=== PATIENT | male | born 1935 | race Caucasian/White ===

== ENCOUNTER → 2019-10-31 10:07 | Outpatient (BNVA) | payer MEDICARE, SELFPAY | PROVIDERS: Family Provider Nurse Practitioner Family; PCP Nurse Practitioner Family; Visit Provider Urology | DX: N41.1 Chronic prostatitis (principal) | CPT/HCPCS: 81001 ==

== ENCOUNTER 2019-11-14 20:07 | Inpatient (IN) | payer MEDICARE, SELFPAY ==
[2019-11-14 20:11] VITALS: BP 167/87; PULSE 87; RESP 16; TEMP 37.6; O2SAT 95; BMI 25.7
--- NOTE | 2019-11-14 20:14 | XRR_ITS ---
PROCEDURE INFORMATION: Exam: XR Chest, 1 View Exam date and time: 11/14/2019 9:05 PM Age: 84 years old Clinical indication: Shortness of breath; Patient HX: Positive covid test 11/12/19. C/O fever, vomiting, generalized weakness. TECHNIQUE: Imaging protocol: XR of the chest Views: 1 view. COMPARISON: No relevant prior studies available. FINDINGS: Lungs: Subtle airspace disease predominantly of an interstitial nature within the right lung slightly greater than left some of which may be related to overlying soft tissues. Possible fibrosis. Consider CT. Pleural space: Unremarkable. No pleural effusion. No pneumothorax. Heart/Mediastinum: Unremarkable. No cardiomegaly. Bones/joints: Unremarkable. XR/XR chest 1V portable [id number] IMPRESSION: Subtle airspace disease predominantly of an interstitial nature within the right lung slightly greater than left some of which may be related to overlying soft tissues. Possible fibrosis. Consider CT. No focal infiltrate.
--- NOTE | 2019-11-14 20:21 | W.ED.FEVER ---
HPI - Fever General: Chief Complaint: Weakness Stated Complaint: COVID Time Seen by Provider: 11/14/19 20:11 Source: patient and EMS Mode of arrival: EMS Limitations: no limitations History of Present Illness: HPI Narrative: 84-year-old male who states he has not been feeling well since Tuesday. He had a COVID test on Tuesday that has came back positive. He states that he has had fevers along with vomiting and generalized weakness. He states he has had difficulty walking due to his weakness. Denies any cough or shortness of breath. He denies any worsening or improving factors. Associated symptoms: Reports nausea and vomiting; Deny chest pain or dysuria Review of Systems Const: Reports: fever(s) Eyes: Denies: blurry vision or eye discomfort ENMT: Denies: throat pain or dental pain Card: Denies: chest pain Resp: Denies: dyspnea GI: Reports: nausea and vomiting : Denies: dysuria Musc: Denies: neck pain or back pain Skin/Breast: Denies: rash Neuro: Reports: weakness in extremities Psych: Denies: depression Loe/Lymph: Denies: easy bruising All/Imm: Denies: urticaria PFSH ED PFSH: Medical History Chronic prostatitis Diabetes mellitus Family history of prostate cancer Surgical History H/O arthroscopy of right knee History of back surgery Family History Mother , at age 81 Cancer lung Father , at age 82 Cancer prostate Social History Smoking and tobacco status: never smoked Alcohol intake: never Marital status: Current occupational status: retired History of recent travel: No Physical Exam Const: COMMON NORMALS: no acute distress, patient oriented x3 and healthy appearing HENMT: COMMON NORMALS: normocephalic and atraumatic HEAD & SCALP: normocephalic and atraumatic Eye: COMMON NORMALS: Equal, round and reactive pupils present and EOMs intact bilaterally PUPIL: Yes Equal, round and reactive pupils present Neck/C-Spine: COMMON NORMALS: full ROM and supple Chest: COMMONS NORMALS: normal inspection of the chest and normal palpation of entire chest wall Resp: COMMON NORMALS: normal respiratory effort, No retractions, No use of accessory muscles and clear to auscultation bilaterally AUSCULTATION: clear to auscultation bilaterally Cardio: COMMON NORMALS: regular rate, regular rhythm and No murmurs present (Cardio) RATE: regular rate RHYTHM: regular rhythm GI: COMMON NORMALS: Normal to inspection, nondistended, normoactive bowel sounds present, Soft to palpation, non-tender and no masses PALPATION: Yes Soft to palpation Extremity: COMMON NORMALS: normal to inspection and full ROM Neuro: COMMON NORMALS: patient oriented x3, moves all extremities and no focal motor deficits Psych: COMMON NORMALS: mental status grossly normal, Normal thought process present and cooperative THOUGHT PROCESS: Normal thought process present Skin: COMMON NORMALS: no rashes or lesions noted and no wounds GENERAL SKIN EXAM: no rashes or lesions noted Course Vital Signs: Vital signs: Vital Signs Temperature 99.6 F 11/14/19 20:11 Pulse Rate 87 11/14/19 20:11 Respiratory Rate 16 11/14/19 20:11 Blood Pressure 167/87 11/14/19 20:11 Pulse Oximetry 95 11/14/19 20:11 MDM - Fever MDM Narrative: Medical decision making narrative: Chalo presents here with generalized weakness along with vomiting likely causing his hyponatremia. So had a fever and did test positive for COVID-19 2 days ago. I spoke to [facility] in [place] and they will not accept him at this time as he is not requiring oxygen and they do not like he needs the viral ICU. I spoke to Dr. Brown and will admit here for his hyponatremia at this time. Lab Data: Labs: Lab Results 11/14/19 11/14/19 11/14/19 Range/Units 20:40 20:40 20:40 WBC 7.6 (4.0-10.0) 10^3/ uL RBC 3.92 L (4.1-5.3) 10^6/u L Hgb 11.8 (11.7-16.6) g/dL Hct 35.0 L (42.0-52.0) % MCV 89.3 (80-94) fL MCH 30.1 (28.0-34.0) pg MCHC 33.7 (30.0-36.0) g/dL RDW 14.5 (12.1-15.1) % Plt Count 159 (130-400) 10^3/c mm MPV 9.5 (7.4-10.4) fL Neut % (Auto) 89.2 % Lymph % (Auto) 4.2 % [place] % (Auto) 5.9 % Eos % (Auto) 0.1 % Baso % (Auto) 0.1 % Neut # (Auto) 6.81 (1.8-7.7) 10^3/u L Lymph # (Auto) 0.3 L (0.8-4.8) 10^3/u L [place] # (Auto) 0.5 (0.2-0.9) 10^3/u L Eos # (Auto) 0.0 (0.0-0.8) 10^3/u L Baso # (Auto) 0.0 (0.0-0.1) 10^3/u L Nucleated RBC % (a uto) 0 % Nucleated RBCs # 0.0 /100WBC PT 14.60 H (10.5-13.3) SECO NDS INR 1.11 (0.8-1.2) Fibrinogen 551 H (184-529) mg/dL D-Dimer 1.76 H (0-0.59) ug/mIFE U Sodium 121 L (136-145) mmol/L Potassium 4.5 (3.5-5.1) mmol/L Chloride 88 L (98-107) mmol/L Carbon Dioxide 20 L (22-29) mmol/L Anion Gap 17.5 (5-19) BUN 13 (8-23) mg/dL Creatinine 0.9 (0.7-1.2) mg/dL Glucose 167 H (65-115) mg/dL Calculated Osmolal ity 252 L (285-295) mOsm/k g Calcium 8.7 (8.5-10.5) mg/dL Total Bilirubin 1.6 H (0.15-1.2) mg/dL AST 36 (0-40) U/L ALT 14 (0-41) U/L Alkaline Phosphata se 73 (40-130) IU/L Total Protein 7.0 (6.6-8.7) g/dL Albumin 4.1 (3.5-5.2) g/dL Globulin 2.9 (1.3-4.6) g/dL Imaging Data^: CXR: Attestation: I personally reviewed and interpreted this imaging study as follows: My impression: no acute abnormality Discharge Plan Discharge Patient Disposition: Admitted As Inpatient Clinical Impression: COVID-19, Weakness, Acute hyponatremia Vomiting Qualifiers: Vomiting type: unspecified Condition: Stable Coding Level of Care Code ED 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
[2019-11-14] MEDS: sodium chloride 0.9% 1,000 ML 999 ML IV (21:24)
[2019-11-14 21:33] LABS: Alanine Aminotransferase 14 U/L (0-41); Albumin Level 4.1 g/dL (3.5-5.2); Alkaline Phosphatase 73 IU/L (40-130); Anion Gap 17.5 (5-19); Aspartate Amino Transferase 36 U/L (0-40); Basophils % 0.1 %; Blood Urea Nitrogen 13 mg/dL (8-23); Calcium 8.7 mg/dL (8.5-10.5); Carbon Dioxide 20 mmol/L (22-29); Chloride 88 mmol/L (98-107); Eosinophils % 0.1 %; Globulin 2.9 g/dL (1.3-4.6); Glucose 167 mg/dL (65-115); Hemoglobin 11.8 g/dL (11.7-16.6); Lymphocytes # 0.3 10^3/uL (0.8-4.8); Lymphocytes % 4.2 %; Mean Corpuscular HGB Conc 33.7 g/dL (30.0-36.0); Mean Corpuscular Hemoglobin 30.1 pg (28.0-34.0); Mean Corpuscular Volume 89.3 fL (80-94); Mean Platelet Volume 9.5 fL (7.4-10.4); Monocytes # 0.5 10^3/uL (0.2-0.9); Monocytes % 5.9 %; Neutrophils # 6.81 10^3/uL (1.8-7.7); Neutrophils % 89.2 %; Nucleated Red Blood Cells % 0 %; Osmolality Calculated 252 mOsm/kg (285-295); Platelet Count 159 10^3/cmm (130-400); Potassium 4.5 mmol/L (3.5-5.1); Red Blood Count 3.92 10^6/uL (4.1-5.3); Red Cell Distribution Width 14.5 % (12.1-15.1); Sodium 121 mmol/L (136-145); Total Bilirubin 1.6 mg/dL (0.15-1.2); White Blood Count 7.6 10^3/uL (4.0-10.0)
[2019-11-14 22:00] LABS: INR 1.11 (0.8-1.2)
[2019-11-14 22:05] LABS: D Dimer 1.76 ug/mIFEU (0-0.59)
[2019-11-14 22:06] LABS: Fibrinogen 551 mg/dL (184-529)
[2019-11-14 22:22] VITALS: BP 129/72; PULSE 72; RESP 22; O2SAT 93
[2019-11-15] VITALS (55 sets, daily range): BP systolic 106–186; BP diastolic 61–111; PULSE 66–103; RESP 15–31; TEMP 36.7–37.4; O2SAT 77–99
--- NOTE | 2019-11-15 00:48 | P.HP_ITS ---
Providers/Chief Complaint Admitting Physician: Renée Carter Primary Care Provider: Pamela Aguila ([facility] [address], [address] [place] [address], phone [phone], fax [phone]) Chief Complaint: COVID History of Present Illness Chalo Hartman is a 84 year old male who presented to the emergency room with nausea and vomiting and general malaise. On Tuesday last week he underwent COVID testing. Results came back positive on Tuesday. He started having vomiting on Tuesday. He was feeling a bit nauseated prior to that. He has had several episodes of vomiting today and has not been able to keep much of any liquid down. He is felt weak and tired and had difficulty getting around the house and taking care of his activities of daily living. He has had fever off and on since last week. He denies actual shortness of breath, cough, sore throat or chest pain. His mouth is dry. [place] go to the bathroom. It sounds like some other people may have been in the bathroom at the time and he thinks that is probably where he got COVID exposure. No other known exposures. His is also positive. In the emergency room, i n addition to continued nausea and vomiting, he was noted to have lymphopenia, elevated d-dimer and fibrinogen along with hyponatremia, elevated bilirubin and some other abnormalities. Clinically he looked quite dry. He is being admitted for further care. His is also being admitted with symptoms and laboratory abnormalities. Review of Systems Const: Reports: chills and change in appetite; Denies: fever(s) Eyes: Denies: change in vision ENMT: Reports: dry mouth; Denies: throat pain, hoarseness, nasal congestion or post nasal drip Card: Reports: lightheadedness and acrocyanosis; Denies: chest pain, palpitations, edema or dyspnea on exertion Resp: Denies: dyspnea, productive cough, non-productive cough, wheezing, pain on inspiration or chest congestion GI: Reports: nausea and vomiting; Denies: abdominal pain, hematemesis, diarrhea, constipation, bloating, GI cramping, hematochezia or melena : Reports: urinary hesitancy and oliguria; Denies: difficulty urinating (nothing new) or dysuria Musc: Reports: muscle weakness; Denies: extremity pain or extremity swelling Skin/Breast: Denies: rash, pruritus or sores Neuro: Reports: numbness in extremities and other (general weakness); Denies: headache(s) or weakness in extremities Psych: Denies: anxiety or depression Leo/Lymph: Denies: easy bruising or easy bleeding Medications/Allergies Home Medications Medication Instructions Recorded Confirmed Last Taken Type atenolol 50 mg tablet 50 mg PO DAILY 10/31/19 11/15/19 11/13/19 History cetirizine 10 mg capsule 10 mg PO DAILY 10/31/19 11/15/19 Unknown History cholecalciferol (vitamin D3) 1,250 PO 10/31/19 10/31/19 Unknown History mcg (50,000 unit) capsule meloxicam 15 mg tablet 15 mg PO DAILY 10/31/19 11/15/19 11/13/19 History tramadol 50 mg tablet 50 mg PO BID PRN 10/31/19 11/15/19 Unknown History gabapentin [Neurontin] 300 mg PO BID 11/15/19 11/15/19 11/13/19 History lisinopril 20 mg PO DAILY 11/15/19 11/15/19 11/13/19 History sertraline 25 mg PO DAILY@18 11/15/19 11/15/19 Unknown History Allergies Allergy/AdvReac Type Severity Reaction Status Date / Time ergocalciferol (vitamin D2) Allergy Unknown Verified 10/30/19 08:48 [From Vitamin D2] PFSH Acute PFSH: Medical History Chronic prostatitis Diabetes mellitus patient does not endorse this diagnosis today but has high blood sugar Family history of prostate cancer Hypertension Osteoarthritis Surgical History H/O arthroscopy of right knee History of back surgery Family History Mother , at age 81 Cancer lung Father , at age 82 Cancer prostate Social History Smoking and tobacco status: never smoked Alcohol intake: never Marital status: Current occupational status: retired History of recent travel: No Vitals/I&O/Wt Last Vital Signs Temp 99.6 F 11/14/19 20:11 Pulse 72 11/14/19 22:22 Resp 22 H 11/14/19 22:22 BP 129/72 11/14/19 22:22 Pulse Ox 93 11/14/19 22:22 Weight last 48 hrs Weight 83.915 kg Physical Exam Const: OTHER: Alert, oriented, mildly ill-appearing, cooperative HENMT: OTHER: Normocephalic atraumatic, membranes dry mucous membranes, no rhinorrhea, no posterior or erythema. Eye: OTHER: Pupils equally round and reactive to light, mild conjunctival injection Neck/C-Spine: OTHER: Supple Resp: OTHER: Clear to auscultation bilaterally no rales rhonchi or wheezes noted, no accessory muscle use noted, no coughing. Cardio: OTHER: Regular rate and rhythm, no murmurs. Decreased peripheral pulses with bluish discoloration to toes of both feet. GI: OTHER: Abdomen soft, nontender, nondistended, positive bowel sounds : OTHER: Normal external genitalia Extremity: NARRATIVE EXTREMITY EXAM: No pitting edema or acute synovitis Neuro: OTHER: Face symmetric, speech clear, handgrip equal, strength equal both feet although he is generally weak to the point that he has a hard time moving himself back in the bed Skin: NARRATIVE SKIN EXAM: Patient with acrocyanosis involving the feet and distal legs. None noted at the fingertips. Skin is dry with decreased turgor. There is mild erythema to both cheeks and his nos.e Data : 11/14/19 20:40 11/15/19 05:20 Other Labs: Laboratory Tests 11/14/19 11/14/19 20:40 20:40 Lymph # (Auto) 0.3 L PT 14.60 H INR 1.11 Fibrinogen 551 H D-Dimer 1.76 H Liver Function 11/14/19 Range/Units 20:40 Total Bilirubin 1.6 H (0.15-1.2) mg/dL AST 36 (0-40) U/L ALT 14 (0-41) U/L Alkaline Phosphatase 73 (40-130) IU/L Albumin 4.1 (3.5-5.2) g/dL CXR: I personally reviewed and interpreted this imaging study as follows: My impression: And with right upper lobe infiltrate and right-sided pulmonary congestion, peribronchial thickening. Film is rotated. No pleural effusions. A&P Assessment and plan (1) COVID-19: Patient symptomatic with generalized weakness, malaise, nausea and vomiting and multiple laboratory abnormalities. Currently with elevated fibrinogen and d-dimer, total bilirubin and lymphopenia. Is not complaining of being short of breath, cough or requiring oxygen but does have abnormal ap pearing chest x-ray. Status: Acute (2) Hypertension: Status: Acute Qualifiers: Hypertension type: essential hypertension Qualified Code(s): I10 - Essential (primary) hypertension (3) Dehydration: With significant hyponatremia and hypochloremia Status: Acute (4) Hyperglycemia: With unclear history of diabetes. Not currently on any treatment for this Status: Acute (5) Chronic prostatitis: Followed at Dr. Vargas's office, currently without change in symptoms Status: Acute Additional A&P Information Inpatient admission IV fluids Additional laboratory studies for monitoring clinical course and prognostic factors have been ordered Continue home atenolol, gabapentin and half lisinopril dose, sertraline and tramadol Lovenox for DVT prophylaxis Serial neuro exams Monitor oxygen saturations closely Sliding scale insulin, check A1c Follow-up official chest x-ray interpretation Supportive care otherwise Plans were discussed with patient and he was given an opportunity to ask questions After discussion of wishes regarding CODE STATUS, patient expressed desire not to be resuscitated and to be allowed natural . He is okay with ICU admission and critical care management otherwise but does not want intubation or CPR. Attestations Medical Necessity Statement*: Anticipated stay greater than 2 midnights in 84-year-old who is COVID positive with symptoms and abnormal laboratory studies and other findings as indicated. Requires close monitoring and supportive care. High risk of rapid clinical decline. 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
[2019-11-15 01:31] LABS: Add On to Lab Order(s) Added
[2019-11-15 01:43] LABS: C Reactive Protein 84.5 mg/L (0.0-4.9); Ferritin 839 ng/mL (30-400); Lactate Dehydrogenase 272 U/L (135-225); Magnesium 1.8 mg/dL (1.7-2.3)
[2019-11-15 02:03] LABS: NT Pro B Type Natriuretic Pept 3199 pg/mL (0-450)
[2019-11-15 02:10] LABS: Creatine Phosphokinase 533 U/L (39-308)
[2019-11-15] MEDS: sodium chloride 0.9% 1,000 ML 75 ML IV ×2 (03:12→16:39)
[2019-11-15] MEDS: enoxaparin 40 mg/0.4 mL Syringe SUBCUT (03:12)
[2019-11-15 06:03] LABS: Fibrinogen 583 mg/dL (184-529)
[2019-11-15 06:05] LABS: Alanine Aminotransferase 17 U/L (0-41); Albumin Level 4.2 g/dL (3.5-5.2); Alkaline Phosphatase 73 IU/L (40-130); Anion Gap 17.9 (5-19); Aspartate Amino Transferase 42 U/L (0-40); Blood Urea Nitrogen 13 mg/dL (8-23); Calcium 8.9 mg/dL (8.5-10.5); Carbon Dioxide 20 mmol/L (22-29); Chloride 91 mmol/L (98-107); Globulin 3.2 g/dL (1.3-4.6); Glucose 115 mg/dL (65-115); Osmolality Calculated 257 mOsm/kg (285-295); Phosphorus 2.7 mg/dL (2.5-4.5); Potassium 3.9 mmol/L (3.5-5.1); Sodium 125 mmol/L (136-145); Total Bilirubin 1.3 mg/dL (0.15-1.2); Total Protein 7.4 g/dL (6.6-8.7)
[2019-11-15 06:06] LABS: D Dimer 2.23 ug/mIFEU (0-0.59)
[2019-11-15 06:10] LABS: Lactate Dehydrogenase 298 U/L (135-225); Magnesium 1.9 mg/dL (1.7-2.3)
[2019-11-15 06:16] LABS: Estmated Average Glucose 126
[2019-11-15 07:46] LABS: Glucose Point of Care 110 mg/dL (70-110)
[2019-11-15] MEDS: atenolol 50 mg Tablet PO (08:27)
[2019-11-15] MEDS: lisinopril 20 mg Tablet 10 MG PO (08:27)
[2019-11-15] MEDS: sertraline 50 mg Tablet 25 MG PO (08:27)
[2019-11-15] MEDS: gabapentin 300 mg Capsule PO ×2 (08:27→16:53)
[2019-11-15] MEDS: cetirizine 10 mg Tablet PO (08:27)
[2019-11-15] MEDS: TRAMadol 50 mg Tablet PO ×2 (09:01→17:27)
[2019-11-15 11:08] LABS: Glucose Point of Care 135 mg/dL (70-110)
--- NOTE | 2019-11-15 11:24 | P.PN_ITS ---
Subjective Subjective: Interval history: patient states he has episodes of shortness of breath, has weakness but improved, still has a poor appetite but states that it is the hospital food, no fever, has a persistent productive cough, no chest pain, was able to ambulate with assistance Vitals/I&O/Wt Last Vital Signs Temp 99.4 F 11/15/19 08:00 Pulse 92 11/15/19 08:00 Resp 22 H 11/15/19 08:00 BP 186/105 11/15/19 08:00 Pulse Ox 99 11/15/19 08:00 11/14/19 11/15/19 11/15/19 22:59 06:59 14:59 Intake Total 1000 / 1000 222 / 1222 300 / 300 Output Total 600 / 600 200 / 200 Balance 1000 / 1000 -378 / 622 100 / 100 Weight last 48 hrs Weight 83.915 kg Physical Exam Const: COMMON NORMALS: no acute distress and patient oriented x3 HENMT: COMMON NORMALS: normocephalic HEAD & SCALP: normocephalic Neck/C-Spine: COMMON NORMALS: no JVD Resp: COMMON NORMALS: normal respiratory effort, No retractions and No use of accessory muscles AUSCULTATION: crackles and wheezes Cardio: COMMON NORMALS: no JVD, regular rate, regular rhythm, S1 normal heart sound present and S2 normal heart sound present RATE: regular rate RHYTHM: regular rhythm HEART SOUNDS: S1 normal heart sound present and S2 normal heart sound present GI: COMMON NORMALS: Normal to inspection, nondistended, normoactive bowel sounds present, Soft to palpation, non-tender, No hepatosplenomegaly present, no masses and no bruits PALPATION: Yes Soft to palpation and Yes No hepatosplenomegaly present Extremity: COMMON NORMALS: capillary refill normal, no clubbing, cyanosis or edema, no calf tenderness and no pedal edema Neuro: COMMON NORMALS: patient oriented x3 Psych: COMMON NORMALS: mental status grossly normal Data : 11/14/19 20:40 11/15/19 05:20 A&P Assessment and plan (1) COVID-19: Patient symptomatic with generalized weakness, malaise, nausea and vomiting and multiple laboratory abnormalities. Currently with elevated fibrinogen and d-dimer, total bilirubin and lymphopenia. Is not complaining of being short of breath, cough or requiring oxygen but does have abnormal appearing chest x-ray. -has intermittent episodes of shortness of breath,and desats to the low 60's (nurses tell me it is the probe that is misreading), is not requiring o2 at this time, still weak, has poor appeptie -changed code status to FULL CODE Status: Acute (2) Pulmonary fibrosis: -Seen on chest x-ray, no smoking history, no new exposures, possible Covid 19 associated -Has a cough, no shortness of breath, no oxygen requirement -Monitor respiratory status Status: Acute (3) Hypertension: -Continue lisinopril 10 mg daily -Add Norvasc 10 mg daily Status: Acute Qualifiers: Hypertension type: essential hypertension Qualified Code(s): I10 - Essential (primary) hypertension (4) Dehydration: With significant hyponatremia and hypochloremia Status: Acute (5) Hyperglycemia: With unclear history of diabetes. Not currently on any treatment for this Globin A1c 6 Status: Acute (6) Chronic prostatitis: Followed at Dr. Vargas's office, currently without change in symptoms Status: Acute (7) Hyponatremia: Status: Acute (8) Elevated d-dimer: Status: Acute (9) Elevated CK: Status: Acute (10) Elevated brain natriuretic peptide (BNP) level: Status: Acute Additional A&P Information Inpatient admission IV fluids Additional laboratory studies for monitoring clinical course and prognostic factors have been ordered Continue home atenolol, gabapentin and half lisinopril dose, sertraline and tramadol Lovenox for DVT prophylaxis Serial neuro exams Monitor oxygen saturations closely Sliding scale insulin Supportive care otherwise Plans were discussed with patient and he was given an opportunity to ask questions Attestations Medical Necessity Statement*: requires countinued hospitalization for covid19, shortness of breath Coding Level of Care Code 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
[2019-11-15] MEDS: amlodipine 10 mg Tablet PO (12:21)
[2019-11-15 16:38] LABS: Glucose Point of Care 187 mg/dL (70-110)
[2019-11-15 20:37] LABS: Glucose Point of Care 195 mg/dL (70-110)
[2019-11-16] VITALS (16 sets, daily range): BP systolic 124–168; BP diastolic 71–82; PULSE 67–110; RESP 15–28; TEMP 36–38.6; O2SAT 84–99
[2019-11-16] MEDS: enoxaparin 40 mg/0.4 mL Syringe SUBCUT (02:36)
[2019-11-16] MEDS: acetaminophen 325 mg Tablet 650 MG PO ×2 (03:03→17:22)
[2019-11-16 05:50] LABS: Troponin T (5th) Once 64 ng/L (0-15)
[2019-11-16] MEDS: sodium chloride 0.9% 1,000 ML 75 ML IV ×2 (05:56→18:02)
[2019-11-16 06:10] LABS: Basophils % 0.2 %; Eosinophils % 0.2 %; Hematocrit 28.6 % (42.0-52.0); Hemoglobin 9.7 g/dL (11.7-16.6); Lymphocytes # 0.5 10^3/uL (0.8-4.8); Lymphocytes % 8.2 %; Mean Corpuscular HGB Conc 33.9 g/dL (30.0-36.0); Mean Corpuscular Hemoglobin 29.8 pg (28.0-34.0); Mean Corpuscular Volume 87.7 fL (80-94); Mean Platelet Volume 9.6 fL (7.4-10.4); Monocytes # 0.4 10^3/uL (0.2-0.9); Monocytes % 6.9 %; Neutrophils # 4.61 10^3/uL (1.8-7.7); Nucleated Red Blood Cells % 0 %; Platelet Count 148 10^3/cmm (130-400); Red Blood Count 3.26 10^6/uL (4.1-5.3); Red Cell Distribution Width 14.3 % (12.1-15.1); White Blood Count 5.5 10^3/uL (4.0-10.0)
[2019-11-16 06:33] LABS: Alanine Aminotransferase 23 U/L (0-41); Albumin Level 3.3 g/dL (3.5-5.2); Alkaline Phosphatase 57 IU/L (40-130); Anion Gap 15.7 (5-19); Aspartate Amino Transferase 65 U/L (0-40); Blood Urea Nitrogen 13 mg/dL (8-23); Carbon Dioxide 20 mmol/L (22-29); Chloride 93 mmol/L (98-107); Globulin 2.6 g/dL (1.3-4.6); Glucose 99 mg/dL (65-115); Osmolality Calculated 256 mOsm/kg (285-295); Potassium 3.7 mmol/L (3.5-5.1); Sodium 125 mmol/L (136-145); Total Bilirubin 1.2 mg/dL (0.15-1.2); Total Protein 5.9 g/dL (6.6-8.7)
[2019-11-16 06:34] LABS: Magnesium 1.8 mg/dL (1.7-2.3)
[2019-11-16 06:35] LABS: Troponin T (5th) Once 88 ng/L (0-15)
[2019-11-16 06:45] LABS: CKMB 8.6 ng/mL (0-10.4); Lactate Dehydrogenase 240 U/L (135-225); NT Pro B Type Natriuretic Pept 4219 pg/mL (0-450)
[2019-11-16 07:04] LABS: CKMB Relative Index 0.8 % (0.0-5.3); Ferritin 1147 ng/mL (30-400)
[2019-11-16 07:05] LABS: Creatine Phosphokinase 1025 U/L (39-308)
[2019-11-16 07:38] LABS: Glucose Point of Care 107 mg/dL (70-110)
[2019-11-16 08:05] LABS: INR 1.17 (0.8-1.2)
[2019-11-16 08:08] LABS: D Dimer 1.99 ug/mIFEU (0-0.59)
[2019-11-16] MEDS: lisinopril 20 mg Tablet 10 MG PO (08:09)
[2019-11-16] MEDS: cetirizine 10 mg Tablet PO (08:09)
[2019-11-16] MEDS: atenolol 50 mg Tablet PO (08:09)
[2019-11-16] MEDS: gabapentin 300 mg Capsule PO ×2 (08:09→17:04)
[2019-11-16] MEDS: amlodipine 10 mg Tablet PO (08:09)
[2019-11-16] MEDS: sertraline 50 mg Tablet 25 MG PO (08:10)
[2019-11-16 08:35] LABS: Fibrinogen 538 mg/dL (184-529)
--- NOTE | 2019-11-16 11:49 | XRR_ITS ---
PROCEDURE INFORMATION: Exam: XR Chest, 1 View Exam date and time: 11/16/2019 12:39 PM Age: 84 years old Clinical indication: Shortness of breath; Additional info: Status of covid lung condition/sob TECHNIQUE: Imaging protocol: XR of the chest Views: 1 view. COMPARISON: CR XR chest 1V portable [id number] 11/14/2019 8:54 PM FINDINGS: Lungs: Unremarkable. No consolidation. Pleural space: Unremarkable. No pleural effusion. No pneumothorax. Heart/Mediastinum: Unremarkable. No cardiomegaly. Bones/joints: Unremarkable. XR/XR chest 1V portable [id number] IMPRESSION: No acute findings.
--- NOTE | 2019-11-16 12:05 | PC.RESP ---
Pulmonary Rehab information sent to patient.
--- NOTE | 2019-11-16 13:10 | PC.RESP ---
Pulmonary Rehab information sent to patient.
[2019-11-16] MEDS: benzonatate 100 mg Capsule PO (15:52)
--- NOTE | 2019-11-16 16:12 | PM.PN ---
Subjective Subjective: Interval history: Overnight patient had one febrile episode, continue to have poor appetite, respiratory status remained stable, however this afternoon patient had an episode of respiratory distress, coughing spell, produced brown-red sputum, required 10 L oxygen mask, saturating in the high 90s, also tachycardia heart rates normal sinus rhythm in the high 120s, During my examination, patient remains on 10 L, oxygen mask, saturating high 90s, heart rates in the 100s, sinus rhythm, he is complaining of shortness of breath, difficulty getting a breath in, has productive sputum, clinically mild retractions, mild nasal flaring, he is belly breathing, but able to speak full sentences, looks a bit dehydrated, looks a bit more ill this afternoon, states that he continues to have a poor appetite, nurses tell me he wet the bed a couple of times, he feels too weak to get up out of bed I provided a couple options to patient, first we will get a repeat arterial blood gas can, to see how he is doing We can get remdesivir, but it will be here by tomorrow afternoon at least, he could wait until then, but his respiratory status might worsen Other options I offered him was transferred up to [facility] or [facility] He still wants to be a full code, is okay with intubation if his respiratory status starts to decline He states that he wants to stay here, see how he does, and if he worsens he is okay to go to a tertiary level car Vitals/I&O/Wt Last Vital Signs Temp 97.4 F L 11/16/19 14:46 Pulse 81 11/16/19 14:46 Resp 21 H 11/16/19 14:46 BP 137/72 11/16/19 14:46 Pulse Ox 97 11/16/19 14:36 11/16/19 11/16/19 11/16/19 06:59 14:59 22:59 Intake Total 1716.25 / 3216.25 1150 / 1150 Output Total 175 / 1175 650 / 650 Balance 1541.25 / 2041.25 500 / 500 Weight last 48 hrs Weight 83.915 kg Physical Exam Const: COMMON NORMALS: patient oriented x3 and alert GENERAL APPEARANCE: ill appearing HENMT: COMMON NORMALS: normocephalic HEAD & SCALP: normocephalic Neck/C-Spine: COMMON NORMALS: no lymphadenopathy Resp: COMMON NORMALS: normal respiratory effort EFFORT & INSPECTION: Yes able to speak in complete sentences, Yes tachypneic, Yes Actively coughing and Yes uses accessory muscles AUSCULTATION: rhonchi and wheezes Cardio: COMMON NORMALS: regular rhythm, S1 normal heart sound present and S2 normal heart sound present RATE: tachycardic RHYTHM: regular rhythm HEART SOUNDS: S1 normal heart sound present and S2 normal heart sound present GI: COMMON NORMALS: Normal to inspection, nondistended, normoactive bowel sounds present, Soft to palpation and non-tender PALPATION: Yes Soft to palpation Extremity: COMMON NORMALS: normal to inspection and capillary refill normal Neuro: COMMON NORMALS: patient oriented x3 SENSORIUM/ORIENTATION: Yes alert Data : 11/16/19 05:30 11/16/19 05:30 A&P Assessment and plan (1) COVID-19: Patient symptomatic with generalized weakness, malaise, nausea and vomiting and multiple laboratory abnormalities. Currently with elevated fibrinogen and d-dimer, total bilirubin and lymphopenia at 0.5.Hemoglobin 9.7, serum sodium, 125, bicarb 20, AST 65, creatinine kinase 1025, CRP 14.3, BNP 4219 -Chest x-ray this morning in my opinion shows right right lung infiltrates which seem new -Overnight has tachypnea episodes, T-max 101.4 -This afternoon had episodes of respiratory distress, on 10 L oxygen mask, tachycardia, currently mild retractions, nasal flaring, mild belly breathing, complaining of shortness of breath -We will repeat arterial blood gas -If patient continues to worsen, will transfer up to [facility] -If patient improves or stays stable, will consider keeping him here, and he can get remdesvir tomorrow -Still wants to remain a full code, if his respiratory status worsens, is okay with intubation -We will get sputum cultures -changed code status to FULL CODE Status: Acute (2) Pulmonary fibrosis: -Seen on chest x-ray, no smoking history, no new exposures, possible Covid 19 associated -Has a cough, no shortness of breath, no oxygen requirement -Monitor respiratory status Status: Acute (3) Hypertension: -Continue lisinopril 10 mg daily -Add Norvasc 10 mg daily Status: Acute Qualifiers: Hypertension type: essential hypertension Qualified Code(s): I10 - Essential (primary) hypertension (4) Dehydration: With significant hyponatremia and hypochloremia Status: Acute (5) Hyperglycemia: With unclear history of diabetes. Not currently on any treatment for this Globin A1c 6 Status: Acute (6) Chronic prostatitis: Followed at Dr. Vargas's office, currently without change in symptoms Status: Acute (7) Hyponatremia: Status: Acute (8) Elevated d-dimer: Status: Acute (9) Elevated CK: Status: Acute (10) Elevated brain natriuretic peptide (BNP) level: Status: Acute Additional A&P Information Inpatient admission IV fluids Additional laboratory studies for monitoring clinical course and prognostic factors have been ordered Continue home atenolol, gabapentin and half lisinopril dose, sertraline and tramadol Lovenox for DVT prophylaxis Serial neuro exams Monitor oxygen saturations closely Sliding scale insulin Supportive care otherwise Plans were discussed with patient and he was given an opportunity to ask questions Attestations Medical Necessity Statement*: Patient requires continued hospitalization due to acute respiratory failure secondary to COVID-19 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
[2019-11-16 16:20] LABS: Glucose Point of Care 148 mg/dL (70-110)
[2019-11-16 16:20] LABS: Glucose Point of Care 174 mg/dL (70-110)
--- NOTE | 2019-11-16 16:51 | PC.NURSE ---
Patient had an extensive coughing fit. Patient is having a hard time clearing his secretions at this time. Patient has been placed on a NC at 4LPM and has since been increased to 10LPM via an Oxymask. Patient seems to be working a little bit harder to breath at this time. Attempt was made to contact the physician but I received the Voice mail. Will attempt to contact again. Patient incontinent of urine more frequently today. Might consider placing a carter for skin protection and less exertion on the patient when attempting to urinate in urinal.
[2019-11-16] MEDS: guaiFENesin 600 mg Tablet PO (17:04)
[2019-11-16] MEDS: TRAMadol 50 mg Tablet PO (17:23)
[2019-11-16 17:58] LABS: ABG PCO2 25.1 mmHg (35-45); ABG PH Result 7.48 (7.35-7.45); Alveolar-Arterial Oxygen Gradi 51.1 mmHg (5-10); Arterial Blood Gas Hematocrit 33.9 % (42-52); Base Excess ABG -3.7 mmol/L (-2.0-2.0); Blood Gas Allen Test Pos; Blood Gas Sample Site Radial, left; Blood Gas Sample Type Arterial; Carboxyhemoglobin 1.3 %THgb (0.4-20.1); HCO3 ABG 18.6 mmol/L (22-26); HGB O2 Sat 93.3 % (95-100); Ionized Calcium Level - ABG 1.1 mmol/L (1.1-1.4); Methemoglobin 0.7 % (0.4-1.5); Oxygen Device OXY MASK; Oxygen Saturation ABG 95.2; Potassium Level - ABG 3.8 mmol/L (3.5-5.0); Total Hemoglobin 11.1 g/dL (14-18)
[2019-11-16] MEDS: dexamethasone 10 mg/mL INJ 6 MG IV (18:39)
[2019-11-16] MEDS: pantoprazole 40 mg SDV IVP (18:40)
--- NOTE | 2019-11-16 19:50 | ECG_ITS ---
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 Measurements Intervals Thurman Rate: 71 P: 77 MS: 146 QRS: -14 QRSD: 112 T: 9 QT: 442 QTc: 483 Interpretive Statements SINUS RHYTHM MODERATE INTRAVENTRICULAR CONDUCTION DELAY [105+ ms QRS DURATION, 80+ ms Q/S IN V1/V2, NO Q AND 60+ ms R IN I/aVL/V5/V6] PROLONGED QT INTERVAL No previous ECG available for comparison Electronically Signed On 11-17-2019 10:28:22 CDT by Tye Lugo M.D. [id number]
--- NOTE | 2019-11-16 19:50 | XRR_ITS ---
PROCEDURE INFORMATION: Exam: XR Chest, 1 View Exam date and time: 11/16/2019 8:19 PM Age: 84 years old Clinical indication: Dyspnea; Additional info: Hypoxemia/// covid TECHNIQUE: Imaging protocol: XR of the chest Views: 1 view. COMPARISON: CR XR chest 1V portable [id number] 11/16/2019 12:39 PM FINDINGS: Limitations: The study is made with less than full inspiration. Lungs: There is increasing airspace opacity in both lungs more on the right than on the left compared with the examination done earlier today. Part of the apparent change may be due to decrease in lung volumes. Pleural space: Unremarkable. No pleural effusion. No pneumothorax. Heart/Mediastinum: Heart is within normal limits of size. Bones/joints: Unremarkable. XR/XR chest 1V portable [id number] IMPRESSION: Increasing pulmonary infiltrates.
[2019-11-16] MEDS: FUROsemide 10 mg/mL SDV 2mL 20 MG IVP (20:15)
--- NOTE | 2019-11-16 20:17 | PM.EVENT ---
Event Note Event Note: Notified by Dr Duffy that patient developed hypoxemia recently and required up to 10L via oxymask. Sats as low as 80%. Febrile at time. Given tylenol and currently afebrile again per nurse. He was given dexamethasone and has been coughing up phlegm. Currently heart rate and oxygen levels, are improved as is respiratory rate. On 7L presently. Blood pressures are actually a touch high. Recent ABG, am CXR and labs reviewed. Medication list reviewed as were notes. I have gone on and stopped his IV fluids and will give him a 20 mg dose of IV Lasix. Held amlodipine for time being due to planned diuresis. I have ordered a repeat chest x-ray given the clinical change. This morning chest x-ray was read by radiology as clear. I changed dexamethasone to every 6 hours dosing, 6 mg, which is what is currently being recommended in the literature. He has sliding scale insulin ordered if needed, A1c was 6. also changed Lovenox from prophylactic to treatment dose. He is anemic but I am wondering if it is a touch dilutional. Platelets are okay, PT and PTT are okay. D-dimer and fibrinogen were actually a bit down this morning. No reports of any bleeding per discussion with nursing but did have some sputum described as brownish-red earlier. Will monitor. I have spoken with nursing staff about seeing if he can tolerate self prone position for period of time. EKG has also been ordered. We will monitor patient's clinical condition through the night. Should he decompensate further, will strongly recommend transfer to [facility] this evening. It was discussed earlier by Dr. Duffy but patient had declined, preferring to stay here with his . She is doing well comparatively. Remdesivir has been ordered and will, I have been told, be here in the morning. Additional care without personal physical evaluation of Mr Hartman 35 minutes
--- NOTE | 2019-11-16 21:35 | PC.NURSE ---
PATIENT STATUS Patient laid in prone position for 30 minutes. Pt is now on 4LNC, sating 98. Pt started on 6L oxy mask at around 1999 was transitioned to 6LNC. Pt is alert and orientated. Fluids were stopped per DR Carter, lasix given, EKG and Chest xray taken. Pt was diaphoretic, seemed to have had a break in fever. Recent temp is 97.9 orally. Pt has no complaints at this time. Pt does not appear to be in distress at this time. Pt was sponged off, bed changed. Lungs remain clear and diminished.
[2019-11-16] MEDS: enoxaparin 80 mg/0.8 mL Syringe SUBCUT (22:22)
[2019-11-17] VITALS (8 sets, daily range): BP systolic 100–138; BP diastolic 53–84; PULSE 57–80; RESP 14–23; TEMP 36.4–36.8; O2SAT 98–100
[2019-11-17] MEDS: dexamethasone 10 mg/mL INJ 6 MG IV ×4 (00:13→17:11)
[2019-11-17 05:30] LABS: Hematocrit 30.3 % (42.0-52.0); Hemoglobin 9.9 g/dL (11.7-16.6); Lymphocytes # 0.2 10^3/uL (0.8-4.8); Lymphocytes % 6.3 %; Mean Corpuscular HGB Conc 32.7 g/dL (30.0-36.0); Mean Corpuscular Volume 88.9 fL (80-94); Mean Platelet Volume 9.5 fL (7.4-10.4); Monocytes # 0.1 10^3/uL (0.2-0.9); Monocytes % 3.5 %; Neutrophils # 3.11 10^3/uL (1.8-7.7); Neutrophils % 89.6 %; Nucleated Red Blood Cells % 0 %; Platelet Count 161 10^3/cmm (130-400); Red Blood Count 3.41 10^6/uL (4.1-5.3); Red Cell Distribution Width 14.4 % (12.1-15.1); White Blood Count 3.5 10^3/uL (4.0-10.0)
[2019-11-17 05:43] LABS: Magnesium 2.1 mg/dL (1.7-2.3); Phosphorus 3.2 mg/dL (2.5-4.5)
[2019-11-17 05:45] LABS: Fibrinogen 591 mg/dL (184-529)
--- NOTE | 2019-11-17 06:08 | PC.NURSE ---
SHIFT SUMMARY PT HAS REMAINED ALERT AND ORIENTATED. PT IS NOW ON ROOM AIR, SATING 97-99. PT STATED HE FEELS BETTER THIS MORNING, PT SITTING UP IN BED WATCHING TV. PT LUNGS REMAIN DIMINISHED. PT HAS 2300 IN URINE OUT THUS FAR. PT HAS A COUGH. PT HAS TURNED AT HIS REQUEST. PER DR MORENO, THERE IS NO INDICATION TO LAY IN PRONE POSITION THIS MORNING SINCE PT IS ON ROOM AIR. NO SWELLING NOTED TO EXTREMITIES. PT HAS NO COMPLAINTS THIS MORNING.
--- NOTE | 2019-11-17 06:20 | PC.NURSE ---
Pt had 7-8 beat run of vtach. Pt had complaints, asymptomatic. Dr Carter notified.
[2019-11-17 06:27] LABS: Alanine Aminotransferase 35 U/L (0-41); Albumin Level 3.4 g/dL (3.5-5.2); Alkaline Phosphatase 68 IU/L (40-130); Anion Gap 17.1 (5-19); Aspartate Amino Transferase 58 U/L (0-40); Blood Urea Nitrogen 15 mg/dL (8-23); Calcium 8.3 mg/dL (8.5-10.5); Carbon Dioxide 21 mmol/L (22-29); Chloride 93 mmol/L (98-107); Globulin 2.3 g/dL (1.3-4.6); Glucose 207 mg/dL (65-115); Osmolality Calculated 266 mOsm/kg (285-295); Potassium 4.1 mmol/L (3.5-5.1); Sodium 127 mmol/L (136-145); Total Protein 5.7 g/dL (6.6-8.7)
[2019-11-17 06:28] LABS: C Reactive Protein 132.1 mg/L (0.0-4.9)
[2019-11-17 06:38] LABS: NT Pro B Type Natriuretic Pept 3832 pg/mL (0-450)
[2019-11-17 06:42] LABS: Troponin T (5th) Once 58 ng/L (0-15)
[2019-11-17 06:49] LABS: Lactate Dehydrogenase 264 U/L (135-225)
[2019-11-17 06:51] LABS: Procalcitonin 0.34 ng/mL (0-0.5)
[2019-11-17 06:55] LABS: Ferritin 1403 ng/mL (30-400)
[2019-11-17 06:56] LABS: Creatine Phosphokinase 533 U/L (39-308)
--- NOTE | 2019-11-17 07:00 | XRR_ITS ---
PROCEDURE INFORMATION: Exam: XR Chest, 1 View Exam date and time: 11/17/2019 5:03 AM Age: 84 years old Clinical indication: Shortness of breath; Patient HX: Positive covid; Additional info: SOB TECHNIQUE: Imaging protocol: XR of the chest Views: 1 view. COMPARISON: CR XR chest 1V portable [id number] 11/16/2019 8:05 PM FINDINGS: Lungs: There is improving aeration in the lungs compared with yesterday's examination. Some persistent interstitial infiltrates are seen in the right hemithorax and left lung base. Pleural space: Unremarkable. No pleural effusion. No pneumothorax. Heart/Mediastinum: Unremarkable. No cardiomegaly. Bones/joints: Unremarkable. XR/XR chest 1V portable [id number] IMPRESSION: There is improving aeration in the lungs compared with yesterday's examination although some persistent interstitial infiltrates are seen in the right hemithorax and left lung base.
[2019-11-17 07:34] LABS: Glucose Point of Care 177 mg/dL (70-110)
[2019-11-17 07:34] LABS: Glucose Point of Care 189 mg/dL (70-110)
[2019-11-17] MEDS: sertraline 50 mg Tablet 25 MG PO (08:04)
[2019-11-17] MEDS: cetirizine 10 mg Tablet PO (08:05)
[2019-11-17] MEDS: gabapentin 300 mg Capsule PO ×2 (08:05→18:10)
[2019-11-17] MEDS: lisinopril 20 mg Tablet 10 MG PO (08:05)
[2019-11-17] MEDS: guaiFENesin 600 mg Tablet PO ×2 (08:05→18:10)
[2019-11-17] MEDS: enoxaparin 80 mg/0.8 mL Syringe SUBCUT ×2 (08:06→20:33)
[2019-11-17] MEDS: atenolol 50 mg Tablet PO (08:06)
[2019-11-17 16:46] LABS: Glucose Point of Care 368 mg/dL (70-110)
[2019-11-17 16:46] LABS: Glucose Point of Care 236 mg/dL (70-110)
--- NOTE | 2019-11-17 17:55 | PM.PN ---
Subjective Subjective: Interval history: Yesterday evening, patient had episodes of shortness of breath, requiring up to 8 L of oxygen, was started on Decadron, Acosta catheter was placed, received 20 mg IV Lasix, he started to improve, he diuresed roughly 2 L, did receive prone positioning for a little bit, his fluids were stopped, so far he is dropped roughly diurese today to liter, he is received rib does have air this morning Patient seen this afternoon, sitting up into a chair, enjoying his dinner, he has only touched 50% of it, enjoying the fresh from his family brought, smiling, saying that he is doing much better, still having some heaviness with his breathing, still having a nonproductive cough, some intermittent shortness of breath, no fevers, no chills, still has generalized weakness, poor appetite, stated that when he got up to the chair he did feel short of breath a bit lightheaded. Overall he is doing much better, Vitals/I&O/Wt Last Vital Signs Temp 98.1 F 11/17/19 16:00 Pulse 65 11/17/19 16:00 Resp 14 11/17/19 16:00 BP 129/68 11/17/19 16:00 Pulse Ox 99 11/17/19 16:00 11/17/19 11/17/19 11/17/19 06:59 14:59 22:59 Intake Total 700 / 700 500 / 1200 Output Total 1600 / 2950 700 / 700 900 / 1600 Balance -1600 / -892.5 0 / 0 -400 / -400 Physical Exam Const: COMMON NORMALS: no acute distress and patient oriented x3 HENMT: COMMON NORMALS: normocephalic HEAD & SCALP: normocephalic Neck/C-Spine: COMMON NORMALS: no JVD Lymph: LYMPHATIC: no lymphadenopathy noted Chest: COMMONS NORMALS: normal inspection of the chest Resp: COMMON NORMALS: normal respiratory effort, No retractions and No use of accessory muscles AUSCULTATION: rhonchi and wheezes Cardio: COMMON NORMALS: no JVD, regular rate, regular rhythm, S1 normal heart sound present and S2 normal heart sound present RATE: regular rate RHYTHM: regular rhythm HEART SOUNDS: S1 normal heart sound present and S2 normal heart sound present GI: COMMON NORMALS: Normal to inspection, nondistended, normoactive bowel sounds present, Soft to palpation, non-tender, No hepatosplenomegaly present, no masses and no bruits PALPATION: Yes Soft to palpation and Yes No hepatosplenomegaly present Extremity: COMMON NORMALS: capillary refill normal, no clubbing, cyanosis or edema, no calf tenderness and no pedal edema Neuro: COMMON NORMALS: patient oriented x3 Psych: COMMON NORMALS: mental status grossly normal Urinary Catheter Management^: Acosta: Cath Placed During This Visit: yes Reason for Continuing Indwelling Catheter: Accurate Measurement of Urinary Output in Critically Ill Patients Urinary Catheter Date of Insertion: 11/16/19 Urinary Catheter Time of Insertion: 17:52 Data : 11/17/19 04:45 11/17/19 04:45 A&P Assessment and plan (1) COVID-19: Patient doing significantly better, Still has some crackles and wheezing on exam, will give another 20 mg of Lasix, creatinine 0.8, potassium 4.1 currently with elevated fibrinogen and d-dimer, total bilirubin and lymphopenia -Chest x-ray this morning in my opinion shows right right lung infiltrates -Afebrile overnight, minimal tachypneic episodes -Stop Decadron, will dose tomorrow based on his progress -Continue sliding-scale as blood sugars have been elevated due to steroids, start Levemir 8 units tonight -Continue remdesvir -We will try to improve appetite tomorrow, get up and ambulate with a walker tomorrow -Follow sputum cultures, blood cultures -Still wants to remain a full code, if his respiratory status worsens, is okay with intubation -changed code status to FULL CODE Status: Acute (2) Acute respiratory failure with hypoxia: -Secondary to COVID-19, pulmonary edema -Doing well with intermittent diuresis, fluid stopped -Doing well with right does appear -Continue remdesvir -Treatment diuresis -Continue Acosta, if his strength improves will consider stopping -Is on therapeutic Lovenox to decrease his risk of pulmonary embolism -If he starts to require increased amounts of oxygen will consider CT angiogram of the chest, although at this point fairly unlikely he has had a pulmonary embolism Status: Acute (3) Pulmonary fibrosis: -Seen on chest x-ray, no smoking history, no new exposures, possible Covid 19 associated -Has a cough, no shortness of breath, no oxygen requirement -Monitor respiratory status Status: Acute (4) Hypertension: -Continue lisinopril 10 mg daily -Add Norvasc 10 mg daily Status: Acute Qualifiers: Hypertension type: essential hypertension Qualified Code(s): I10 - Essential (primary) hypertension (5) Dehydration: With significant hyponatremia and hypochloremia Status: Acute (6) Hyperglycemia: With unclear history of diabetes. Not currently on any treatment for this Globin A1c 6 Status: Acute (7) Chronic prostatitis: Followed at Dr. Vargas's office, currently without change in symptoms Status: Acute (8) Hyponatremia: Status: Acute (9) Elevated d-dimer: Status: Acute (10) Elevated CK: Status: Acute (11) Elevated brain natriuretic peptide (BNP) level: Status: Acute Additional A&P Information Inpatient admission IV fluids Additional laboratory studies for monitoring clinical course and prognostic factors have been ordered Continue home atenolol, gabapentin and half lisinopril dose, sertraline and tramadol Lovenox for DVT prophylaxis Serial neuro exams Monitor oxygen saturations closely Sliding scale insulin Supportive care otherwise Plans were discussed with patient and he was given an opportunity to ask questions Attestations Medical Necessity Statement*: Patient requires continued hospitalization due to acute respiratory failure secondary COVID-19 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
[2019-11-17] MEDS: FUROsemide 10 mg/mL SDV 2mL 20 MG IVP (18:10)
--- NOTE | 2019-11-17 18:12 | XRR_ITS ---
PROCEDURE INFORMATION: Exam: XR Chest, 1 View Exam date and time: 11/17/2019 6:13 PM Age: 84 years old Clinical indication: Shortness of breath; Patient HX: COVID; Additional info: SOB TECHNIQUE: Imaging protocol: XR of the chest Views: Frontal portable upright view of the chest. COMPARISON: CR XR chest 1V portable [id number] 11/17/2019 4:50 AM FINDINGS: Tubes, catheters and devices: EKG leads are present overlying the chest. Lungs: The pulmonary vasculature is normal. Stable lateral mid lung zone mild focal pulmonary infiltrate. Mild left medial basilar subsegmental atelectasis, improved. Pleural space: No pleural effusion. No pneumothorax. Heart/Mediastinum: Stable mild cardiomegaly. Mediastinum: Stable. Bones/joints: Stable. Inferior right glenohumeral joint para-articular ossification, stable XR/XR chest 1V portable [id number] IMPRESSION: 1. Stable lateral mid lung zone mild focal pulmonary infiltrate. 2. Mild left medial basilar subsegmental atelectasis, improved.
[2019-11-17] MEDS: pantoprazole 40 mg SDV IVP (18:34)
[2019-11-17 20:32] LABS: Glucose Point of Care 209 mg/dL (70-110)
--- NOTE | 2019-11-17 20:43 | PC.NURSE ---
Pt visualized in chair watching television with spouse at bedside. No complaints of pain or shortness of breath. Pt requests to go back to bed. Assisted x1. Pt able to stand okay, but very unsteady when pivoting from chair to bed. Positioned in bed with pillows placed. Acosta catheter in place and positioned below bladder off floor. Bilateral lower lobes remain diminished. Pt reports no BM, but bowel sounds WNL and decreased appetite does continue per pt report. No skin issues noted or edema. Water provided. Pt denies any further requests. Room picked up, call light in reach, bed in low position.
[2019-11-18] VITALS (7 sets, daily range): BP systolic 114–153; BP diastolic 56–93; PULSE 54–78; RESP 8–20; TEMP 36.1–36.8; O2SAT 96–99
[2019-11-18 05:12] LABS: Basophils % 0.1 %; Eosinophils % 0.1 %; Hematocrit 30.3 % (42.0-52.0); Hemoglobin 10.3 g/dL (11.7-16.6); Lymphocytes # 0.5 10^3/uL (0.8-4.8); Lymphocytes % 5.1 %; Mean Corpuscular Hemoglobin 30.1 pg (28.0-34.0); Mean Corpuscular Volume 88.6 fL (80-94); Mean Platelet Volume 9.3 fL (7.4-10.4); Monocytes # 0.2 10^3/uL (0.2-0.9); Monocytes % 2.3 %; Neutrophils % 91.3 %; Nucleated Red Blood Cells % 0 %; Platelet Count 207 10^3/cmm (130-400); Red Blood Count 3.42 10^6/uL (4.1-5.3); White Blood Count 9.1 10^3/uL (4.0-10.0)
[2019-11-18 05:30] LABS: C Reactive Protein 77.4 mg/L (0.0-4.9)
[2019-11-18 05:50] LABS: Creatine Phosphokinase 191 U/L (39-308)
[2019-11-18 05:56] LABS: Magnesium 2.1 mg/dL (1.7-2.3)
[2019-11-18 06:12] LABS: Phosphorus 2.5 mg/dL (2.5-4.5)
[2019-11-18 06:26] LABS: Glucose Point of Care 192 mg/dL (70-110)
--- NOTE | 2019-11-18 06:29 | PC.NURSE ---
[place] pt speaking loudly. Entered the patient's room to find him slid down in bed and carter in hand. Instructed patient to stop pulling at catheter. Pt continued while this RN gowned to enter room. Pt's spouse at bedside encouraging to stop. Once this RN entered the room, patient stopped pulling at catheter. Pt stated that he was wet and needed to pee. Carter catheter in place and draining. Vital signs stable. Pt alert to self and spouse, but states 1922 or 5 when asked the year. Unaware that he is at the hospital. Pt also states when asked why he is at the hospital, I came for chest pain, but they kept my instead. Spouse states that he is never confused like this. Pt laughing inappropriately and saying things like knock, knock. Ever heard of that, and then proceeding to laugh, but immediately forgets what he just said when asked. No complaints of pain, but does state that he feels confused and does not know if he is okay. 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 No facial droop. Pupils equal. No further neurological symptoms. Blood sugar obtained- 192. Dr. Carter notified of the above at 0625. Stated to continue to check neurological status, and if any further changes to have oncoming shift call day time hospitalist. CMP pending from morning labs. Will continue to monitor very closely. Spouse instructed to use call button if any further changes noted. Voiced understanding.
[2019-11-18 06:49] LABS: Procalcitonin 0.39 ng/mL (0-0.5)
[2019-11-18] MEDS: lisinopril 20 mg Tablet 10 MG PO (08:47)
[2019-11-18] MEDS: enoxaparin 80 mg/0.8 mL Syringe SUBCUT (08:47)
[2019-11-18] MEDS: sertraline 50 mg Tablet 25 MG PO (08:47)
[2019-11-18] MEDS: atenolol 50 mg Tablet PO (08:47)
[2019-11-18] MEDS: gabapentin 300 mg Capsule PO ×2 (08:48→17:10)
[2019-11-18] MEDS: guaiFENesin 600 mg Tablet PO ×2 (08:48→17:10)
[2019-11-18] MEDS: cetirizine 10 mg Tablet PO (08:48)
[2019-11-18 15:09] LABS: Alanine Aminotransferase 41 U/L (0-41); Albumin Level 3.4 g/dL (3.5-5.2); Alkaline Phosphatase 61 IU/L (40-130); Aspartate Amino Transferase 51 U/L (0-40); Blood Urea Nitrogen 19 mg/dL (8-23); Calcium 8.9 mg/dL (8.5-10.5); Carbon Dioxide 20 mmol/L (22-29); Chloride 93 mmol/L (98-107); Globulin 2.7 g/dL (1.3-4.6); Glucose 171 mg/dL (65-115); Osmolality Calculated 267 mOsm/kg (285-295); Sodium 128 mmol/L (136-145); Total Bilirubin 0.8 mg/dL (0.15-1.2); Total Protein 6.1 g/dL (6.6-8.7)
--- NOTE | 2019-11-18 17:42 | PM.PN ---
Subjective Subjective: Interval history: Patient states that he is doing well this morning, no fevers, no chills, no cough, was able to ambulate to the bathroom in a walker, still weak, his malaise is improving he says, his fatigue is improving, no diarrhea, no rashes, tolerating remdesvir, no allergic reaction, Vitals/I&O/Wt Last Vital Signs Temp 98.2 F 11/18/19 16:00 Pulse 78 11/18/19 16:00 Resp 19 H 11/18/19 16:00 BP 138/85 11/18/19 16:00 Pulse Ox 99 11/18/19 16:00 11/18/19 11/18/19 11/18/19 06:59 14:59 22:59 Intake Total 480 / 1880 950 / 950 700 / 1650 Output Total 1150 / 3750 900 / 900 950 / 1850 Balance -670 / -1870 50 / 50 -250 / -200 Physical Exam Const: COMMON NORMALS: no acute distress and patient oriented x3 HENMT: COMMON NORMALS: normocephalic HEAD & SCALP: normocephalic Neck/C-Spine: COMMON NORMALS: no JVD Resp: COMMON NORMALS: normal respiratory effort, No retractions, No use of accessory muscles and clear to auscultation bilaterally AUSCULTATION: clear to auscultation bilaterally Cardio: COMMON NORMALS: no JVD, regular rate, regular rhythm, S1 normal heart sound present and S2 normal heart sound present RATE: regular rate RHYTHM: regular rhythm HEART SOUNDS: S1 normal heart sound present and S2 normal heart sound present GI: COMMON NORMALS: Normal to inspection, nondistended, normoactive bowel sounds present, Soft to palpation, non-tender, No hepatosplenomegaly present, no masses and no bruits PALPATION: Yes Soft to palpation and Yes No hepatosplenomegaly present Extremity: COMMON NORMALS: capillary refill normal, no clubbing, cyanosis or edema, no calf tenderness and no pedal edema Neuro: COMMON NORMALS: patient oriented x3 Psych: COMMON NORMALS: mental status grossly normal Urinary Catheter Management^: Acosta: Cath Placed During This Visit: yes Reason for Continuing Indwelling Catheter: Accurate Measurement of Urinary Output in Critically Ill Patients Urinary Catheter Date of Insertion: 11/16/19 Urinary Catheter Time of Insertion: 17:52 Data : 11/18/19 04:30 11/18/19 04:30 Micro: Microbiology 11/18/19 11:30 Gram Stain - Final Sputum - Expectorated Sputum A&P Assessment and plan (1) COVID-19: Patient doing significantly better -I am pleased to see his improvement, seems that from does appear has accelerated his improvement, -No crackles on examination today -currently with elevated fibrinogen and d-dimer, total bilirubin and lymphopenia -Chest x-ray shows right right lung infiltrates -Afebrile overnight, minimal tachypneic episodes -Stopped Decadron, -Continue sliding-scale as blood sugars have been elevated due to steroids, start Levemir 8 units nightly -Continue remdesvir day 06/13, spoke to Dr. Briscoe, both the studies of remdesvir were done up to the day of discharge, as he is doing well, we can likely discharge him tomorrow depending on his strength and breathing -Continue to encourage ambulation -Follow sputum cultures, blood cultures -Still wants to remain a full code, if his respiratory status worsens, is okay with intubation -changed code status to FULL CODE Status: Acute (2) Acute respiratory failure with hypoxia: -Secondary to COVID-19, pulmonary edema -Doing well with intermittent diuresis, fluid stopped -Doing well with right does appear -Continue remdesvir -Treatment diuresis -Continue Acosta, if his strength improves will consider stopping -Is on therapeutic Lovenox to decrease his risk of pulmonary embolism -If he starts to require increased amounts of oxygen will consider CT angiogram of the chest, although at this point fairly unlikely he has had a pulmonary embolism Status: Acute (3) Pulmonary fibrosis: -Seen on chest x-ray, no smoking history, no new exposures, possible Covid 19 associated -Has a cough, no shortness of breath, no oxygen requirement -Monitor respiratory status Status: Acute (4) Hypertension: -Continue lisinopril 10 mg daily -Add Norvasc 10 mg daily Status: Acute Qualifiers: Hypertension type: essential hypertension Qualified Code(s): I10 - Essential (primary) hypertension (5) Dehydration: With significant hyponatremia and hypochloremia Status: Acute (6) Hyperglycemia: With unclear history of diabetes. Not currently on any treatment for this Globin A1c 6 Status: Acute (7) Chronic prostatitis: Followed at Dr. Vargas's office, currently without change in symptoms Status: Acute (8) Hyponatremia: Status: Acute (9) Elevated d-dimer: Status: Acute (10) Elevated CK: Status: Acute (11) Elevated brain natriuretic peptide (BNP) level: Status: Acute Additional A&P Information Inpatient admission Additional laboratory studies for monitoring clinical course and prognostic factors have been ordered Continue home atenolol, gabapentin and half lisinopril dose, sertraline and tramadol Therapeutic Lovenox Serial neuro exams Monitor oxygen saturations closely Sliding scale insulin Supportive care otherwise Plans were discussed with patient and he was given an opportunity to ask questions Plan on discharge in next 24 hours Attestations Medical Necessity Statement*: Patient requires hospitalization for acute respiratory failure second to COVID-19 Coding Level of Care Code Acute Surgical Garment Assembly Supervisor for Chg Fwd Diagnoses COVID-19 U07.1 Acute respiratory failure with hypoxia J96.01 Pulmonary fibrosis J84.10 Hypertension I10 Hypertension type: essential hypertension Dehydration E86.0 Hyperglycemia R73.9 Chronic prostatitis N41.1 Hyponatremia E87.1 Elevated d-dimer R79.89 Elevated CK R74.8 Elevated brain natriuretic peptide (BNP) level R79.89
--- NOTE | 2019-11-18 19:00 | PC.NURSE ---
Received report from AURE Malik. Patient is resting comfortably. Vital signs are stable. Currently on room air and maintaining oxygen saturation at 98%-99%. Call light in reach, bed in lowest position. Will continue to monitor.
[2019-11-18] MEDS: enoxaparin 60 mg/0.6 mL Syringe 42 MG SUBCUT (21:01)
[2019-11-18] MEDS: pantoprazole 40 mg SDV IVP (21:02)
[2019-11-19 00:34] VITALS: BP 126/71; PULSE 61; RESP 17; O2SAT 98
[2019-11-19 05:00] VITALS: BP 126/71; PULSE 58; RESP 11; TEMP 36.6; O2SAT 98
[2019-11-19 05:07] LABS: Basophils % 0.1 %; Eosinophils % 0.2 %; Lymphocytes # 1.1 10^3/uL (0.8-4.8); Lymphocytes % 8.9 %; Mean Corpuscular HGB Conc 33.1 g/dL (30.0-36.0); Mean Corpuscular Hemoglobin 29.6 pg (28.0-34.0); Mean Corpuscular Volume 89.3 fL (80-94); Mean Platelet Volume 9.4 fL (7.4-10.4); Monocytes # 0.3 10^3/uL (0.2-0.9); Monocytes % 2.7 %; Neutrophils # 10.37 10^3/uL (1.8-7.7); Neutrophils % 87.3 %; Nucleated Red Blood Cells % 0 %; Platelet Count 332 10^3/cmm (130-400); Red Blood Count 1.69 10^6/uL (4.1-5.3); Red Cell Distribution Width 14.1 % (12.1-15.1); White Blood Count 11.9 10^3/uL (4.0-10.0)
[2019-11-19 05:38] LABS: Alanine Aminotransferase 43 U/L (0-41); Albumin Level 3.2 g/dL (3.5-5.2); Alkaline Phosphatase 55 IU/L (40-130); Anion Gap 13.5 (5-19); Aspartate Amino Transferase 33 U/L (0-40); Blood Urea Nitrogen 18 mg/dL (8-23); Calcium 8.3 mg/dL (8.5-10.5); Carbon Dioxide 24 mmol/L (22-29); Chloride 92 mmol/L (98-107); Globulin 2.7 g/dL (1.3-4.6); Glucose 103 mg/dL (65-115); Osmolality Calculated 259 mOsm/kg (285-295); Potassium 3.5 mmol/L (3.5-5.1); Sodium 126 mmol/L (136-145); Total Bilirubin 0.8 mg/dL (0.15-1.2); Total Protein 5.9 g/dL (6.6-8.7)
[2019-11-19 05:39] LABS: Phosphorus 2.4 mg/dL (2.5-4.5)
[2019-11-19 05:40] LABS: C Reactive Protein 39.8 mg/L (0.0-4.9); Magnesium 2.1 mg/dL (1.7-2.3)
[2019-11-19 05:47] LABS: Procalcitonin 0.23 ng/mL (0-0.5)
[2019-11-19 05:48] LABS: Hematocrit 15.1 % (42.0-52.0)
[2019-11-19 05:58] LABS: Creatine Phosphokinase 108 U/L (39-308)
[2019-11-19] MEDS: TRAMadol 50 mg Tablet PO (06:18)
[2019-11-19 06:22] LABS: Eosinophils % 0.4 %; Hematocrit 30.2 % (42.0-52.0); Lymphocytes # 0.8 10^3/uL (0.8-4.8); Lymphocytes % 9.4 %; Mean Corpuscular HGB Conc 33.1 g/dL (30.0-36.0); Mean Corpuscular Hemoglobin 28.9 pg (28.0-34.0); Mean Corpuscular Volume 87.3 fL (80-94); Mean Platelet Volume 9.3 fL (7.4-10.4); Monocytes # 0.3 10^3/uL (0.2-0.9); Neutrophils # 7.22 10^3/uL (1.8-7.7); Neutrophils % 86.1 %; Nucleated Red Blood Cells % 0 %; Platelet Count 245 10^3/cmm (130-400); Red Blood Count 3.46 10^6/uL (4.1-5.3); White Blood Count 8.4 10^3/uL (4.0-10.0)
--- NOTE | 2019-11-19 06:40 | PC.NURSE ---
SHIFT SUMMARY No acute events over night. Vital signs stable. Patient resting comfortably.
[2019-11-19] MEDS: atenolol 50 mg Tablet PO (08:09)
[2019-11-19] MEDS: cetirizine 10 mg Tablet PO (08:10)
[2019-11-19] MEDS: enoxaparin 60 mg/0.6 mL Syringe 42 MG SUBCUT (08:10)
[2019-11-19] MEDS: gabapentin 300 mg Capsule PO (08:10)
[2019-11-19] MEDS: lisinopril 20 mg Tablet 10 MG PO (08:11)
[2019-11-19] MEDS: guaiFENesin 600 mg Tablet PO (08:11)
[2019-11-19] MEDS: sertraline 50 mg Tablet 25 MG PO (08:11)
[2019-11-19 08:30] VITALS: BP 126/71; TEMP 36.8
[2019-11-19] MEDS: sodium chloride 1 gm Tablet PO (08:54)
--- NOTE | 2019-11-19 09:06 | PC.SOCIAL ---
IMM Update Called and reviewed IMM at this time.
[2019-11-19 11:52] VITALS: RESP 20; TEMP 36.7
[2019-11-19 12:00] VITALS: RESP 20; TEMP 36.7
[2019-11-19 12:26] VITALS: BP 125/68; PULSE 62; RESP 22; TEMP 36.8; O2SAT 100
[2019-11-19 12:37] LABS: Hematocrit 28.6 % (42.0-52.0); Hemoglobin 9.4 g/dL (11.7-16.6); Mean Corpuscular HGB Conc 32.9 g/dL (30.0-36.0); Mean Corpuscular Hemoglobin 29.3 pg (28.0-34.0); Mean Corpuscular Volume 89.1 fL (80-94); Mean Platelet Volume 9.4 fL (7.4-10.4); Platelet Count 257 10^3/cmm (130-400); Red Blood Count 3.21 10^6/uL (4.1-5.3); White Blood Count 8.4 10^3/uL (4.0-10.0)
--- NOTE | 2019-11-19 12:47 | PM.DCS ---
Discharge Providers Date of Admission: 11/15/19 00:46 Date of Discharge: November 19, 2019 Attending Provider at Admission: Renée Carter MD Attending Provider at Discharge: Camden Duffy MD Diagnoses at Discharge Discharge Diagnosis (1) COVID-19: Status: Acute (2) Acute respiratory failure with hypoxia: Status: Acute (3) Pulmonary fibrosis: Status: Acute (4) Hypertension: Status: Acute Qualifiers: Hypertension type: essential hypertension Qualified Code(s): I10 - Essential (primary) hypertension (5) Dehydration: Status: Acute (6) Hyperglycemia: Status: Acute (7) Chronic prostatitis: Status: Acute (8) Hyponatremia: Status: Acute (9) Elevated d-dimer: Status: Acute (10) Elevated CK: Status: Acute (11) Elevated brain natriuretic peptide (BNP) level: Status: Acute Reason for Visit Reason for Visit: COVID Hospital Course Discharge Summary: This is a 84-year-old male with a past medical history of hypertension, diet-controlled type 2 diabetes mellitus, chronic prostatitis, COVID-19 positive who presents [facility] due to complaints of shortness of breath, generalized weakness, poor appetite Patient was admitted to the viral ICU date for acute respiratory failure with hypoxia secondary to COVID-19. Patient's inflammatory markers were increased, had lymphopenia, elevated fibrinogen, d-dimer, total bili, chest x-ray showed right lung infiltrates. On day 2 of admission, patient had significant episodes of tachypnea, fevers, shortness of breath, cough requiring up to 10 L of oxygen. He was placed on Lasix, Decadron, and received a remdesvir, placed in prone positioning. Patient clinically improved, diuresed roughly 2 L, tolerated Decadron well, tolerated remdesvir well. Was off oxygen, lungs were clear, ambulating in a walker, shortness of breath had improved, cough improved. On day of discharge, patient was doing well, ambulating with walker, no shortness of breath episodes, minimal cough, lungs sound clear. Patient received 1 day of Decadron, 2 doses of remdesvir. Decision was made to stop these medications on day of discharge, as he has significantly improved clinically. Patient was discharged home, with albuterol inhaler, close follow-up with primary care provider in 1 week Throughout his admission, patient remained hyponatremic, some degree of dehydration, some I believe related to COVID-19, on discharge, serum sodium was 126, he was clinically doing well, appetite improved, no seizure-like episodes, no headache, blurry vision. I have discharged patient on salt tablets 1 g twice daily, instructions to drink electrolyte balance fluids such as Gatorade, and to repeat blood work in 1 week. I advised patient to monitor for headache, blurry vision, seizure-like episodes and if so come back to the emergency room. Given patient's evidence of pulmonary fibrosis of the right lung on chest x-ray imaging, I would recommend repeating imaging possible CT of the chest with contrast in 1 month, and a follow-up with Dr. Briscoe. Physical Exam Const: COMMON NORMALS: no acute distress and patient oriented x3 HENMT: COMMON NORMALS: normocephalic HEAD & SCALP: normocephalic Neck/C-Spine: COMMON NORMALS: no JVD Resp: COMMON NORMALS: normal respiratory effort, No retractions, No use of accessory muscles and clear to auscultation bilaterally AUSCULTATION: clear to auscultation bilaterally Cardio: COMMON NORMALS: no JVD, regular rate, regular rhythm, S1 normal heart sound present and S2 normal heart sound present RATE: regular rate RHYTHM: regular rhythm HEART SOUNDS: S1 normal heart sound present and S2 normal heart sound present GI: COMMON NORMALS: Normal to inspection, nondistended, normoactive bowel sounds present, Soft to palpation, non-tender, No hepatosplenomegaly present, no masses and no bruits PALPATION: Yes Soft to palpation and Yes No hepatosplenomegaly present Extremity: COMMON NORMALS: capillary refill normal, no clubbing, cyanosis or edema, no calf tenderness and no pedal edema Neuro: COMMON NORMALS: patient oriented x3 Psych: COMMON NORMALS: mental status grossly normal Urinary Catheter Management^: Acosta: Cath Placed During This Visit: yes, but has since been removed by the nurse Reason for Continuing Indwelling Catheter: Decision to DC Catheter Urinary Catheter Date of Insertion: 11/16/19 Urinary Catheter Time of Insertion: 17:52 Date Urinary Catheter Removed: 11/19/19 Time Urinary Catheter Discontinued: 08:00 Discharge Data Data Completed and Pending: Completed Studies During Hospitalization Category Date Time Status XR chest 1V coleen ble [id number] Routine Exams 11/16/19 11:49 Completed XR chest 1V coleen ble [id number] Routine Exams 11/16/19 19:50 Completed XR chest 1V coleen ble [id number] Routine Exams 11/17/19 07:00 Completed XR chest 1V coleen ble [id number] Routine Exams 11/17/19 18:12 Completed XR chest 1V coleen ble [id number] Stat Exams 11/14/19 20:14 Completed Pending at discharge Category Date Time Status Complete Blood Co unt w/Auto AM LABS Lab 11/20/19 04:00 Ordered Complete Blood Co unt w/Auto AM LABS Lab 11/21/19 04:00 Ordered Complete Blood Co unt w/Man Dif Stat Lab 11/19/19 11:50 Results Comprehensive Met abolic Panel AM LA BS Lab 11/20/19 04:00 Ordered Comprehensive Met abolic Panel AM LA BS Lab 11/21/19 04:00 Ordered Comprehensive Met abolic Panel Stat Lab 11/19/19 11:50 Received Sputum Culture an d Gram Stain Routi ne Lab 11/18/19 11:30 Results Labs from last 24 hours 11/19/19 11/19/19 11/19/19 11:50 06:00 04:40 WBC 8.4 8.4 RBC 3.21 L 3.46 L Hgb 9.4 L 10.0 L D Hct 28.6 L 30.2 L D MCV 89.1 87.3 MCH 29.3 28.9 MCHC 32.9 33.1 RDW 14.0 14.0 Plt Count 257 245 MPV 9.4 9.3 Neut % (Auto) 86.1 Lymph % (Auto) 9.4 Alpine % (Auto) 3.0 Eos % (Auto) 0.4 Baso % (Auto) 0.0 Neut # (Auto) 7.22 Lymph # (Auto) 0.8 Alpine # (Auto) 0.3 Eos # (Auto) 0.0 Baso # (Auto) 0.0 Nucleated RBC % (a uto) 0 Total Counted Pending Segmented Neutroph ils Pending Lymphocytes (Manua l) Pending Nucleated RBCs # 0.0 Platelet Estimate Pending Sodium Potassium Chloride Carbon Dioxide Anion Gap BUN Creatinine Glucose Calculated Osmolal ity Calcium Phosphorus 2.4 L Magnesium Total Bilirubin AST ALT Alkaline Phosphata se Creatine Kinase C-Reactive Protein Total Protein Albumin Globulin Procalcitonin 11/19/19 11/19/19 11/19/19 04:40 04:40 04:40 WBC 11.9 H RBC 1.69 L Hgb 5.0 L* Hct 15.1 L* MCV 89.3 MCH 29.6 MCHC 33.1 RDW 14.1 Plt Count 332 MPV 9.4 Neut % (Auto) 87.3 Lymph % (Auto) 8.9 Alpine % (Auto) 2.7 Eos % (Auto) 0.2 Baso % (Auto) 0.1 Neut # (Auto) 10.37 H Lymph # (Auto) 1.1 Alpine # (Auto) 0.3 Eos # (Auto) 0.0 Baso # (Auto) 0.0 Nucleated RBC % (a uto) 0 Total Counted Segmented Neutroph ils Lymphocytes (Manua l) Nucleated RBCs # 0.0 Platelet Estimate Sodium 126 L Potassium 3.5 Chloride 92 L Carbon Dioxide 24 Anion Gap 13.5 BUN 18 Creatinine 0.6 L Glucose 103 Calculated Osmolal ity 259 L Calcium 8.3 L Phosphorus Magnesium Total Bilirubin 0.8 AST 33 ALT 43 H Alkaline Phosphata se 55 Creatine Kinase 108 C-Reactive Protein Total Protein 5.9 L Albumin 3.2 L Globulin 2.7 Procalcitonin 0.23 11/19/19 11/18/19 04:40 04:30 WBC RBC Hgb Hct MCV MCH MCHC RDW Plt Count MPV Neut % (Auto) Lymph % (Auto) Alpine % (Auto) Eos % (Auto) Baso % (Auto) Neut # (Auto) Lymph # (Auto) Alpine # (Auto) Eos # (Auto) Baso # (Auto) Nucleated RBC % (a uto) Total Counted Segmented Neutroph ils Lymphocytes (Manua l) Nucleated RBCs # Platelet Estimate Sodium 128 L Potassium 4.0 Chloride 93 L Carbon Dioxide 20 L Anion Gap 19.0 BUN 19 Creatinine 0.7 Glucose 171 H Calculated Osmolal ity 267 L Calcium 8.9 Phosphorus Magnesium 2.1 Total Bilirubin 0.8 AST 51 H ALT 41 Alkaline Phosphata se 61 Creatine Kinase C-Reactive Protein 39.8 H Total Protein 6.1 L Albumin 3.4 L Globulin 2.7 Procalcitonin Vitals: Last Vital Signs Temp 98.2 F 11/19/19 12:26 Pulse 62 11/19/19 12:26 Resp 22 H 11/19/19 12:26 BP 125/68 11/19/19 12:26 Pulse Ox 100 07/13/20 12:26 Discharge Plan Discharge Patient Disposition: Home, Self-Care Condition: Stable Prescriptions: New lisinopril 20 mg Tablet 10 mg PO DAILY 30 Days Qty: 30 RF: 0 albuterol sulfate 90 mcg/actuation Hfa Aerosol Inhaler 2 puff inhalation Q4H.RESPIRATORY PRN (Reason: Shortness Of Breath) 30 Days Qty: 18 RF: 0 benzonatate 100 mg Capsule 100 mg PO TID PRN (Reason: Cough) 15 Days Qty: 30 RF: 0 Mucinex 600 mg Tablet Extended Release 12hr 600 mg PO BID PRN (Reason: congestion) 15 Days Qty: 30 RF: 0 sodium chloride 1 gram Tablet 1 g PO BID 15 Days Qty: 30 RF: 0 Lasix 20 mg tablet 20 mg PO DAILY PRN (Reason: for shortness of breath) 15 Days Qty: 15 RF: 0 Continued Zyrtec 10 mg capsule 10 mg PO DAILY RF: 0 atenolol 50 mg tablet 50 mg PO DAILY RF: 0 tramadol 50 mg tablet 50 mg PO BID PRN (Reason: Pain) RF: 0 cholecalciferol (vitamin D3) 1,250 mcg (50,000 unit) capsule PO RF: 0 Neurontin 300 mg capsule 300 mg PO BID RF: 0 sertraline 25 mg tablet 25 mg PO DAILY@18 RF: 0 Discontinued meloxicam 15 mg tablet 15 mg PO DAILY RF: 0 lisinopril 20 mg tablet 20 mg PO DAILY RF: 0 Discharge Orders: Discharge Order (Routine); Ordered 11/19/19 Ordered By: Camden Duffy Other Ambulatory Orders: Complete Blood Count w/Auto (Routine) Timeframe: 1 Week Location: Determined by Patient Ordered By: Camden Duffy Comprehensive Metabolic Panel (Routine) Timeframe: 1 Week Facility: [facility] - Location: Lab - Main Lab Ordered By: Camden Duffy Referrals: Asuncion Briscoe MD [Physician] - 1 month (pulmonary fibrosis) Discharge Diet: Regular Discharge Activity: Resume usual activity Patient Instructions: Viral Pneumonia (DC), Hyponatremia (DC) Activity Restrictions/Additional Instructions: -Please drink Gatorade or vitamin water, or electrolyte mathis to increase sodium levels -Please take salt tablets as prescribed -If you feel lightheaded, dizzy, or have seizures please call 911 -Please use albuterol inhaler as needed Discharge Attestations Time Spent in Discharge Care*: less than 30 min Quality Metrics Clinical Quality Measures During this hospital stay, did patient experience: None Coding Level of Care Code Acute Adjunct Spanish Instructor for Chg 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 Diagnoses COVID-19 U07.1 Acute respiratory failure with hypoxia J96.01 Pulmonary fibrosis J84.10 Hypertension I10 Hypertension type: essential hypertension Dehydration E86.0 Hyperglycemia R73.9 Chronic prostatitis N41.1 Hyponatremia E87.1 Elevated d-dimer R79.89 Elevated CK R74.8 Elevated brain natriuretic peptide (BNP) level R79.89
[2019-11-19 12:50] LABS: Alanine Aminotransferase 41 U/L (0-41); Albumin Level 3.2 g/dL (3.5-5.2); Alkaline Phosphatase 55 IU/L (40-130); Anion Gap 12.4 (5-19); Aspartate Amino Transferase 34 U/L (0-40); Blood Urea Nitrogen 18 mg/dL (8-23); Calcium 8.3 mg/dL (8.5-10.5); Carbon Dioxide 25 mmol/L (22-29); Chloride 93 mmol/L (98-107); Globulin 2.3 g/dL (1.3-4.6); Glucose 140 mg/dL (65-115); Osmolality Calculated 263 mOsm/kg (285-295); Potassium 3.4 mmol/L (3.5-5.1); Sodium 127 mmol/L (136-145); Total Bilirubin 0.8 mg/dL (0.15-1.2); Total Protein 5.5 g/dL (6.6-8.7)
[2019-11-19 13:44] LABS: Absolute Neutrophil 7.6 10^3/cmm (1.4-6.5); Absolute Segmented Neutrophil 7.4 10/cmm (1.6-7.1); Band Neutrophils Absolute 0.2 10^3/cmm (0.0-1.2); Lymphocytes 9 %; Monocytes Absolute 0.1 10^3/cmm (0.1-0.6); Ovalocytes Trace; Platelet Estimate Normal (Normal); Poikilocytosis Trace; Segmented Neutrophils 88 %; Total Cells Counted 100 (0-100)
--- NOTE | 2019-11-19 16:07 | PC.NURSE ---
Pt discharged via wheelchair to family member. All belongings sent with patient and his spouse, verbalized understanding of all discharge instructions.
--- NOTE | 2019-11-21 16:40 | PM.GBL ---
Pre-Anesthetic test Height/Weight: Height 1.8 m Weight 83.915 kg Temp Pulse Resp BP Pulse Ox 98.2 F 62 22 H 125/68 100 11/19/19 12:26 11/19/19 12:26 11/19/19 12:26 11/19/19 12:26 11/19/19 12:26 Providers/Reason For Consult Attending Physician: Camden Duffy MD Home Medications/Allergies new Home Medications and Allergies Home Medications Medication Instructions Recorded Confirmed Last Taken Type atenolol 50 mg tablet 50 mg PO DAILY 10/31/19 11/15/19 11/13/19 History cetirizine 10 mg capsule 10 mg PO DAILY 10/31/19 11/15/19 Unknown History cholecalciferol (vitamin D3) 1,250 PO 10/31/19 10/31/19 Unknown History mcg (50,000 unit) capsule tramadol 50 mg tablet 50 mg PO BID PRN 10/31/19 11/15/19 Unknown History Neurontin 300 mg PO BID 11/15/19 11/15/19 11/13/19 History sertraline 25 mg PO DAILY@18 11/15/19 11/15/19 Unknown History albuterol sulfate 2 puff INHALATION Q4H.RESPIRATORY 11/19/19 Unknown Rx PRN 30 Days #18 gm benzonatate 100 mg PO TID PRN 15 Days #30 cap 11/19/19 Unknown Rx furosemide [Lasix] 20 mg PO DAILY PRN 15 Days #15 tab 11/19/19 Unknown Rx guaifenesin [Mucinex] 600 mg PO BID PRN 15 Days #30 tab 11/19/19 Unknown Rx lisinopril 10 mg PO DAILY 30 Days #30 tab 11/19/19 Unknown Rx sodium chloride 1 g PO BID 15 Days #30 tab 11/19/19 Unknown Rx Allergies Allergy/AdvReac Type Severity Reaction Status Date / Time ergocalciferol (vitamin D2) Allergy Unknown Verified 10/30/19 08:48 [From Vitamin D2] Exam revised Urinary Catheter Management^ Acosta: Cath Placed During This Visit yes, but has since been removed by the nurse Reason for Continuing Indwelling Catheter Decision to DC Catheter Urinary Catheter Date of Insertion 11/16/19 Urinary Catheter Time of Insertion 17:52 Date Urinary Catheter Removed 11/19/19 Time Urinary Catheter Discontinued 08:00 Data : 11/19/19 11:50 11/19/19 11:50 Micro: Microbiology 11/18/19 11:30 Sputum - Expectorated Sputum Gram Stain - Final 11/18/19 11:30 Sputum - Expectorated Sputum Sputum Culture - Final A&P test Assessment and plan (1) COVID-19: Patient symptomatic with generalized weakness, malaise, nausea and vomiting and multiple laboratory abnormalities. Currently with elevated fibrinogen and d-dimer, total bilirubin and lymphopenia. Is not complaining of being short of breath, cough or requiring oxygen but does have abnormal appearing chest x-ray. Status: Acute Code(s): U07.1 - Covid-19 (2) Acute respiratory failure with hypoxia: Status: Resolved Code(s): J96.01 - Acute respiratory failure with hypoxia (3) Pulmonary fibrosis: Status: Acute Code(s): J84.10 - Pulmonary fibrosis, unspecified (4) Hypertension: Status: Acute Qualifiers: Hypertension type: essential hypertension Qualified Code(s): I10 - Essential (primary) hypertension Code(s): I10 - Essential (primary) hypertension (5) Dehydration: With significant hyponatremia and hypochloremia Status: Acute Code(s): E86.0 - Dehydration (6) Hyperglycemia: With unclear history of diabetes. Not currently on any treatment for this Status: Resolved Code(s): R73.9 - Hyperglycemia, unspecified (7) Chronic prostatitis: Followed at Dr. Vargas's office, currently without change in symptoms Status: Resolved Code(s): N41.1 - Chronic prostatitis (8) Hyponatremia: Status: Acute Code(s): E87.1 - Hypo-osmolality and hyponatremia (9) Elevated d-dimer: Status: Resolved Code(s): R79.89 - Other specified abnormal findings of blood chemistry (10) Elevated CK: Status: Resolved Code(s): R74.8 - Abnormal levels of other serum enzymes (11) Elevated brain natriuretic peptide (BNP) level: Status: Resolved Code(s): R79.89 - Other specified abnormal findings of blood chemistry
--- NOTE | 2019-11-21 19:22 | PM.PN ---
Subjective Subjective: Interval history: Testing testing 1234 pt w patient went to [facility] to the mrket so I do use which also distant is a little bit of a delay over here compared to in the hospital and then if you wanted to have a stylette with that here and correct in the middle of that and then then you can correct that and redo it if you do not use the dragon the time that is well-nourished and [place] is some people aa but I am to then I do alexandre Vitals/I&O/Wt Last Vital Signs Temp 98.2 F 11/19/19 12:26 Pulse 62 11/19/19 12:26 Resp 22 H 11/19/19 12:26 BP 125/68 11/19/19 12:26 Pulse Ox 100 11/19/19 12:26 Physical Exam Urinary Catheter Management^: Acosta: Cath Placed During This Visit: yes, but has since been removed by the nurse Reason for Continuing Indwelling Catheter: Decision to DC Catheter Urinary Catheter Date of Insertion: 11/16/19 Urinary Catheter Time of Insertion: 17:52 Date Urinary Catheter Removed: 11/19/19 Time Urinary Catheter Discontinued: 08:00 Data : 11/19/19 11:50 11/19/19 11:50 Coding Level of Care Code Acute Relays Draftsperson for Maverick Butler
[2019-11-21 19:40] LABS: Glucose Point of Care 260 mg/dL (70-110)
[2019-11-21 19:40] LABS: Glucose Point of Care 92 mg/dL (70-110)
[2019-11-21 19:40] LABS: Glucose Point of Care 184 mg/dL (70-110)
[2019-11-21 19:40] LABS: Glucose Point of Care 217 mg/dL (70-110)
== END 2019-11-19 16:12 | disposition home or self-care (01) | DRG 177 ==
LOC: ER 22:01 → ICU 11-15 00:58
PROVIDERS: Emergency Medicine; Admitting Provider Hospitalist; Visit Provider Family Medicine
DX: U07.1 COVID-19 (principal); J96.01 Acute respiratory failure with hypoxia; E87.1 Hypo-osmolality and hyponatremia; J84.10 Pulmonary fibrosis, unspecified; N41.1 Chronic prostatitis; E86.0 Dehydration; E11.65 Type 2 diabetes mellitus with hyperglycemia; I10 Essential (primary) hypertension; M19.90 Unspecified osteoarthritis, unspecified site
CPT/HCPCS: 12345; 36415; 36416; 36600; 51702; 71045; 80051; 80053; 82550; 82553; 82728; 82810; 82962; 83036; 83615; 83735; 83880; 83986; 84100; 84145; 84484; 85007; 85025; 85027; 85378; 85384; 85610; 85730; 86140; 86141; 87070; 87205; 93005; 96372; 96375; 99283; C9113; J1100; J1650; J1815; J1940; J7030

== ENCOUNTER → 2019-11-27 10:30 | Outpatient (BNVA) | payer MEDICARE, SELFPAY | PROVIDERS: Visit Provider Nurse Practitioner Family | DX: E87.1 Hypo-osmolality and hyponatremia (principal); M79.89 Other specified soft tissue disorders | CPT/HCPCS: 80048 ==

== ENCOUNTER 2020-01-07 14:38 | Outpatient (CLI) | payer MEDICARE, SELFPAY ==
--- NOTE | 2020-01-07 14:46 | XRR_ITS ---
PROCEDURE INFORMATION: Exam: XR Chest, 2 Views Exam date and time: 01/07/2020 3:00 PM Age: 84 years old Clinical indication: Other: Lung infiltrate TECHNIQUE: Imaging protocol: XR of the chest Views: 2 views. COMPARISON: CR XR chest 1V portable [id number] 11/18/2019 7:49 AM FINDINGS: Lungs: Low lung volumes seen. No consolidation. Pleural space: Unremarkable. No pleural effusion. No pneumothorax. Heart/Mediastinum: Unremarkable. No cardiomegaly. Bones/joints: Dorsal spine osteopenia and osteoarthritis. XR/XR chest 2V* [id number] IMPRESSION: No acute findings. Osteopenia and osteoarthritis
--- NOTE | 2020-01-07 15:00 | USCV_ITS ---
Chalo Hartman Age: 84 Gender: M : 1935 Exam Date: 01/07/2020 15:02 Ordering Phys: Asuncion Briscoe MD Technologist: Yovany Lopez [place]am [place] [facility] [place]: SOB BP: / HR: 73 Rhythm: Sinus Technical Quality: Adequate MEASUREMENTS (Male / Female) Normal Values 2D ECHO LV Diastolic Diameter PLAX 4.2 cm 4.2 - 5.9 / 3.9 - 5.3 cm LV Systolic Diameter PLAX 3.0 cm IVS Diastolic Thickness 1.1 cm 0.6 - 1.0 / 0.6 - 0.9 cm IVS Systolic Thickness 1.4 cm LVPW Diastolic Thickness 1.3 cm 0.6 - 1.0 / 0.6 - 0.9 cm LVPW Systolic Thickness 1.4 cm LVOT Diameter 2.0 cm LV Ejection Fraction 2D Teich 55.8 % LV Ejection Fraction MOD 2C 50.8 % LV Ejection Fraction 2C AL 51.0 % LA Diameter 5.0 cm LA Width 4.3 cm LA Height 5.0 cm RA Width 3.7 cm RA Height 4.9 cm Aorta at Sinotubular Diameter 0.9 cm M-MODE LV Diastolic Diameter MM 5.5 cm 4.2 - 5.9 / 3.9 - 5.3 cm LV Systolic Diameter MM 3.7 cm LV Ejection Fraction MM Teich 59.1 % IVS Diastolic Thickness MM 1.1 cm 0.6 - 1.0 / 0.6 - 0.9 cm IVS Systolic Thickness MM 1.3 cm LVPW Diastolic Thickness MM 1.1 cm 0.6 - 1.0 / 0.6 - 0.9 cm LVPW Systolic Thickness MM 1.6 cm RV Diastolic Diameter MM 2.0 cm Aortic Annulus Diameter 3.7 cm LA Ao Ratio MM 1.3 MV E Point Septal Separation 1.9 cm DOPPLER AV Peak Velocity 109.0 cm/s LVOT Peak Velocity 67.0 cm/s AV Area Cont Eq vti 1.9 cm squared AV Area Cont Eq pk 2.0 cm squared MV Area PHT 5.0 cm squared Mitral E to A Ratio 3.6 MV E' Velocity 102.0 cm/s TR Peak Velocity 440.0 cm/s TR Peak Gradient 77.5 mmHg TV Peak E Velocity 130.0 cm/s Right Atrial Pressure 3.0 mmHg Pulmonary Artery Systolic Pressu 80.4 mmHg FINDINGS Left Ventricle Normal left ventricular cavity size. Normal left ventricular systolic function. Left ventricular ejection fraction is estimated at 55%. In the presence of atrial fibrillation diastolic function cannot be assessed accurately.no regional wall motion abnormalities. Right Ventricle The right ventricle is normal in size and function. Severe pulmonary hypertension, RVSP 80.4 mmHg. Right Atrium The right atrium is normal in size. Left Atrium Moderately increased left atrial size. Mitral Valve Moderately thickened mitral valve. Moderate mitral annular calcification. No mitral valve stenosis. Moderate mitral valve regurgitation. Aortic Valve Structurally normal aortic valve without significant sclerosis or stenosis. There is no aortic regurgitation. Tricuspid Valve Moderate tricuspid valve regurgitation. Pulmonic Valve Mild pulmonary valve regurgitation. Pericardium Normal pericardium without effusion. Aorta Normal ascending aorta dimension. CONCLUSIONS 1-Normal left ventricular cavity size. Normal left ventricular systolic function. Left ventricular ejection fraction is estimated at 55%. In the presence of atrial fibrillation diastolic function cannot be assessed accurately.no regional wall motion abnormalities. 2-Moderately increased left atrial size. 3-Moderately thickened mitral valve. Moderate mitral annular calcification. No mitral valve stenosis. Moderate mitral valve regurgitation. 4-Structurally normal aortic valve without significant sclerosis or stenosis. There is no aortic regurgitation. 5-Moderate tricuspid valve regurgitation. 6-Mild pulmonary valve regurgitation. 7-The right ventricle is normal in size and function. Severe pulmonary hypertension, RVSP 80.4 mmHg. 8-There are no prior echocardiogram studies to compare. Tiki Galarza MD (Electronically Signed) Final Date: 08 January 2020 18:22 S
== END 2020-01-07 14:39 | disposition home or self-care (01) ==
LOC: RAD 14:40
PROVIDERS: Visit Provider Internal Medicine Critical Care Medicine
DX: R06.02 Shortness of breath (principal); R91.8 Other nonspecific abnormal finding of lung field; M85.88 Other specified disorders of bone density and structure, other site; M47.9 Spondylosis, unspecified; I08.1 Rheumatic disorders of both mitral and tricuspid valves; I27.20 Pulmonary hypertension, unspecified
CPT/HCPCS: 71046; 93306

== ENCOUNTER 2020-03-19 08:05 | Outpatient (CLI) | payer MEDICARE, SELFPAY ==
[2020-03-19 08:36] VITALS: BMI 27.0
--- NOTE | 2020-03-19 08:36 | NMCV_ITS ---
NM luis perf SPECT r/s* [id number] Chalo Hartman Age: 84 Gender: M : 1935 Exam Date: 03/19/2020 08:36 Ordering Phys: Marnie Keith MD ([email or web address]) Technologist: WILFRED Falcon Exam Location: [facility] Indications: SOB STRESS TEST Please [facility] IMAGE PROTOCOL Rest/Stress 1 Lexiscan Day Radiopharmaceutical Dose (mCi) Administration Site Administered by Rest: Tc-99m 10.6 IV WILFRED Falcon Sestamibi Stress:Tc-99m 32.5 IV WILFRED Maya Sestamibi Rest: 19-Mar-2020 60 Discovery 630 Stress: 19-Mar-2020 45 Discovery 630 0.4mg Lexiscan. Images obtained in supine and prone position. SPECT RESULTS Technical Quality: Good Raw Data Analysis: Normal Image Corrections: No attenuation or motion correction applied Summed Stress Score: 9 Summed Rest Score: 10 Summed Difference Score: 2 PERFUSION FINDINGS Medium sized perfusion abnormality of moderate severity of entire inferior, mid septal, apical septal, apical lateral and apical corey on rest and supine stress images. There is improved tracer uptake on prone stress images. FUNCTIONAL RESULTS (calculated via Gated SPECT) Stress Image LV EF (%): 35 Stress EDV (mL):108 TID: 1 Stress ESV (mL):70 FUNCTIONAL FINDINGS: The left ventricle is normal in size. Transient Ischemia Dilatation of 1. There is moderately reduced left ventricular global systolic function. The left ventricular ejection fraction is reduced with a value of 35%. There is moderately decreased wall thickening. IMPRESSIONS 1. Medium sized perfusion abnormality of moderate severity of entire inferior, mid septal, apical septal, apical lateral and apical corey with somewhat improved tracer uptake on prone images. 2. This likely represents attenuation artifact. 3. The left ventricular ejection fraction is moderately reduced with a value of 35%. 4. There is moderately decreased wall thickening. 5. No coronary ischemia based on this study. Marnie Keith MD (Electronically Signed) Final Date: 23 March 2020 22:30 S
--- NOTE | 2020-03-19 08:36 | ECG_ITS ---
[facility] Test Date: 2020-03-19 Pat Name: Chalo Hartman Department: Room: Gender: Male Clinical Sociologist: Nona Tavera : 1935 Requested By: Marnie Keith Order Number: [id number] Daysi MD: Marnie Keith M.D. Interpretive Statements NAME OF STUDY: LEXISCAN SESTAMIBI STRESS TEST INDICATION: Shortness of Breath PROCEDURE: At the baseline, the blood pressure was 156/103 mmHg, oxygen saturation 92% with a heart rate of 77 bpm. The electrocardiogram showed sinus rhythm, normal axis. Poor anterior R wave progression. Intraventricular conduction delay. The Lexiscan was infused over a period of 20 seconds. A total of 0.4 milligrams of Lexiscan was infused. The stress phase was continued for a total of 5 minutes. Heart rate at the end of the stress phase was 81 bpm, oxygen saturation 92% with a blood pressure of 159/90 mmHg. The EKG at the peak infusion revealed sinus rhythm no significant ST-T wave changes. Sestamibi was injected 20 seconds after the Lexiscan infusion. Blood pressure at the end of the recovery phase was 166/93 mmHg, oxygen saturation 92% with a heart rate of 80 beats per minute. CONCLUSION: 1. No significant EKG changes with the LexiScan infusion. 2. No LexiScan induced chest pain or cardiac arrhythmia. 3. Normal blood pressure and heart rate response. 4. Sestamibi/sestamibi perfusion scan pending; see separate report. Electronically Signed On 03-21-2020 13:34:01 SORORITY SUPERVISOR by Marnie Keith M.D. [email or web address]
[2020-03-19 10:54] VITALS: BP 158/83; PULSE 80
[2020-03-19] MEDS: regadenoson 0.4 Mg/5 ml Syringe IVP (10:54)
== END 2020-03-19 08:06 | disposition home or self-care (01) ==
PROVIDERS: PCP Nurse Practitioner Family; Visit Provider Hospitalist
DX: R06.02 Shortness of breath (principal)
CPT/HCPCS: 78452; 93017; A9500; J2785

== ENCOUNTER → 2020-04-10 15:54 | Outpatient (BNVA) | payer MEDICARE, SELFPAY | PROVIDERS: PCP Nurse Practitioner Family; Visit Provider Internal Medicine Cardiovascular Disease | DX: R06.02 Shortness of breath (principal); I42.9 Cardiomyopathy, unspecified; I48.91 Unspecified atrial fibrillation; I10 Essential (primary) hypertension; I27.20 Pulmonary hypertension, unspecified; E11.9 Type 2 diabetes mellitus without complications | CPT/HCPCS: 80048; 83735; 83880 ==

== ENCOUNTER 2020-04-28 14:49 | Outpatient (CLI) | payer MEDICARE, SELFPAY ==
--- NOTE | 2020-04-28 15:00 | USCV_ITS ---
Chaol Hartman Age: 84 Gender: M : 1935 Exam Date: 04/28/2020 15:08 Ordering Phys: Marnie Keith MD ([email or web address]) Technologist: Yovany Lopez Exam Location: [facility] [place] Indication: CHEST PAIN BP: 132 / 76 HR: 70 Rhythm: Sinus Technical Quality: Good MEASUREMENTS (Male / Female) Normal Values 2D ECHO LV Diastolic Diameter PLAX 3.9 cm 4.2 - 5.9 / 3.9 - 5.3 cm LV Systolic Diameter PLAX 2.8 cm IVS Diastolic Thickness 1.2 cm 0.6 - 1.0 / 0.6 - 0.9 cm IVS Systolic Thickness 1.7 cm LVPW Diastolic Thickness 1.3 cm 0.6 - 1.0 / 0.6 - 0.9 cm LVPW Systolic Thickness 1.9 cm LVOT Diameter 2.0 cm LV Ejection Fraction 2D Teich 55.2 % LV Ejection Fraction MOD 2C 72.4 % LV Ejection Fraction 2C AL 73.7 % LA Diameter 4.7 cm LA Width 4.8 cm LA Height 6.9 cm RA Width 5.5 cm RA Height 3.3 cm Aorta at Sinotubular Diameter 3.1 cm M-MODE LV Diastolic Diameter MM 6.0 cm 4.2 - 5.9 / 3.9 - 5.3 cm LV Systolic Diameter MM 4.0 cm LV Ejection Fraction MM Teich 62.5 % IVS Diastolic Thickness MM 0.8 cm 0.6 - 1.0 / 0.6 - 0.9 cm IVS Systolic Thickness MM 1.7 cm LVPW Diastolic Thickness MM 1.1 cm 0.6 - 1.0 / 0.6 - 0.9 cm LVPW Systolic Thickness MM 1.5 cm RV Diastolic Diameter MM 1.0 cm Aortic Annulus Diameter 3.7 cm LA Ao Ratio MM 1.3 MV E Point Septal Separation 1.4 cm DOPPLER AV Peak Velocity 111.0 cm/s LVOT Peak Velocity 63.0 cm/s AV Area Cont Eq vti 1.9 cm squared AV Area Cont Eq pk 1.8 cm squared MV Area PHT 5.4 cm squared Mitral E to A Ratio 3.5 MV E' Velocity 47.5 cm/s Mitral E to MV E' Ratio 15.3 Mitral E to LV E' Lateral Ratio 11.2 Mitral E to LV E' Septal Ratio 24.9 TR Peak Velocity 187.3 cm/s TR Peak Gradient 14.0 mmHg TV Peak E Velocity 83.0 cm/s Right Atrial Pressure 3.0 mmHg Pulmonary Artery Systolic Pressu 17.0 mmHg FINDINGS Left Ventricle Normal left ventricular cavity size. Moderate concentric left ventricular hypertrophy. Normal left ventricular systolic function. Left ventricular ejection fraction is estimated at 65 %. No regional wall motion abnormalities. Abnormal diastolic dysfunction. Right Ventricle Normal right ventricular size and systolic function. Right ventricular systolic pressure 20 mmHg. Right Atrium Normal right atrial size. Right atrial pressure estimated at 3 mm Hg. Left Atrium Mildly increased left atrial size. Mitral Valve Mild mitral annular calcification. Moderately thickened mitral valve. No mitral valve stenosis. Mild mitral valve regurgitation. Aortic Valve Structurally normal trileaflet aortic valve. No aortic valve stenosis. Mild aortic valve regurgitation. Tricuspid Valve Structurally normal tricuspid valve. No tricuspid valve stenosis. Mild tricuspid valve regurgitation. Pulmonic Valve Structurally normal pulmonic valve. No pulmonary valve stenosis. Mild pulmonary valve regurgitation. Pericardium No pericardial effusion. Normal sized inferior vena cava. Aorta Normal size aortic root and proximal ascending aorta. CONCLUSIONS 1. Normal left ventricular cavity size and systolic function. Moderate concentric left ventricular hypertrophy. Left ventricular ejection fraction is estimated at 65 %. No regional wall motion abnormalities. Abnormal diastolic dysfunction. 2. Mildly increased left atrial size. 3. Mild aortic valve regurgitation. 4. Mild mitral and tricuspid valve regurgitation. 5. Pulmonary artery pressure estimated at 20 mm Hg. 6. When compared to previous echocardiogram dated 01/07/20, pulmonary artery pressure seems to have decreased. Marnie Keith MD (Electronically Signed) Final Date: 04 May 2020 15:02 S
== END 2020-04-28 14:50 | disposition home or self-care (01) ==
PROVIDERS: PCP Internal Medicine; Visit Provider Internal Medicine Cardiovascular Disease
DX: R06.02 Shortness of breath (principal); R07.9 Chest pain, unspecified; I35.1 Nonrheumatic aortic (valve) insufficiency; I34.0 Nonrheumatic mitral (valve) insufficiency; I07.1 Rheumatic tricuspid insufficiency
CPT/HCPCS: 93306

== ENCOUNTER 2020-09-14 17:46 | Emergency (ER) | payer MEDICARE, SELFPAY ==
[2020-09-14 17:52] VITALS: BP 127/75; PULSE 96; RESP 18; TEMP 36.6; O2SAT 96; BMI 26.4
--- NOTE | 2020-09-14 18:11 | XRR_ITS ---
PROCEDURE INFORMATION: Exam: XR Thoracic Spine Exam date and time: 09/14/2020 6:23 PM Age: 85 years old Clinical indication: Injury or trauma; Fall; Blunt trauma (contusions or hematomas); Prior surgery; Surgery date: 6+ months TECHNIQUE: Imaging protocol: XR of the thoracic spine. Views: 3 views. COMPARISON: No relevant prior studies available. FINDINGS: Bones/joints: The vertebral body alignment and stature is maintained. Diffuse thin fusing syndesmophytes throughout the thoracic spine, consistent with ankylosing spondylitis. Soft tissues: Unremarkable. Other findings: . XR/XR thoracic spine 3V* [id number] IMPRESSION: 1. No fracture or acute finding. 2. Findings consistent with ankylosing spondylitis. The
--- NOTE | 2020-09-14 18:11 | XRR_ITS ---
PROCEDURE INFORMATION: Exam: XR Lumbosacral Spine Exam date and time: 09/14/2020 6:23 PM Age: 85 years old Clinical indication: Injury or trauma; Fall; Blunt trauma (contusions or hematomas); Prior surgery; Surgery date: 6+ months TECHNIQUE: Imaging protocol: XR of the lumbosacral spine. Views: 2 or 3 views. COMPARISON: No relevant prior studies available. FINDINGS: Bones/joints: Slight rightward lumbar curvature. The vertebral body stature is maintained. Probable bony fusion of the L3 and L4 vertebral bodies. Severe disc space narrowing at L2-L3 and L4-L5 with degenerative endplate sclerosis and spurring. Bridging syndesmophytes at T11-12 and T12-L1. The facets are intact. Soft tissues: Unremarkable. Vasculature: Aortic and iliac artery calcifications. XR/XR lumbar spine 2-3V* [id number] IMPRESSION: 1. 1. No fracture or acute finding. 2. Multilevel degenerative changes, greatest at L2-L3 and L4-L5.
--- NOTE | 2020-09-14 18:12 | W.ED.FALL ---
HPI - Fall General: Chief Complaint: Fall Stated Complaint: FALL, BACK PAIN Time Seen by Provider: 09/14/20 18:04 History of Present Illness: HPI Narrative: Patient is complaining about lower thoracic lumbar pain from a fall that happened occurred on Tuesday. Patient has history of falls. Patient has been laying on couch mainly for the last few days due to the pain in his back. He says it hurts to roll over on the counter and better to set up. Denies any other injuries or problems presently. complaint: fall Onset (ago): day(s) Fall from: standing Fall witnessed: yes, by family Place fall occurred: home Loss of consciousness: None Prolonged down time: no Symptoms prior to fall: none Context: history of frequent falls Location of injury: back Severity: mild Quality: aching Associated symptoms-after fall: Reports no associated symptoms; Denies abdominal pain, chest pain or headache(s) Review of Systems Const: Denies: fever(s), chills or body aches Eyes: Denies: change in vision or blurry vision ENMT: Denies: throat pain or nasal congestion Card: Denies: chest pain or dyspnea on exertion Resp: Denies: dyspnea, productive cough or non-productive cough GI: Denies: abdominal pain, nausea or vomiting : Denies: difficulty urinating Musc: Reports: back pain; Denies: extremity pain Skin/Breast: Denies: rash Neuro: Denies: headache(s) Psych: Denies: anxiety or depression Leo/Lymph: Denies: easy bruising PFSH ED PFSH: Medical History Chronic prostatitis Diabetes mellitus patient does not endorse this diagnosis today but has high blood sugar Family history of prostate cancer Hypertension Osteoarthritis Surgical History H/O arthroscopy of right knee History of back surgery Family History Mother , at age 81 Cancer lung Father , at age 82 Cancer prostate Social History Smoking and tobacco status: never smoked Second hand smoke exposure: No Alcohol intake: never Lives independently: Yes Household members: spouse Marital status: Current occupational status: retired History of recent travel: No Current gender identity: Male Physical Exam Const: COMMON NORMALS: no acute distress, average body habitus and patient oriented x3 HENMT: COMMON NORMALS: normocephalic HEAD & SCALP: normal to inspection and normocephalic FACE & SINUS: normal facial exam Eye: COMMON NORMALS: conjunctivae normal GENERAL EYE: appearance normal, both eyes and all related structures CONJUNCTIVA: Yes conjunctivae normal Neck/C-Spine: COMMON NORMALS: no JVD Chest: COMMONS NORMALS: normal inspection of the chest Resp: COMMON NORMALS: normal respiratory effort Cardio: COMMON NORMALS: no JVD GI: COMMON NORMALS: Normal to inspection, nondistended, normoactive bowel sounds present Back/Pelvis: THORACIC SPINE/UPPER BACK: Yes thoracic spinal tenderness T-spine tenderness location: T12 LUMBAR SPINE/LOWER BACK: Yes lumbar spinal tenderness Lumbar spinal tenderness location: L1 and L2 (Abrasion noted in this area scar also from previous back surgery) Extremity: COMMON NORMALS: normal to inspection and full ROM Neuro: COMMON NORMALS: patient oriented x3 Course Vital Signs: Vital signs: Vital Signs Temperature 97.8 F 09/14/20 17:52 Pulse Rate 96 09/14/20 17:52 Respiratory Rate 18 09/14/20 17:52 Blood Pressure 127/75 09/14/20 17:52 Pulse Oximetry 96 09/14/20 17:52 Discharge Plan Discharge Prescriptions: No Action Zyrtec 10 mg capsule 10 mg PO DAILY RF: 0 tramadol 50 mg tablet 50 mg PO BID PRN (Reason: Pain) RF: 0 cholecalciferol (vitamin D3) 1,250 mcg (50,000 unit) capsule PO RF: 0 atenolol 50 mg tablet 50 mg PO DAILY RF: 0 lisinopril 20 mg tablet 20 mg PO BID RF: 0 furosemide 20 mg tablet 20 mg PO DAILY Qty: 30 RF: 4 Neurontin 300 mg capsule 300 mg PO BID RF: 0 sertraline 25 mg tablet 25 mg PO DAILY@18 RF: 0 Coding Level of Care Code ED Medical Customer Service Representative for Maverick Butler
[2020-09-14 19:19] VITALS: BP 135/72; PULSE 85; RESP 20; O2SAT 97
[2020-09-14] MEDS: CELEcoxib 200 mg Capsule 400 MG PO (19:42)
== END 2020-09-14 19:49 | disposition home or self-care (01) ==
PROVIDERS: Emergency Provider Nurse Practitioner Family; PCP Internal Medicine
DX: E11.9 Type 2 diabetes mellitus without complications (principal); I10 Essential (primary) hypertension
CPT/HCPCS: 72072; 72100; 99283

== ENCOUNTER 2020-09-26 12:21 | Outpatient (CLI) | payer MEDICARE, SELFPAY ==
--- NOTE | 2020-09-26 13:00 | MR_ITS ---
WS: [id number] MRI LUMBAR SPINE NONCONTRAST TECHNIQUE: Sagittal T1, T2 and STIR imaging. Axial T1 and T2 imaging. CLINICAL INFORMATION: M54.5 - Low back pain COMPARISON: None. FINDINGS: Mild lumbar curve. No acute compression. Prior postoperative changes laminectomy defects with dorsal lateral bony fusion. L1-L2: Mild disc bulging with osteophytic ridging. Narrowing of the right subarticular recess. Modera te facet arthropathy. Mild right foraminal narrowing. L2-L3: Mild disc bulging and osteophytic ridging. Postoperative changes dorsal elements. Mild central canal stenosis. Moderate to advanced facet arthropathy. Mild left greater than right foraminal narro wing. L3-L4: Disc osteophyte complex with endplate ridging. Impingement traversing right L4 nerve root. Mod erate facet arthropathy. Mild central canal stenosis. Mild bilateral foraminal narrowing. L4-L5: Mild disc bulging with osteophytic ridging. Laminectomy defects. Mild central canal stenosis. Moderate facet arthropathy. Moderate left and mild right foraminal narrowing. Impingement traversing L5 nerve roots. L5-S1: Mild disc bulging with osteophytic ridging. Tiny central disc osteophyte protrusion. Contact o f the traversing S1 nerve roots left greater than right. Moderate facet arthropathy. Mild left forami nal narrowing. Visualized pelvic bony structures: Normal. Paravertebral soft tissues: Normal. Mild central canal stenosis in the cervical spine spa attendant imaging C2-C3 C3-C4 and C4-C5. MR/MR lumbar spine wo con* [id number] IMPRESSION: 1. Mild lumbar curve. No acute compression. Laminectomy defects with dorsolate ral fusion L2-L4. 2. Mild to moderate residual central canal stenosis L2-L3 and L4-L5. Mild cent ral canal stenosis L3-4. 3. Impingement on the traversing right L4 nerve root at the L3-4 level. 4. Impingement traversing L5 nerve roots at L4-5. 5. Mild to moderate bony foraminal narrowing worse at right L1-2, left L3-4, a nd left L4-5. 6. Small central disc protrusion L5-S1 with slight impingement traversing S1 n erve roots. 7. Moderate to advanced facet arthropathy worse at L2-L4.
== END 2020-09-26 12:22 | disposition home or self-care (01) ==
PROVIDERS: PCP Nurse Practitioner Family; Visit Provider Nurse Practitioner Family
DX: M54.5 Low back pain (principal); M46.96 Unspecified inflammatory spondylopathy, lumbar region
CPT/HCPCS: 72148

== ENCOUNTER → 2020-10-30 10:04 | Outpatient (BNVA) | payer MEDICARE, SELFPAY | PROVIDERS: PCP Internal Medicine; Visit Provider Urology | DX: N41.1 Chronic prostatitis (principal); N40.1 Benign prostatic hyperplasia with lower urinary tract symptoms; Z80.42 Family history of malignant neoplasm of prostate; Z12.5 Encounter for screening for malignant neoplasm of prostate | CPT/HCPCS: 81003; G0103 ==

== ENCOUNTER → 2021-01-01 10:25 | Outpatient (BNVA) | payer MEDICARE, SELFPAY | PROVIDERS: PCP Internal Medicine; Visit Provider Urology | DX: N40.1 Benign prostatic hyperplasia with lower urinary tract symptoms (principal) | CPT/HCPCS: 81003 ==

== ENCOUNTER 2021-02-22 12:37 | Emergency (ER) | payer MEDICARE, SELFPAY ==
[2021-02-22 13:31] VITALS: BP 99/61; PULSE 114; RESP 18; TEMP 36.9; O2SAT 97; BMI 27.1
--- NOTE | 2021-02-22 14:03 | CTR_ITS ---
PROCEDURE INFORMATION: Exam: CT Head Without Contrast Exam date and time: 02/22/2021 2:03 PM Age: 85 years old Clinical indication: Injury or trauma; Blunt trauma (contusions or hematomas); Patient HX: Confusion since fall 10-15; Additional info: Head injury, fall TECHNIQUE: Imaging protocol: Computed tomography of the head without contrast. Radiation optimization: All CT scans at this facility use at least one of these dose optimization techniques: automated exposure control; mA and/or kV adjustment per patient size (includes targeted exams where dose is matched to clinical indication); or iterative reconstruction. COMPARISON: No relevant prior studies available. RADIATION DOSE METRICS: Total DLP (mGy-cm): 975.86 FINDINGS: Brain: No hemorrhage. Mild diffuse cerebral atrophy. No mass effect. Cerebral ventricles: No ventriculomegaly. Paranasal sinuses: Visualized sinuses are unremarkable. No fluid levels. Mastoid air cells: Visualized mastoid air cells are well aerated. Bones/joints: Unremarkable. No acute fracture. Soft tissues: Unremarkable. CT/CT head wo con* [id number] IMPRESSION: No acute intracranial abnormality. Radiation Dose CTDIVOL = (mGy): DLP = 975.86 (mGy-cm)
--- NOTE | 2021-02-22 14:03 | XRR_ITS ---
PROCEDURE INFORMATION: Exam: XR Right Forearm Exam date and time: 02/22/2021 2:03 PM Age: 85 years old Clinical indication: Injury or trauma; Fall; Blunt trauma (contusions or hematomas); Arm, lower; Right TECHNIQUE: Imaging protocol: XR Right forearm. Views: 2 views. COMPARISON: No relevant prior studies available. FINDINGS: Bones/joints: No evidence of fracture. Soft tissues: Normal. XR/XR forearm RT 2V [id number] IMPRESSION: No acute findings. Radiation Dose CTDIVOL = (mGy): DLP = (mGy-cm)
--- NOTE | 2021-02-22 14:41 | W.ED.EXTPRO ---
HPI - Extremity Problem General: Chief complaint: Extremity Injury, Upper Stated complaint: FALL/WOUND COMPLICATIONS Time Seen by Provider: 02/22/21 14:41 History of Present Illness: HPI Narrative: 85-year-old male patient comes in today with complaints of injury sustained from a fall on Tuesday. Patient has some skin tears to the right forearm, and abrasion to the right parietal scalp. Patient reports that he had stumbled and fell on Tuesday. Patient and spouse denied any loss of consciousness. Spouse did state they seem kind of confused after the injury but returned to normal shortly after incident. Patient does have a history of diabetes and dementia, neuropathy, hypertension, cardiomyopathy with pulmonary hypertension. Review of Systems General: Reports: 10 or more systems reviewed and unremarkable except in HPI and below Skin/Breast: Reports: other (Multiple abrasions) Neuro: Reports: other (Head injury) PFS ED PFSH: Medical History BPH loc w urin obs/LUTS Chronic prostatitis Diabetes mellitus patient does not endorse this diagnosis today but has high blood sugar Family history of prostate cancer Hypertension Osteoarthritis Surgical History H/O arthroscopy of right knee History of back surgery Family History Mother , at age 81 Cancer lung Father , at age 82 Cancer prostate Social History Second hand smoke exposure: No Alcohol intake: never Lives independently: Yes Household members: spouse Marital status: Current occupational status: retired History of recent travel: No Current gender identity: Male Physical Exam Const: COMMON NORMALS: no acute distress and patient oriented x3 GENERAL APPEARANCE: cooperative HENMT: COMMON NORMALS: normocephalic, TM's normal bilaterally and Normal external nose present HEAD & SCALP: normal to inspection and normocephalic NOSE: Normal external nose present TYMPANIC MEMBRANE: TM's normal bilaterally MOUTH: Normal oral and palatal mucosa present THROAT: posterior oropharynx normal Eye: GENERAL EYE: appearance normal, both eyes and all related structures Neck/C-Spine: COMMON NORMALS: full ROM Lymph: LYMPHATIC: no lymphadenopathy noted Chest: COMMONS NORMALS: normal inspection of the chest Resp: COMMON NORMALS: normal respiratory effort EFFORT & INSPECTION: Yes able to speak in complete sentences Cardio: COMMON NORMALS: regular rate and regular rhythm RATE: regular rate RHYTHM: regular rhythm GI: COMMON NORMALS: non-tender : COMMON NORMALS: Yes no CVA tenderness BLADDER/KIDNEY EXAM: Yes no CVA tenderness Back/Pelvis: COMMON NORMALS: no CVA tenderness and thoracic and lumbar spine normal to inspection Extremity: COMMON NORMALS: normal to inspection Neuro: COMMON NORMALS: patient oriented x3 and moves all extremities Psych: COMMON NORMALS: mental status grossly normal and cooperative Skin: COMMON NORMALS: no rashes or lesions noted GENERAL SKIN EXAM: no rashes or lesions noted Course Vital Signs: Vital signs: Vital Signs Temperature 98.5 F 02/22/21 13:31 Pulse Rate 114 H 02/22/21 13:31 Respiratory Rate 18 02/22/21 13:31 Blood Pressure 99/61 02/22/21 13:31 Pulse Oximetry 97 02/22/21 13:31 MDM - Extremity (Nontraumatic) MDM Narrative: Medical decision making narrative: Patient was brought in due to a fall from Tuesday. At that time patient did have a head injury with some confusion that resolved shortly after injury. Spouse was concerned about patient's abrasions to his forearm due to his problems with diabetes. On exam patient has some skin tears and abrasions to the right forearm and to the right parietal scalp. No focal neural deficits were noted. Pupils are equal and reactive. No obvious deformity was noted to the forearm. Differential diagnosis includes but not limited to intracranial bleeding, fracture, abrasion, need for prophylaxis antibiotic. CT of the head indicated no intracranial bleeding or fracture. X-ray of the forearm was negative for any fracture. Wounds were cleaned and appeared to be healing well. Reviewed recommendations for treatment of wound with need for follow-up. Patient and family both reported understanding. I did place the patient on some cephalexin 500 mg twice a day for 7 days due to patient's history of diabetes and risk for infection. Discharge Plan Discharge Patient Disposition: Home Clinical Impression: Fall Qualifiers: Encounter type: initial encounter Qualified Code(s): W19.XXXA - Unspecified fall, initial encounter Head injury Qualifiers: Encounter type: initial encounter Qualified Code(s): S09.90XA - Unspecified injury of head, initial encounter Abrasion forearm Qualifiers: Encounter type: initial encounter Laterality: right Qualified Code(s): S50.811A - Abrasion of right forearm, initial encounter Condition: Stable Prescriptions: New cephalexin 500 mg capsule 500 mg PO BID 7 Days Qty: 14 RF: 0 No Action Zyrtec 10 mg capsule 10 mg PO DAILY RF: 0 tramadol 50 mg tablet 50 mg PO BID PRN (Reason: Pain) RF: 0 cholecalciferol (vitamin D3) 1,250 mcg (50,000 unit) capsule PO RF: 0 memantine 5 mg tablet 5 mg PO BID RF: 0 meloxicam [Mobic] 15 mg tablet 15 mg PO DAILY RF: 0 mupirocin 2 % ointment 1 applic topical BID RF: 0 simvastatin 20 mg tablet 20 mg PO DAILY RF: 0 tamsulosin 0.4 mg capsule 0.4 mg PO DAILY Qty: 90 RF: 3 lisinopril 20 mg tablet 20 mg PO BID RF: 0 furosemide 20 mg tablet 20 mg PO DAILY Qty: 90 RF: 1 carvedilol 12.5 mg tablet 12.5 mg PO BID Qty: 180 RF: 2 ciprofloxacin HCl 500 mg tablet 500 mg PO BID Qty: 60 RF: 1 Neurontin 300 mg capsule 600 mg PO BID RF: 0 sertraline 25 mg tablet 50 mg PO DAILY@18 RF: 0 Discharge Orders: Discharge ED (Routine); Ordered 02/22/21 Ordered By: Martin Flores Referrals: Pamela Aguila MD [Primary Care Provider] - Discharge Diet: Usual diet Discharge Activity: Increase activity as tolerated Patient Instructions: Abrasion (ED), Opioid Safety Activity Restrictions/Additional Instructions: Clean wound gently with mild soap and water daily. Apply Vaseline or antibiotic ointment of choice. Use a nonstick dressing to cover the wound. Follow-up with primary care in 3 days for wound recheck. Return to the ER for new concerns. Coding Level of Care Code ED Consulting Solution Director for Maverick Butler Exam Comprehensive
== END 2021-02-22 16:20 | disposition home or self-care (01) ==
PROVIDERS: Emergency Provider Nurse Practitioner Family; PCP Internal Medicine
DX: S50.811A Abrasion of right forearm, initial encounter (principal); S09.90XA Unspecified injury of head, initial encounter; E11.9 Type 2 diabetes mellitus without complications; I10 Essential (primary) hypertension; W01.0XXA Fall on same level from slipping, tripping and stumbling without subsequent striking against object, initial encounter
CPT/HCPCS: 70450; 73090; 99282

== ENCOUNTER 2021-07-30 15:03 | Emergency (ER) | payer MEDICARE, SELFPAY ==
[2021-07-30] VITALS (8 sets, daily range): BP systolic 109–146; BP diastolic 68–98; PULSE 103–131; RESP 18; TEMP 20.2–37; O2SAT 96–100; BMI 26.6
--- NOTE | 2021-07-30 15:35 | ECG_ITS ---
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 Measurements Intervals [place] Rate: 129 P: 248 NV: 155 QRS: -31 QRSD: 129 T: 76 QT: 324 QTc: 476 Interpretive Statements ECTOPIC ATRIAL TACHYCARDIA LEFT AXIS DEVIATION [QRS AXIS < -30] MODERATE INTRAVENTRICULAR CONDUCTION DELAY [110+ ms QRS DURATION] Compared to ECG 11/16/2019 20:14:49 Left-axis deviation now present T-wave abnormality now present Sinus rhythm no longer present Prolonged QT interval no longer present Electronically Signed On 07-30-2021 17:52:55 CDT by Arun Washington M.D. [id number]
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
--- NOTE | 2021-07-30 16:08 | XRR_ITS ---
PROCEDURE INFORMATION: Exam: XR Chest Exam date and time: 07/30/2021 4:20 PM Age: 86 years old Clinical indication: Shortness of breath; Additional info: [address] TECHNIQUE: Imaging protocol: XR of the chest. Views: 1 view. COMPARISON: CR XR chest 1V portable [id number] 11/18/2019 7:49 AM FINDINGS: Lungs: Unremarkable. No consolidation. Pleural spaces: Unremarkable. No pleural effusion. No pneumothorax. Heart/Mediastinum: Unremarkable. No cardiomegaly. Bones/joints: Unremarkable. XR/XR chest 1V portable [id number] IMPRESSION: No acute findings.
[2021-07-30] MEDS: neomycin-poly-bacitracin oint 0.9 gm Pkt 1 APPLIC TOPICAL (16:19)
[2021-07-30 16:47] LABS: Basophils % 0.5 %; Eosinophils # 0.2 10^3/uL (0.0-0.8); Eosinophils % 2.6 %; Hematocrit 39.5 % (42.0-52.0); Hemoglobin 13.5 g/dL (11.7-16.6); Lymphocytes # 1.5 10^3/uL (0.8-4.8); Lymphocytes % 18.8 %; Mean Corpuscular HGB Conc 34.2 g/dL (30.0-36.0); Mean Corpuscular Hemoglobin 32.4 pg (28.0-34.0); Mean Corpuscular Volume 94.7 fl (80-94); Monocytes # 0.8 10^3/uL (0.2-0.9); Monocytes % 9.7 %; Neutrophils # 5.26 10^3/uL (1.8-7.7); Neutrophils % 68.1 %; Nucleated Red Blood Cells % 0 %; Platelet Count 191 10^3/cmm (130-400); Red Blood Count 4.17 10^6/uL (4.1-5.3); Red Cell Distribution Width 14.7 % (12.1-15.1); White Blood Count 7.7 10^3/uL (4.0-10.0)
[2021-07-30] MEDS: sodium chloride 0.9% 500 ML 999 ML IV ×2 (16:59→18:51)
[2021-07-30 17:14] LABS: Troponin(5th) Baseline 79 ng/L (0-15)
[2021-07-30 17:23] LABS: NT Pro B Type Natriuretic Pept 1750 pg/mL (0-450)
[2021-07-30 18:11] LABS: Anion Gap 22.2 (5-19); Blood Urea Nitrogen 26 mg/dL (8-23); Calcium 9.7 mg/dL (8.5-10.5); Carbon Dioxide 21 mmol/L (22-29); Chloride 94 mmol/L (98-107); Glucose 149 mg/dL (65-115); Osmolality Calculated 282 mOsm/kg (285-295); Potassium 5.2 mmol/L (3.5-5.1); Sodium 132 mmol/L (136-145)
[2021-07-30 19:02] LABS: Troponin 5 2HR 83.77 ng/L (0-15); Troponin 5 2HR Delta 4.77 ABS# (0-10)
[2021-07-30] MEDS: metoprolol tartrate 25 mg Tablet 12.5 MG PO (20:02)
[2021-07-30] MEDS: apixaban 5 mg Tablet 2.5 MG PO (20:02)
--- NOTE | 2021-07-31 10:36 | DCPLANNER ---
Addendum entered by Luz Marina Rubin 08/06/21 16:04: Patient had an appointment scheduled for 08.05.21 with HYDRAULIC PRESS IN OPERATOR, Josselyn Covarrubias - patient attended appointment. Addendum entered by Luz Marina Rubin 08/04/21 13:36: Patient has a follow up appointment scheduled for Tuesday, August 10, 2021 at 10:15 with Josselyn. manager cafe called phone number [phone], unable to speak with patient, a voicemail was left for patient to return business case analyst phone call. manager cafe also called phone number [phone], unable to speak with patient and unable to leave a voicemail for patient. Original Note: manager cafe had message to schedule a follow up appointment for patient with [facility]. manager cafe sent patients information to [facility] thru [employer] system. Patients information will be printed and reviewed. Clinic will inform caser in of the scheduled appointment. manager cafe will call patient with appointment information.
== END 2021-07-30 20:24 | disposition home or self-care (01) ==
PROVIDERS: Nurse Practitioner Family; Emergency Provider Emergency Medicine; PCP Internal Medicine
DX: T25.031A Burn of unspecified degree of right toe(s) (nail), initial encounter (principal); X03.8XXA Other exposure to controlled fire, not in building or structure, initial encounter; E86.0 Dehydration; I48.91 Unspecified atrial fibrillation; R79.89 Other specified abnormal findings of blood chemistry; E11.9 Type 2 diabetes mellitus without complications; I10 Essential (primary) hypertension
CPT/HCPCS: 71045; 80048; 83880; 84443; 84484; 85025; 93005; 99284; J7040

== ENCOUNTER → 2021-08-04 13:15 | Outpatient (BNVA) | payer MEDICARE, SELFPAY | PROVIDERS: PCP Internal Medicine; Visit Provider Emergency Medicine | DX: E11.621 Type 2 diabetes mellitus with foot ulcer (principal); I96 Gangrene, not elsewhere classified; L97.511 Non-pressure chronic ulcer of other part of right foot limited to breakdown of skin | CPT/HCPCS: 11042; 99202; 99213 ==

== ENCOUNTER → 2021-08-05 10:00 | Outpatient (BNVA) | payer MEDICARE, SELFPAY | PROVIDERS: PCP Internal Medicine; Visit Provider Nurse Practitioner Family | DX: I47.1 Supraventricular tachycardia (principal); I42.9 Cardiomyopathy, unspecified; I10 Essential (primary) hypertension | CPT/HCPCS: 99214 ==

== ENCOUNTER → 2021-08-11 14:02 | Outpatient (BNVA) | payer MEDICARE, SELFPAY | PROVIDERS: PCP Internal Medicine; Visit Provider Emergency Medicine | DX: E11.621 Type 2 diabetes mellitus with foot ulcer (principal); I96 Gangrene, not elsewhere classified; L97.511 Non-pressure chronic ulcer of other part of right foot limited to breakdown of skin | CPT/HCPCS: 11042 ==

== ENCOUNTER → 2021-08-25 13:06 | Outpatient (BNVA) | payer MEDICARE, SELFPAY | PROVIDERS: PCP Internal Medicine; Visit Provider Emergency Medicine | DX: E11.621 Type 2 diabetes mellitus with foot ulcer (principal); I96 Gangrene, not elsewhere classified; L97.511 Non-pressure chronic ulcer of other part of right foot limited to breakdown of skin | CPT/HCPCS: 11042 ==

== ENCOUNTER → 2021-08-28 10:24 | Outpatient (BNVA) | payer MEDICARE, SELFPAY | PROVIDERS: PCP Internal Medicine; Visit Provider Nurse Practitioner Family | DX: I47.1 Supraventricular tachycardia (principal); I10 Essential (primary) hypertension | CPT/HCPCS: 99213; 99214 ==

== ENCOUNTER → 2021-09-01 13:57 | Outpatient (BNVA) | payer MEDICARE, SELFPAY | PROVIDERS: PCP Internal Medicine; Visit Provider Emergency Medicine | DX: E11.621 Type 2 diabetes mellitus with foot ulcer (principal); L97.511 Non-pressure chronic ulcer of other part of right foot limited to breakdown of skin; I96 Gangrene, not elsewhere classified | CPT/HCPCS: 11043 ==

== ENCOUNTER 2021-09-02 08:47 | Outpatient (CLI) | payer MEDICARE, SELFPAY ==
--- NOTE | 2021-09-02 09:31 | USCV_ITS ---
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 Possible mild peripheral artery disease on the left side. Possible occlusion of the dorsalis pedis artery on the left side. No previous studies available for comparison. Corrected copy of the study from 09/01/2020 Dr Skinny Rose MD [facility] (Electronically Signed) Final Date: 06 Sep 2021 21:20 Amended: 15 Sep 2021 15:09 C
== END 2021-09-02 08:48 | disposition home or self-care (01) ==
LOC: RAD 08:51
PROVIDERS: PCP Internal Medicine; Visit Provider Emergency Medicine
DX: I73.9 Peripheral vascular disease, unspecified (principal)
CPT/HCPCS: 93923

== ENCOUNTER → 2021-09-10 14:08 | Outpatient (BNVA) | payer MEDICARE, SELFPAY | PROVIDERS: PCP Internal Medicine; Visit Provider Nurse Practitioner Family | DX: E11.621 Type 2 diabetes mellitus with foot ulcer (principal); L97.511 Non-pressure chronic ulcer of other part of right foot limited to breakdown of skin; I96 Gangrene, not elsewhere classified | CPT/HCPCS: 11042 ==

== ENCOUNTER → 2021-09-15 14:06 | Outpatient (BNVA) | payer MEDICARE, SELFPAY | PROVIDERS: PCP Internal Medicine; Visit Provider Emergency Medicine | DX: E11.621 Type 2 diabetes mellitus with foot ulcer (principal); L97.511 Non-pressure chronic ulcer of other part of right foot limited to breakdown of skin; I96 Gangrene, not elsewhere classified | CPT/HCPCS: 11042 ==

== ENCOUNTER 2021-09-20 20:53 | Inpatient (IN) | payer MEDICARE, SELFPAY ==
[2021-09-20] VITALS (7 sets, daily range): BP systolic 142–173; BP diastolic 90–107; PULSE 91–109; RESP 14–24; TEMP 36.4; O2SAT 93–98
--- NOTE | 2021-09-20 21:06 | ECG_ITS ---
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 Measurements Intervals [place] Rate: 105 P: CO: QRS: -45 QRSD: 127 T: 76 QT: 361 QTc: 478 Interpretive Statements ATRIAL FIBRILLATION WITH RAPID VENTRICULAR RESPONSE LEFT ANTERIOR FASCICULAR BLOCK [QRS AXIS <= -45, QR IN I, RS IN II] POSSIBLE ANTERIOR MYOCARDIAL INFARCTION , OF INDETERMINATE AGE IVCD Compared to ECG 07/30/2021 15:44:43 Left anterior fascicular block now present Myocardial infarct finding now present Left-axis deviation no longer present Intraventricular conduction delay no longer present Electronically Signed On 09-21-2021 21:00:02 CDT by Marnie Keith M.D. [id number]
--- NOTE | 2021-09-20 21:06 | XRR_ITS ---
PROCEDURE INFORMATION: Exam: XR Chest Exam date and time: 09/20/2021 9:48 PM Age: 86 years old Clinical indication: Pain; Chest pressure; Additional info: Chest pain TECHNIQUE: Imaging protocol: XR of the chest. Views: 1 view. COMPARISON: CR XR chest 1V portable [id number] 07/30/2021 4:20 PM FINDINGS: Lungs: Unremarkable. No consolidation. Pleural spaces: Unremarkable. No pleural effusion. No pneumothorax. Heart/Mediastinum: Unremarkable. No cardiomegaly. Bones/joints: Chronic degenerative change in the right shoulder. Chronic widening of the left AC joint. XR/XR chest 1V portable [id number] IMPRESSION: No change, lungs clear
[2021-09-20 21:27] LABS: Basophils % 0.2 %; Eosinophils % 0.1 %; Hematocrit 49.1 % (42.0-52.0); Hemoglobin 16.4 g/dL (11.7-16.6); Lymphocytes # 0.8 10^3/uL (0.8-4.8); Lymphocytes % 3.7 %; Mean Corpuscular HGB Conc 33.4 g/dL (30.0-36.0); Mean Corpuscular Hemoglobin 32.3 pg (28.0-34.0); Mean Corpuscular Volume 96.7 fl (80-94); Mean Platelet Volume 9.1 fL (7.4-10.4); Monocytes # 1.2 10^3/uL (0.2-0.9); Monocytes % 5.9 %; Neutrophils % 89.4 %; Nucleated Red Blood Cells % 0 %; Platelet Count 225 10^3/cmm (130-400); Red Blood Count 5.08 10^6/uL (4.1-5.3); Red Cell Distribution Width 15.1 % (12.1-15.1)
[2021-09-20 21:46] LABS: Blood Urea Nitrogen 26 mg/dL (8-23); Calcium 10.1 mg/dL (8.5-10.5); Carbon Dioxide 24 mmol/L (22-29); Chloride 94 mmol/L (98-107); Glucose 232 mg/dL (65-115); Osmolality Calculated 286 mOsm/kg (285-295); Sodium 132 mmol/L (136-145)
[2021-09-20 21:47] LABS: Troponin(5th) Baseline 76 ng/L (0-15)
--- NOTE | 2021-09-20 22:06 | CTR_ITS ---
PROCEDURE INFORMATION: Exam: CTA Chest With Contrast Exam date and time: 09/20/2021 10:32 PM Age: 86 years old Clinical indication: Sternal or substernal pain; Abdominal pain; Prior surgery; Surgery date: 6+ months; Surgery type: Back; Patient HX: C/O chest/epigastric pain x 2-3 days w n/v; Additional info: Afib, new onset of abd pain n/v leukocytosis TECHNIQUE: Imaging protocol: Computed tomographic angiography of the chest with contrast. 3D rendering (Not supervised by radiologist): MIP and/or 3D reconstructed images were created by the technologist. Radiation optimization: All CT scans at this facility use at least one of these dose optimization techniques: automated exposure control; mA and/or kV adjustment per patient size (includes targeted exams where dose is matched to clinical indication); or iterative reconstruction. Contrast material: VISI 320; Contrast volume: 95 ml; Contrast route: INTRAVENOUS (IV); COMPARISON: CR (CHEST, ) 09/20/2021 9:48 PM RADIATION DOSE METRICS: Total DLP (mGy-cm): 2122.69 FINDINGS: Pulmonary arteries: Overall exam quality is good for evaluating the pulmonary arteries. There are no intraluminal filling defects to embolism. Aorta: Unremarkable. No aortic aneurysm. No aortic dissection. Lungs: There are a few bands of linear atelectasis in the lung bases. There is also mild interstitial edema but without pleural effusion. No pneumonia or mass. Pleural spaces: See Lungs finding. Heart: There is heavy calcified plaque in the coronary arteries. The left atrium and right atrium are both mildly dilated. Lymph nodes: Unremarkable. No enlarged lymph nodes. Bones/joints: Pannus is noted around the right sternoclavicular joint. No visible fracture and the changes are most likely degenerative in origin. Soft tissues: Unremarkable. PROCEDURE INFORMATION: Exam: CTA Abdomen and Pelvis With Contrast Exam date and time: 09/20/2021 10:32 PM Age: 86 years old Clinical indication: Sternal or substernal pain; Abdominal pain; Prior surgery; Surgery date: 6+ months; Surgery type: Back; Patient HX: C/O chest/epigastric pain x 2-3 days w n/v; Additional info: Afib, new onset of abd pain n/v leukocytosis TECHNIQUE: Imaging protocol: Computed tomographic angiography of the abdomen and pelvis with contrast material. 3D rendering (Not supervised by radiologist): MIP and/or 3D reconstructed images were created by the technologist. Radiation optimization: All CT scans at this facility use at least one of these dose optimization techniques: automated exposure control; mA and/or kV adjustment per patient size (includes targeted exams where dose is matched to clinical indication); or iterative reconstruction. Contrast material: VISI 320; Contrast volume: 95 ml; Contrast route: INTRAVENOUS (IV); COMPARISON: CR (CHEST, ) 09/20/2021 9:48 PM RADIATION DOSE METRICS: Total DLP (mGy-cm): 2122.69 FINDINGS: Aorta: No aortic aneurysm. No aortic dissection. Celiac trunk and mesenteric arteries: No occlusion or significant stenosis. Renal arteries: No occlusion or significant stenosis. Right iliac arteries: No occlusion or significant stenosis. Left iliac arteries: No occlusion or significant stenosis. Veins: Incomplete opacification of the SMV. However this could be due to the arterial phase timing of the exam. Patency of the vessel is indeterminate. Liver: No mass. Gallbladder and bile ducts: Gallstones in the gallbladder are not obstructing. Pancreas: There is fatty stranding around the head and body of the pancreas indicating acute pancreatitis. However no necrosis or pseudocyst. There is inflammation in the duodenal bulb and proximal duodenum which is most likely secondary due to adjacent pancreatitis. Spleen: Unremarkable. No splenomegaly. Adrenal glands: Unremarkable. No mass. Kidneys and ureters: Unremarkable. No solid mass. No hydronephrosis. Stomach and bowel: There are a few noninflamed diverticula in the distal colon. Appendix: No evidence of appendicitis. Intraperitoneal space: There is small ascites. Lymph nodes: Unremarkable. No enlarged lymph nodes. Urinary bladder: Unremarkable. No mass. Reproductive: Unremarkable as visualized. Bones/joints: Multilevel chronic degenerative changes in the lumbar spine. Soft tissues: See Pancreas finding. CT/CT angio chest abdomen pelvis IMPRESSION: 1. No pulmonary embolism or pneumonia. 2. Mild interstitial edema. IMPRESSION: 1. Acute pancreatitis. No necrosis or pseudocyst. Small ascites. 2. Gallstones in the gallbladder. No visible obstruction. 3. Duodenal inflammation is most likely secondary.
--- NOTE | 2021-09-20 22:12 | ED_ITS ---
Documented by User: Octavio Yanes MD 09/21/21 11:03 HPI - General Adult General: Chief complaint: Chest Pain Stated complaint: N\V Chest Pain Time Seen by Provider: 09/20/21 21:06 History of Present Illness: Patient is an 86-year-old male with a history of hypertension, diabetes who presents emergency room with 3 days of bilateral lower chest upper abdominal pain and 1 day of nausea/vomiting. Per family, patient over the last 3 days has had increasing pressure in his belly. In addition, was recently earlier today, patient had significant nausea and vom iting since waking up at 430 this morning. Patient reports mild abdominal pain. Denies any prior abdominal surgeries, fever/chills, diarrhea, melena centimeters anesthesia, complaints. Onset:3 days of abdominal pain, 1 day of N/V Duration:ongoing Location:home Severity:moderate Associated symptoms: Reports chest pain (+lower chest pain), nausea and vomi ting; Deny dyspnea, rash or palpitations Review of Systems Const: Denies: fever(s) or chills Eyes: Denies: change in vision ENMT: Denies: mouth pain Card: Reports: chest pain (+lower chest pain); Denies: palpitations Resp: Denies: dyspnea or non-productive cough GI: Reports: abdominal pain, nausea and vomiting; Denies: diarrhea : Denies: dysuria Musc: Denies: extremity pain Skin/Breast: Denies: rash or new lesions Neuro: Denies: weakness in extremities Psych: Reports: other (Normal mood) Leo/Lymph: Denies: easy bruising PFSH ED PFSH: Medical History BPH loc w urin obs/LUTS Chronic prostatitis Diabetes mellitus patient does not endorse this diagnosis today but has high blood sugar Family history of prostate cancer Hypertension Osteoarthritis Surgical History H/O arthroscopy of right knee History of back surgery Family History Mother , at age 81 Cancer lung Father , at age 82 Cancer prostate Social History Second hand smoke exposure: No Alcohol intake: never Lives independently: Yes Household members: spouse Marital status: Current occupational status: retired History of recent travel: No Current gender identity: Male Physical Exam Const: COMMON NORMALS: alert HENMT: COMMON NORMALS: atraumatic HEAD & SCALP: atraumatic MOUTH: moist mucous membranes not abnormal Eye: COMMON NORMALS: EOMs intact bilaterally and conjunctivae normal CONJUNCTIVA: Yes conjunctivae normal Neck/C-Spine: COMMON NORMALS: full ROM and supple Resp: COMMON NORMALS: normal respiratory effort and clear to auscultation bilaterally AUSCULTATION: clear to auscultation bilaterally Cardio: OTHER: +irregular irregular rhythms GI: COMMON NORMALS: Soft to palpation and non-tender PALPATION: Yes Soft to palpation OTHER: No focal TTP. NO guarding rebound, guarding, rigidity. No CVA tenderness to percussion. Neg Donis/Neg McBurney's point tenderness, no suprabupic tenderness to palpation. Extremity: COMMON NORMALS: full ROM Neuro: SENSORIUM/ORIENTATION: Yes alert MOTOR EXAM: No Abnormal motor strength present and Other motor observations present (no focal motor deficits) Psych: COMMON NORMALS: speech normal SPEECH: Yes normal speech MOOD & AFFECT: Yes euthymic mood Course Vital Signs: Vital signs: Vital Signs Temperature 97.6 F 09/20/21 21:12 Pulse Rate 114 H 09/21/21 02:15 Respiratory Rate 18 09/21/21 02:15 Blood Pressure 163/99 09/21/21 02:15 Pulse Oximetry 94 09/21/21 02:15 [facility] - General Adult Medical Decision Making 86-year-old male with history of diabetes, hypertension, fibrillation not on anticoagulation presenting to the emergency room for concerns of upper abdominal/lower chest pain. On physical exam, patient is afebrile. Abdominal exam benign. Patient is noted to have white count 20.1K. CT abdomen pelvis pending at this time. S/p IVF and zofran. Troponin of 76, Cr of 1.4 similar to baseline. Case signed out to Dr. Hoff. Lab Data : 09/20/21 21:10 09/20/21 21:10 Radiology Impressions Chest X-Ray 09/20/21 21:06 IMPRESSION: No change, lungs clear Chest/Abdomen/Pelvis CTA 09/20/21 22:06 IMPRESSION: 1. No pulmonary embolism or pneumonia. 2. Mild interstitial edema. IMPRESSION: 1. Acute pancreatitis. No necrosis or pseudocyst. Small ascites. 2. Gallstones in the gallbladder. No visible obstruction. 3. Duodenal inflammation is most likely secondary. Gallbladder Ultrasound 09/21/21 00:05 IMPRESSION: 1. Mildly dilated common bile duct. Distal obstruction such as common bile duct stone not excluded. 2. Cholelithiasis. No convincing ultrasound evidence of acute cholecystitis. Cholangiopancreatography MRI 09/21/21 01:17 IMPRESSION: 1. Inflammatory changes and fluid signal intensity is seen surrounding the pancreas, adjacent to the proximal duodenum, within Gerota's fascia bilaterally and extending into the left pericolic gutter, findings compatible with acute pancreatitis. 2. Gallstones without evidence for cholecystitis. The common bile duct is normal in caliber. Laboratory Results WBC 21.0 10^3/uL (4.0-10.0) H 09/20/21 21:10 RBC 5.08 10^6/uL (4.1-5.3) 09/20/21 21:10 Hgb 16.4 g/dL (11.7-16.6) 09/20/21 21:10 Hct 49.1 % (42.0-52.0) 09/20/21 21:10 MCV 96.7 fl (80-94) H 09/20/21 21:10 MCH 32.3 pg (28.0-34.0) 09/20/21 21:10 MCHC 33.4 g/dL (30.0-36.0) 09/20/21 21:10 RDW 15.1 % (12.1-15.1) 09/20/21 21:10 Plt Count 225 10^3/cmm (130-400) 09/20/21 21:10 MPV 9.1 fL (7.4-10.4) 09/20/21 21:10 Neut % (Auto) 89.4 % 09/20/21 21:10 Lymph % (Auto) 3.7 % 09/20/21 21:10 [place] % (Auto) 5.9 % 09/20/21 21:10 Eos % (Auto) 0.1 % 09/20/21 21:10 Baso % (Auto) 0.2 % 09/20/21 21:10 Neut # (Auto) 18.80 10^3/uL (1.8-7.7) H 09/20/21 21:10 Lymph # (Auto) 0.8 10^3/uL (0.8-4.8) 09/20/21 21:10 [place] # (Auto) 1.2 10^3/uL (0.2-0.9) H 09/20/21 21:10 Eos # (Auto) 0.0 10^3/uL (0.0-0.8) 09/20/21 21:10 Baso # (Auto) 0.0 10^3/uL (0.0-0.1) 09/20/21 21:10 Nucleated RBC % (auto) 0 % 09/20/21 21:10 Nucleated RBCs # 0.0 /100WBC 09/20/21 21:10 PT 14.70 SECONDS (12.1-14.9) 09/21/21 00:10 INR 1.11 (0.8-1.2) 09/21/21 00:10 Sodium 132 mmol/L (136-145) L 09/20/21 21:10 Potassium 5.0 mmol/L (3.5-5.1) 09/20/21 21:10 Chloride 94 mmol/L (98-107) L 09/20/21 21:10 Carbon Dioxide 24 mmol/L (22-29) 09/20/21 21:10 Anion Gap 19.0 (5-19) 09/20/21 21:10 BUN 26 mg/dL (8-23) H 09/20/21 21:10 Creatinine 1.4 mg/dL (0.7-1.2) H 09/20/21 21:10 GFR Calculation Not Reportable 09/20/21 21:10 Glucose 232 mg/dL (65-115) H 09/20/21 21:10 Calculated Osmolality 286 mOsm/kg (285-295) 09/20/21 21:10 Calcium 10.1 mg/dL (8.5-10.5) 09/20/21 21:10 Total Bilirubin 3.1 mg/dL (0.15-1.2) H 09/20/21 23:06 Direct Bilirubin 2.30 mg/dL (0.00-0.30) H 09/20/21 23:06 AST 155 U/L (0-40) H 09/20/21 23:06 ALT 118 U/L (0-41) H 09/20/21 23:06 Alkaline Phosphatase 147 IU/L (40-130) H 09/20/21 23:06 Lactate Dehydrogenase 330 U/L (135-225) H 09/20/21 23:06 Troponin T Baseline 76 ng/L (0-15) H 09/20/21 21:10 Troponin T 120 Minute 63.25 ng/L (0-15) H 09/20/21 23:06 Delta Troponin T -12.75 ABS# (0-10) L 09/20/21 23:06 Troponin T Hi Sens 6Hr 58.56 ng/L (0-15) H 09/21/21 03:06 Troponin T Hi Sens 6Hr Delta -17.44 ng/L (0-12) L 09/21/21 03:06 Total Protein 6.7 g/dL (6.6-8.7) 09/20/21 23:06 Albumin 4.5 g/dL (3.5-5.2) 09/20/21 23:06 Globulin 2.2 g/dL (1.3-4.6) 09/20/21 23:06 Triglycerides 90 mg/dL (0-150) 09/20/21 23:06 Lipase > 5052 U/L (13-60) H 09/20/21 23:06 Imaging Data Other Imaging: Radiologist's impression: Launch?Image [address] [address] XRay Report Signed Patient: Chalo Hartman Unit #: [id number] : 1935 Age/Sex: 86 / M ADM Date: 09/20/21 Loc: ER Room/Bed: Attending Dr: Ordering Provider/Ordering MD: Octavio Yanes MD Date of Service: 09/20/21 Procedure(s): XR chest 1V portable [id number] Accession Number(s): [id number] Report Number: [id number] PROCEDURE INFORMATION: Exam: XR Chest Exam date and time: 09/20/2021 9:48 PM Age: 86 years old Clinical indication: Pain; Chest pressure; Additional info: Chest pain TECHNIQUE: Imaging protocol: XR of the chest. Views: 1 view. COMPARISON: CR XR chest 1V portable [id number] 07/30/2021 4:20 PM FINDINGS: Lungs: Unremarkable. No consolidation. Pleural spaces: Unremarkable. No pleural effusion. No pneumothorax. Heart/Mediastinum: Unremarkable. No cardiomegaly. Bones/joints:? Chronic degenerative change in the right shoulder.? Chronic widening of the left AC joint. XR/XR chest 1V portable [id number] IMPRESSION: No change, lungs clear ? 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 for Chg 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 Documented by User: Juan Pablo Hoff DO 09/21/21 05:29 HPI - General Adult General: Chief complaint: Chest Pain Stated complaint: N\V Chest Pain Time Seen by Provider: 09/20/21 21:06 PFS ED PFSH: Medical History BPH loc w urin obs/LUTS Chronic prostatitis Diabetes mellitus patient does not endorse this diagnosis today but has high blood sugar Family history of prostate cancer Hypertension Osteoarthritis Surgical History H/O arthroscopy of right knee History of back surgery Family History Mother , at age 81 Cancer lung Father , at age 82 Cancer prostate Social History Second hand smoke exposure: No Alcohol intake: never Lives independently: Yes Household members: spouse Marital status: Current occupational status: retired History of recent travel: No Current gender identity: Male Course Vital Signs: Vital signs: Vital Signs Temperature 97.6 F 09/20/21 21:12 Pulse Rate 114 H 09/21/21 02:15 Respiratory Rate 18 09/21/21 02:15 Blood Pressure 163/99 09/21/21 02:15 Pulse Oximetry 94 09/21/21 02:15 MDM - General Adult Medical Decision Making 86-year-old male with history of diabetes, hypertension, fibrillation not on anticoagulation presenting to the emergency room for concerns of upper abdominal/lower chest pain. On physical exam, patient is afebrile. Abdominal exam benign. Patient is noted to have white count 20.1K. CT abdomen pelvis pending at this time. S/p IVF and zofran. Troponin of 76, Cr of 1.4 similar to baseline. Case signed out to Dr. Hoff. This patient is found by CTA to have acute pancreatitis. No pseudocyst formation. Liver enzymes were not available, as were not ordered initially. They ordered on blood in lab and show mild transaminitis with a bilirubin of 3.1. Lipase also unavailable initially, is greater than 5000. No comment was made about the bile duct in the CT scan. Gallbladder ultrasound shows mild bile duct dilatation. Because of this, the patient's diagnosis, and hyperbili rubinemia, MRCP is ordered to rule out CBD obstruction. The patient does have gallstones on ultrasound. He is receiving IV fluid, antibiotics. MRCP is negative for common bile duct stone. It does show significant inflammation surrounding the pancreas. Again, the patient is getting IV fluid, antibiotics. Consulted hospitalist for admission. He will evaluate the patient in the ER. Lab Data : 09/20/21 21:10 09/20/21 21:10 Radiology Impressions Chest X-Ray 09/20/21 21:06 IMPRESSION: No change, lungs clear Chest/Abdomen/Pelvis CTA 09/20/21 22:06 IMPRESSION: 1. No pulmonary embolism or pneumonia. 2. Mild interstitial edema. IMPRESSION: 1. Acute pancreatitis. No necrosis or pseudocyst. Small ascites. 2. Gallstones in the gallbladder. No visible obstruction. 3. Duodenal inflammation is most likely secondary. Gallbladder Ultrasound 09/21/21 00:05 IMPRESSION: 1. Mildly dilated common bile duct. Distal obstruction such as common bile duct stone not excluded. 2. Cholelithiasis. No convincing ultrasound evidence of acute cholecystitis. Cholangiopancreatography MRI 09/21/21 01:17 IMPRESSION: 1. Inflammatory changes and fluid signal intensity is seen surrounding the pancreas, adjacent to the proximal duodenum, within Gerota's fascia bilaterally and extending into the left pericolic gutter, findings compatible with acute pancreatitis. 2. Gallstones without evidence for cholecystitis. The common bile duct is normal in caliber. Laboratory Results WBC 21.0 10^3/uL (4.0-10.0) H 09/20/21 21:10 RBC 5.08 10^6/uL (4.1-5.3) 09/20/21 21:10 Hgb 16.4 g/dL (11.7-16.6) 09/20/21 21:10 Hct 49.1 % (42.0-52.0) 09/20/21 21:10 MCV 96.7 fl (80-94) H 09/20/21 21:10 MCH 32.3 pg (28.0-34.0) 09/20/21 21:10 MCHC 33.4 g/dL (30.0-36.0) 09/20/21 21:10 RDW 15.1 % (12.1-15.1) 09/20/21 21:10 Plt Count 225 10^3/cmm (130-400) 09/20/21 21:10 MPV 9.1 fL (7.4-10.4) 09/20/21 21:10 Neut % (Auto) 89.4 % 09/20/21 21:10 Lymph % (Auto) 3.7 % 09/20/21 21:10 [place] % (Auto) 5.9 % 09/20/21 21:10 Eos % (Auto) 0.1 % 09/20/21 21:10 Baso % (Auto) 0.2 % 09/20/21 21:10 Neut # (Auto) 18.80 10^3/uL (1.8-7.7) H 09/20/21 21:10 Lymph # (Auto) 0.8 10^3/uL (0.8-4.8) 09/20/21 21:10 [place] # (Auto) 1.2 10^3/uL (0.2-0.9) H 09/20/21 21:10 Eos # (Auto) 0.0 10^3/uL (0.0-0.8) 09/20/21 21:10 Baso # (Auto) 0.0 10^3/uL (0.0-0.1) 09/20/21 21:10 Nucleated RBC % (auto) 0 % 09/20/21 21:10 Nucleated RBCs # 0.0 /100WBC 09/20/21 21:10 PT 14.70 SECONDS (12.1-14.9) 09/21/21 00:10 INR 1.11 (0.8-1.2) 09/21/21 00:10 Sodium 132 mmol/L (136-145) L 09/20/21 21:10 Potassium 5.0 mmol/L (3.5-5.1) 09/20/21 21:10 Chloride 94 mmol/L (98-107) L 09/20/21 21:10 Carbon Dioxide 24 mmol/L (22-29) 09/20/21 21:10 Anion Gap 19.0 (5-19) 09/20/21 21:10 BUN 26 mg/dL (8-23) H 09/20/21 21:10 Creatinine 1.4 mg/dL (0.7-1.2) H 09/20/21 21:10 GFR Calculation Not Reportable 09/20/21 21:10 Glucose 232 mg/dL (65-115) H 09/20/21 21:10 Calculated Osmolality 286 mOsm/kg (285-295) 09/20/21 21:10 Calcium 10.1 mg/dL (8.5-10.5) 09/20/21 21:10 Total Bilirubin 3.1 mg/dL (0.15-1.2) H 09/20/21 23:06 Direct Bilirubin 2.30 mg/dL (0.00-0.30) H 09/20/21 23:06 AST 155 U/L (0-40) H 09/20/21 23:06 ALT 118 U/L (0-41) H 09/20/21 23:06 Alkaline Phosphatase 147 IU/L (40-130) H 09/20/21 23:06 Lactate Dehydrogenase 330 U/L (135-225) H 09/20/21 23:06 Troponin T Baseline 76 ng/L (0-15) H 09/20/21 21:10 Troponin T 120 Minute 63.25 ng/L (0-15) H 09/20/21 23:06 Delta Troponin T -12.75 ABS# (0-10) L 09/20/21 23:06 Troponin T Hi Sens 6Hr 58.56 ng/L (0-15) H 09/21/21 03:06 Troponin T Hi Sens 6Hr Delta -17.44 ng/L (0-12) L 09/21/21 03:06 Total Protein 6.7 g/dL (6.6-8.7) 09/20/21 23:06 Albumin 4.5 g/dL (3.5-5.2) 09/20/21 23:06 Globulin 2.2 g/dL (1.3-4.6) 09/20/21 23:06 Triglycerides 90 mg/dL (0-150) 09/20/21 23:06 Lipase > 5052 U/L (13-60) H 09/20/21 23:06 Discharge Plan Discharge Patient Disposition: Admitted As Inpatient Admit Provider: Amina Rasmussen Clinical Impression: Acute pancreatitis Condition: Stable Coding Level of Care Code ED Corn Detasseler Machine Operator for Chg 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
[2021-09-20] MEDS: ondansetron 2 mg/ML SDV 2 mL 4 MG IVP (22:15)
[2021-09-20] MEDS: sodium chloride 0.9% 500 ML IV (22:16)
[2021-09-20] MEDS: iodixanol 320 mg/mL 100mL Btl IV (22:43)
--- NOTE | 2021-09-20 23:06 | ECG_ITS ---
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 Measurements Intervals [place] Rate: 81 P: MN: QRS: -50 QRSD: 136 T: 73 QT: 398 QTc: 464 Interpretive Statements ATRIAL FLUTTER LEFT AXIS DEVIATION [QRS AXIS < -30] INTRAVENTRICULAR CONDUCTION DELAY [130+ ms QRS DURATION] POSSIBLE ANTERIOR MYOCARDIAL INFARCTION , PROBABLY OLD Compared to ECG 09/20/2021 21:03:39 Left-axis deviation now present Intraventricular conduction delay now present Atrial fibrillation no longer present Left anterior fascicular block no longer present Myocardial infarct finding still present Electronically Signed On 09-21-2021 17:43:01 CDT by Marnie Keith M.D. [id number]
[2021-09-21] VITALS (22 sets, daily range): BP systolic 123–166; BP diastolic 78–112; PULSE 85–124; RESP 15–23; TEMP 36.8–37.1; O2SAT 93–97; BMI 26.7
[2021-09-21 00:01] LABS: Alanine Aminotransferase 118 U/L (0-41); Albumin Level 4.5 g/dL (3.5-5.2); Alkaline Phosphatase 147 IU/L (40-130); Globulin 2.2 g/dL (1.3-4.6); Total Bilirubin 3.1 mg/dL (0.15-1.2); Total Protein 6.7 g/dL (6.6-8.7); Triglycerides 90 mg/dL (0-150)
[2021-09-21 00:02] LABS: Aspartate Amino Transferase 155 U/L (0-40); Troponin 5 2HR 63.25 ng/L (0-15); Troponin 5 2HR Delta -12.75 ABS# (0-10)
[2021-09-21 00:03] LABS: Lactate Dehydrogenase 330 U/L (135-225)
--- NOTE | 2021-09-21 00:05 | USR_ITS ---
PROCEDURE INFORMATION: Exam: US Abdomen, Limited; Right Upper Quadrant Exam date and time: 09/21/2021 12:37 AM Age: 86 years old Clinical indication: Nausea and vomiting; Abdominal pain; Additional info: Acute pancreatitis, hyperbilirubinemia TECHNIQUE: Imaging protocol: US abdomen. Real time ultrasound with image documentation. Limited exam focused on the right upper quadrant. COMPARISON: CT angio chest abdomen pelvis 09/20/2021 10:32 PM FINDINGS: Liver: Normal. No masses. Gallbladder: Echogenic foci in gallbladder lumen suspicious for cholelithiasis. Gallbladder wall difficult to characterize as there are lobulations of wall with likely Phrygian cap. No distinct gallbladder wall thickening apparent. Biliary ducts: Common bile duct is mildly dilated, estimated 8 mm proximally. Pancreas: Pancreas poorly assessed. Windows obscured by bowel gas. US/US gall bladder [id number] IMPRESSION: 1. Mildly dilated common bile duct. Distal obstruction such as common bile duct stone not excluded. 2. Cholelithiasis. No convincing ultrasound evidence of acute cholecystitis.
[2021-09-21 00:27] LABS: INR 1.11 (0.8-1.2)
--- NOTE | 2021-09-21 01:17 | MRR_ITS ---
PROCEDURE INFORMATION: Exam: MR Abdomen Without Contrast Exam date and time: 09/21/2021 3:41 AM Age: 86 years old Clinical indication: Abdominal pain; Epigastric; Patient HX: PT is an elderly male with sever pain in the abdomen starting 2 days ago with vomiting starting at 1600 on 09/20/2021; Additional info: Acute pancreatitis, hyperbilirubinemia TECHNIQUE: Imaging protocol: MR of the abdomen without contrast. COMPARISON: CT angio chest abdomen pelvis 09/20/2021 10:32 PM FINDINGS: Liver: No mass. Gallbladder and bile ducts: There are gallstones present. The common bile duct is normal in caliber. Pancreas: See Intraperitoneal space finding. Spleen: Unremarkable. No splenomegaly. Adrenal glands: Unremarkable. No mass. Kidneys and ureters: Unremarkable. No solid mass. No hydronephrosis. Stomach and bowel: See Intraperitoneal space finding. Intraperitoneal space: There is fluid signal intensity adjacent to dura is fascia bilaterally extending into the left pericolic gutter and adjacent to the pancreatic body and tail. Fluid signal intensity is seen surrounding the proximal duodenum. These findings suggest acute pancreatitis. Arteries: No abdominal aortic aneurysm. Bones/joints: Unremarkable. Soft tissues: Unremarkable. MR/MR MRCP [id number] IMPRESSION: 1. Inflammatory changes and fluid signal intensity is seen surrounding the pancreas, adjacent to the proximal duodenum, within Gerota's fascia bilaterally and extending into the left pericolic gutter, findings compatible with acute pancreatitis. 2. Gallstones without evidence for cholecystitis. The common bile duct is normal in caliber.
[2021-09-21] MEDS: piperacillin-tazobactam 3.375 GM in sodium chloride 0.9% (plus) 50 ML IV (02:17)
[2021-09-21] MEDS: sodium chloride 0.9% 1,000 ML 150 ML IV (02:23)
[2021-09-21 03:42] LABS: Troponin 5 6HR 58.56 ng/L (0-15)
--- NOTE | 2021-09-21 05:32 | P.HP_ITS ---
Providers/Chief Complaint Primary Care Provider: Pamela Aguila MD Chief Complaint: N\V Chest Pain History of Present Illness the patient is a in 86-year-old male who presented to [place] abdominal pain which are possibly 40 hours prior to hospitalization. He states it is localized to the subxiphoid region without any radiation. He describes a sharp and's been intermittent since the time of onset. As worst rated 10 out of 10 and currently rates 2 out of 10. He did not take any medication for the pain at home. He indicates that his last bowel movement was possibly 24 hours prior to hospitalization. He denies diarrhea, melena, hematochezia, stat area. He indicates that he has not been able to tolerate by mouth since the onset of the pain. He denies fever, rigors, no nausea, vomiting. He states that he takes NSAIDs frequently. He presents for further evaluation Review of Systems General: Reports: 10 or more systems reviewed and unremarkable except in HPI and below Medications/Allergies Home Medications Medication Instructions Recorded Confirmed Last Taken Type tramadol 50 mg tablet 50 - 100 mg PO Q6H PRN 10/31/19 08/28/21 Unknown History lisinopril 20 mg tablet 20 mg PO BID 04/10/20 08/28/21 07/30/21 History furosemide 20 mg tablet 20 mg PO DAILY #90 tab 10/21/20 08/28/21 07/30/21 Rx gabapentin 300 mg capsule 600 mg PO BID cap 10/30/20 08/28/21 07/30/21 History (Neurontin) meloxicam 15 mg tablet (Mobic) 15 mg PO DAILY 10/30/20 08/28/21 07/30/21 History memantine 5 mg tablet 10 mg PO BID 10/30/20 08/28/21 07/30/21 History mupirocin 2 % topical ointment 1 applic TOPICAL BID 10/30/20 08/28/21 Unknown History sertraline 25 mg tablet 50 mg PO DAILY@18 tab 10/30/20 08/28/21 07/29/21 History simvastatin 20 mg tablet 20 mg PO DAILY 10/30/20 08/28/21 07/29/21 History cholecalciferol (vitamin D3) 25 25 mcg PO DAILY 07/30/21 08/28/21 07/30/21 History mcg (1,000 unit) capsule (Vitamin D3) silver sulfadiazine 1 % topical 1 applic TOPICAL BID #50 g 07/30/21 08/28/21 Unknown Rx cream (Silvadene) amoxicillin 250 mg capsule 250 mg PO BID 7 Days #14 cap 07/31/21 08/28/21 Unknown Rx diltiazem HCl 120 mg 120 mg PO DAILY #90 cap 08/05/21 08/28/21 Unknown Rx capsule,extended release 24 hr honey 80 % topical gel (MediHoney 1 applic TOPICAL DAILY 08/05/21 08/28/21 Unknown History (honey)) metoprolol tartrate 25 mg tablet 25 mg PO BID #120 tab 08/07/21 08/28/21 Unknown Rx Allergies Allergy/AdvReac Type Severity Reaction Status Date / Time No Known Allergies Allergy Verified 08/28/21 10:28 PFSH Acute PFSH: Medical History BPH loc w urin obs/LUTS Chronic prostatitis Diabetes mellitus patient does not endorse this diagnosis today but has high blood sugar Family history of prostate cancer Hypertension Osteoarthritis Surgical History H/O arthroscopy of right knee History of back surgery Family History Mother , at age 81 Cancer lung Father , at age 82 Cancer prostate Social History Second hand smoke exposure: No Alcohol intake: never Lives independently: Yes Household members: spouse Marital status: Current occupational status: retired History of recent travel: No Current gender identity: Male Vitals/I&O/Wt Last Vital Signs Temp 97.6 F 09/20/21 21:12 Pulse 114 H 09/21/21 02:15 Resp 18 09/21/21 02:15 BP 163/99 09/21/21 02:15 Pulse Ox 94 09/21/21 02:15 09/20/21 09/20/21 09/21/21 14:59 22:59 06:59 Intake Total 550 / 550 Balance 550 / 550 Physical Exam Narrative: General: -Alert -No acute distress -No dyspnea -No tachypnea Head: -Atraumatic -Normocephalic Eyes: -Pupils equally round and reactive to light and accommodation -Extraocular muscles intact Neurological: -Cranial nerves II-XII intact Neck: -No jugular venous distention -No thyromegaly -No cervical lymphadenopathy Heart: -Regular rate -Regular rhythm -No murmurs -No gallops -No rubs Lungs: -No wheeze -No rhonchi -No rales ? Abdomen: -Normal bowel sounds in all four quadrants -No rebound -No guarding -No tenderness Extremities: -2/4 pulse in all four extremities -No clubbing -No cyanosis -No edema -No calf tenderness present bilaterally -Negative Madelin?s sign bilaterally Musculoskeletal: -5/5 bilateral upper extremity strength -5/5 bilateral lower extremity strength -Sensorium of bilateral upper extremities are equal and intact -Sensorium of bilateral lower extremities are equal and intact ? Additional Details / Additional Findings / Exceptions / Miscellaneous: Data : 09/20/21 21:10 09/20/21 21:10 A&P Assessment and plan (1) Acute pancreatitis: Status: Acute Plan acute pancreatitis. MRCP and other imaging demonstrates cholelithiasis however does not Dem straight cholecystitis or choledocholithiasis. Will monitor lipase levels intermittently. Fasting lipid panel pending. Nothing by mouth. IV normal saline 75 ML's per hour Acute renal insufficiency. Will monitor creatinine intermittently. IV normal saline 75 ML's per hour Hyponatremia, chronic. We will monitor sodium level intermittently. IV normal saline 75 ML's per hour Atrial fibrillation. Telemetry monitoring BPH Depression Dementia Elevated troponin, chronic. Patient gives no signs or symptoms of ACS. Will monitor patient on telemetry and checks her cardiac enzymes. Recheck EKG on the morning of September 22, 2021 Documented history of pulmonary hypertension Chronic prostatitis Neuropathy Diabetes. Will check fasting glucose before meals and at bedtime and provide some slight scale Hyperlipidemia. Fasting lipid panel pending Hypertension Pulmonary fibrosis Ambrosio arthritis Macrocytosis. TSH, free T4, B12, folate level pending History of coagulopathy. PT/INR pending Cholelithiasis Moderate tricuspid regurgitation Seasonal allergies DVT Proflex is. 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
[2021-09-21 06:19] LABS: INR 1.18 (0.8-1.2)
[2021-09-21 06:39] LABS: Glucose Point of Care 229 mg/dL (70-110)
[2021-09-21 06:43] LABS: Chol HDL Ratio 2.26 mg/dL (1.0-5.00); Cholesterol 88 mg/dL (0-200); HDL Cholesterol 39 mg/dL (60-100); LDL Cholesterol Calculated 33 mg/dL (50-129); LDL HDL Ratio 0.85 RATIO (0.00-3.22); Thyroid Stimulating Hormone 0.94 uIU/mL (0.27-4.20); Triglycerides 82 mg/dL (0-150); Vitamin B12 762 pg/mL (232-1245)
[2021-09-21 07:11] LABS: Free T4 Free Thyroxine 1.32 ng/dL (0.82-1.77)
[2021-09-21] MEDS: insulin lispro 100 unit/1 mL SUBCUT ×4 (08:27→21:16)
[2021-09-21] MEDS: morphine 4 mg/mL SDV 1 mL 2 MG IVP ×3 (08:27→19:13)
[2021-09-21] MEDS: enoxaparin 30 mg/0.3 mL Syringe SUBCUT (08:27)
[2021-09-21 11:38] LABS: Glucose Point of Care 163 mg/dL (70-110)
--- NOTE | 2021-09-21 11:51 | PC.PHAR ---
pts verified pts medications-pts states the pts eliquis 2.5mg bid was dced ext med history shows last filled 07/31/21 30d/s-pts states the pt is no longer using the dakins solution-pts states the pt only takes lisinopril 20mg qam ext med history shows last filled 08/30/21 20mg bid-notes are made in the pharmacy comments
--- NOTE | 2021-09-21 13:04 | PM.MISC ---
Miscellaneous Note Purpose of Documentation: Progress note Note: Continue management as stated in history and physical document. Patient seen at bedside. Family updated. Full code
[2021-09-21] MEDS: dilTIAZem ER (24HR) 120 mg Capsule PO (13:35)
[2021-09-21] MEDS: metoprolol tartrate 25 mg Tablet PO ×2 (13:35→18:19)
[2021-09-21 17:45] LABS: Glucose Point of Care 146 mg/dL (70-110)
[2021-09-21] MEDS: memantine 5 mg tablet 10 MG PO (18:19)
[2021-09-21] MEDS: sertraline 50 mg Tablet PO (18:19)
[2021-09-21] MEDS: sodium chloride 0.9% 1,000 ML 75 ML IV (18:20)
[2021-09-21 21:05] LABS: Glucose Point of Care 145 mg/dL (70-110)
[2021-09-22] VITALS (12 sets, daily range): BP systolic 132–149; BP diastolic 66–84; PULSE 86–109; RESP 17–18; TEMP 36.8–37.6; O2SAT 90–96
[2021-09-22] MEDS: morphine 4 mg/mL SDV 1 mL 2 MG IVP ×2 (00:22→04:22)
[2021-09-22 05:05] LABS: Basophils % 0.2 %; Hematocrit 47.1 % (42.0-52.0); Hemoglobin 15.2 g/dL (11.7-16.6); Lymphocytes # 1.1 10^3/uL (0.8-4.8); Lymphocytes % 4.2 %; Mean Corpuscular HGB Conc 32.3 g/dL (30.0-36.0); Mean Corpuscular Hemoglobin 32.1 pg (28.0-34.0); Mean Corpuscular Volume 99.6 fl (80-94); Mean Platelet Volume 8.9 fL (7.4-10.4); Monocytes # 1.3 10^3/uL (0.2-0.9); Monocytes % 5.2 %; Neutrophils # 22.67 10^3/uL (1.8-7.7); Neutrophils % 89.2 %; Nucleated Red Blood Cells % 0 %; Platelet Count 162 10^3/cmm (130-400); Red Blood Count 4.73 10^6/uL (4.1-5.3); Red Cell Distribution Width 15.4 % (12.1-15.1); White Blood Count 25.4 10^3/uL (4.0-10.0)
[2021-09-22 05:35] LABS: Alanine Aminotransferase 111 U/L (0-41); Albumin Level 3.9 g/dL (3.5-5.2); Alkaline Phosphatase 138 IU/L (40-130); Aspartate Amino Transferase 82 U/L (0-40); Blood Urea Nitrogen 23 mg/dL (8-23); Calcium 8.8 mg/dL (8.5-10.5); Carbon Dioxide 19 mmol/L (22-29); Chloride 102 mmol/L (98-107); Globulin 2.9 g/dL (1.3-4.6); Glucose 154 mg/dL (65-115); Osmolality Calculated 285 mOsm/kg (285-295); Sodium 134 mmol/L (136-145); Total Bilirubin 3.5 mg/dL (0.15-1.2); Total Protein 6.8 g/dL (6.6-8.7)
[2021-09-22 05:42] LABS: Lipase 1063 U/L (13-60)
[2021-09-22 06:28] LABS: Glucose Point of Care 164 mg/dL (70-110)
[2021-09-22] MEDS: enoxaparin 30 mg/0.3 mL Syringe SUBCUT (08:48)
[2021-09-22] MEDS: dilTIAZem ER (24HR) 120 mg Capsule PO (08:49)
[2021-09-22] MEDS: memantine 5 mg tablet 10 MG PO ×2 (08:49→17:47)
[2021-09-22] MEDS: insulin lispro 100 unit/1 mL SUBCUT ×4 (08:49→20:56)
[2021-09-22] MEDS: metoprolol tartrate 25 mg Tablet PO ×2 (08:49→17:47)
[2021-09-22] MEDS: sodium chloride 0.9% 1,000 ML 75 ML IV ×2 (08:54→20:56)
[2021-09-22 11:57] LABS: Glucose Point of Care 161 mg/dL (70-110)
[2021-09-22] MEDS: piperacillin-tazobactam 3.375 GM in sodium chloride 0.9% (plus) 50 ML IV ×2 (13:37→20:15)
--- NOTE | 2021-09-22 13:41 | P.PN_ITS ---
Subjective Subjective: Seen this morning. Afebrile overnight. Heart rate stable overnight. Patient reportedly feels a little bit better. Abdominal pain is improved. is at bedside. Will start clear liquids today. Lipase 1000 today. Vitals/I&O/Wt Last Vital Signs Temp 98.9 F 09/22/21 11:20 Pulse 107 H 09/22/21 11:20 Resp 18 09/22/21 11:20 BP 132/77 09/22/21 11:20 Pulse Ox 94 09/22/21 11:20 09/21/21 09/22/21 09/22/21 22:59 06:59 14:59 Intake Total 240 / 1240 30 / 1270 1000 / 1000 Balance 240 / 1240 30 / 1270 1000 / 1000 Weight last 48 hrs Weight 89.403 kg Physical Exam Narrative: General: Alert oriented x3, patient seen sitting up in bed appearing comfortable. at bedside. HEENT: Normocephalic, atraumatic, EOMI, Cardio: Regular rate rhythm, normal S1-S2, no murmurs Respiratory: Clear to auscultation bilaterally no wheezes no rhonchi, no bibasilar crackles present. GI: Abdomen soft, very mildly tender to palpation around epigastric region, nondistended, bowel sounds + abdominal exam significantly improved compared to yesterday. Extremities: no edema, no cyanosis Data : 09/22/21 04:40 09/22/21 04:40 A&P Assessment and plan (1) Acute pancreatitis: Status: Acute (2) Ectopic atrial tachycardia: Status: Acute (3) Cardiomyopathy: Status: Acute Qualifiers: Cardiomyopathy type: unspecified Qualified Code(s): I42.9 - Cardiomyopathy, unspecified (4) Chronic prostatitis: Status: Acute (5) Pulmonary HTN: Status: Acute (6) Atrial fibrillation: Status: Acute (7) Diabetes mellitus: Status: Acute Qualifiers: Diabetes mellitus type: type 2 Diabetes mellitus halfway insulin use: without termite control servicer use (8) Pulmonary fibrosis: Status: Acute (9) Hyponatremia: Status: Acute (10) Dehydration: Status: Acute Plan #Acute pancreatitis #Cholelithiasis #MARTIN #Hyponatremia chronic #Atrial fibrillation #Dementia, depression #BPH #History of pulmonary hypertension, chronically elevated troponins, pulmonary fibrosis #Chronic prostatitis #Diabetes mellitus complicated by peripheral neuropathy #Hyperlipidemia, hypertension, moderate tricuspid regurgitation -Continue patient on IV fluids normal saline 75 cc/h ? Start clear liquid diet -Continue Zosyn. -Total bilirubin elevated to 3.5 today. On admission it was 3.1. There was no CBD dilation on MRCP at admission. Because of rising bilirubin I will recheck CT abdomen. ? Consider general surgery consultation for cholecystectomy. ? Slightly elevated liver enzymes. Continue to monitor. I will check hepatitis panel today ? Continue Cardizem and metoprolol for atrial fibrillation. Unsure why patient is not on any anticoagulation. I will discuss this with him. [id number] high. ? Lovenox 30 subcu for DVT prophylaxis Full Code Family interested in home health Attestations Medical Necessity Statement*: Anticipate 48 hour stay for management of above. 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
[2021-09-22 16:14] LABS: Glucose Point of Care 185 mg/dL (70-110)
[2021-09-22] MEDS: HYDROcodone-acetaminophen 5-325 mg Tablet 1 TAB PO (16:51)
[2021-09-22] MEDS: sertraline 50 mg Tablet PO (17:47)
[2021-09-22 20:36] LABS: Glucose Point of Care 188 mg/dL (70-110)
[2021-09-23] MEDS: HYDROcodone-acetaminophen 5-325 mg Tablet 1 TAB PO ×3 (00:10→16:59)
[2021-09-23 04:00] VITALS: BP 139/62; PULSE 86; RESP 17; TEMP 37.2; O2SAT 92
[2021-09-23] MEDS: piperacillin-tazobactam 3.375 GM in sodium chloride 0.9% (plus) 50 ML IV ×3 (04:27→20:35)
[2021-09-23 05:49] LABS: Basophils % 0.1 %; Hematocrit 42.6 % (42.0-52.0); Hemoglobin 13.5 g/dL (11.7-16.6); Lymphocytes # 1.1 10^3/uL (0.8-4.8); Lymphocytes % 4.9 %; Mean Corpuscular HGB Conc 31.7 g/dL (30.0-36.0); Mean Corpuscular Volume 100.9 fl (80-94); Mean Platelet Volume 9.5 fL (7.4-10.4); Monocytes # 1.1 10^3/uL (0.2-0.9); Monocytes % 5.2 %; Neutrophils # 19.04 10^3/uL (1.8-7.7); Neutrophils % 88.1 %; Nucleated Red Blood Cells % 0 %; Platelet Count 155 10^3/cmm (130-400); Red Blood Count 4.22 10^6/uL (4.1-5.3); Red Cell Distribution Width 15.4 % (12.1-15.1); White Blood Count 21.6 10^3/uL (4.0-10.0)
[2021-09-23 06:20] LABS: Glucose Point of Care 163 mg/dL (70-110)
[2021-09-23 08:02] LABS: Alanine Aminotransferase 74 U/L (0-41); Albumin Level 3.5 g/dL (3.5-5.2); Alkaline Phosphatase 106 IU/L (40-130); Anion Gap 19.2 (5-19); Aspartate Amino Transferase 56 U/L (0-40); Blood Urea Nitrogen 24 mg/dL (8-23); Calcium 7.8 mg/dL (8.5-10.5); Carbon Dioxide 16 mmol/L (22-29); Chloride 102 mmol/L (98-107); Globulin 2.6 g/dL (1.3-4.6); Glucose 161 mg/dL (65-115); Osmolality Calculated 284 mOsm/kg (285-295); Potassium 4.2 mmol/L (3.5-5.1); Sodium 133 mmol/L (136-145); Total Protein 6.1 g/dL (6.6-8.7)
[2021-09-23] MEDS: enoxaparin 40 mg/0.4 mL Syringe SUBCUT (08:02)
[2021-09-23] MEDS: insulin lispro 100 unit/1 mL SUBCUT ×4 (08:09→20:53)
[2021-09-23 08:19] VITALS: BP 130/92; PULSE 126; RESP 28; TEMP 37.1; O2SAT 99
[2021-09-23] MEDS: metoprolol tartrate 25 mg Tablet PO ×2 (09:25→18:08)
[2021-09-23] MEDS: memantine 5 mg tablet 10 MG PO ×2 (09:25→18:07)
[2021-09-23] MEDS: dilTIAZem ER (24HR) 120 mg Capsule PO (09:26)
--- NOTE | 2021-09-23 10:28 | PC.NURSE ---
Informed Dr. Murillo via [employer] of patient's heart rate of 130's and that he went up in the 170's when ambulating in his room.
[2021-09-23 10:48] VITALS: BP 140/86; PULSE 118; RESP 18; TEMP 36.8; O2SAT 91
--- NOTE | 2021-09-23 11:39 | PC.NURSE ---
Spoke with Dr. Murillo over the phone and he told me to stop IV fluids, recheck vitals, and then to give 10mg IVP of cardizem.
[2021-09-23 11:40] LABS: Glucose Point of Care 172 mg/dL (70-110)
[2021-09-23] MEDS: dilTIAZem 5 mg/mL SDV 5 mL 10 MG IVP (11:50)
[2021-09-23] MEDS: magnesium hydroxide 30 mL UDC PO (12:29)
--- NOTE | 2021-09-23 15:31 | PC.NURSE ---
Changed dressing on Right Great Toe.
--- NOTE | 2021-09-23 15:56 | P.PN_ITS ---
Subjective Subjective: Hospital course, labs appreciated. Family at bedside. Patient denies any nausea, vomiting, headache. Tolerated clear liquid diet for his breakfast today but felt bloated. Patient is having occasional episodes of A. fib with RVR. Does have a history of A. fib in the past. Denies any palpitations, chest pain or difficulty in breathing. Vitals/I&O/Wt Last Vital Signs Temp 98.3 F 09/23/21 10:48 Pulse 118 H 09/23/21 10:48 Resp 18 09/23/21 10:48 BP 140/86 09/23/21 10:48 Pulse Ox 91 09/23/21 10:48 09/23/21 09/23/21 09/23/21 06:59 14:59 22:59 Intake Total 330 / 2762.5 1170 / 1170 Output Total 225 / 225 Balance 330 / 2762.5 945 / 945 Physical Exam Narrative: General: Alert oriented x3, patient seen sitting up in bed appearing comfortable. at bedside. HEENT: Normocephalic, atraumatic, EOMI, Cardio: Irregularly irregular rhythm, normal S1-S2, no murmurs Respiratory: Clear to auscultation bilaterally no wheezes no rhonchi, no bibasilar crackles present. GI: Abdomen soft, very mildly tender to palpation around epigastric region, nondistended, bowel sounds + Extremities: no edema, no cyanosis Data : 09/23/21 05:15 09/23/21 07:28 A&P Assessment and plan (1) Acute pancreatitis: Seems to be resolving. Most likely secondary to gallstones passing. No acute obstruction seen on MRCP done on 09/21. Lipase trending down. When last checked on 09/22. Liver functions improving. Pain regimen. Zofran as needed. Advance to full liquid diet for lunch and if tolerates can advance to GI soft for dinner. Multiple small meals. Protonix once daily. Status: Acute (2) Atrial fibrillation: With rapid ventricular response. Give 10 mg IV Cardizem. Takes Cardizem 120 mg daily at home and metoprolol 25 mg twice daily. Switch to Cardizem 60 mg every 6 hour. Continue with home dose of metoprolol. Not on anticoagulation at home. We will confirm with family regarding reason. Status: Acute (3) Cardiomyopathy: Cardiogram from April 2020 shows an EF of 65%, moderate concentric LVH, mildly increased LA size, mild AI, mild TR and MR. Status: Acute Qualifiers: Cardiomyopathy type: unspecified Qualified Code(s): I42.9 - Cardiomyopathy, unspecified (4) Chronic prostatitis: Status: Acute (5) Pulmonary HTN: Status: Acute (6) Diabetes mellitus: Status: Acute Qualifiers: Diabetes mellitus type: type 2 Diabetes mellitus termite renewal inspector insulin use: without intermediate use (7) Pulmonary fibrosis: Status: Acute (8) Hyponatremia: Status: Acute (9) Dehydration: Status: Acute Plan Full code. Full liquid diet. Lovenox for DVT prophylaxis. Protonix for PUD prophylaxis. Discharge planning: Home health for medication and intermediate. Family interested. call center operations manager alerted. Discharge planning: Plan to discharge the next 24 hours with heart rate remained stable and patient able to full liquid/mechanical soft diet. Attestations Medical Necessity Statement*: Requires further hospitalization for management of acute pancreatitis while diet is advanced, atrial fibrillation with rapid ventricular response requiring IV Cardizem pushes Time Spent in Patient Care: Greater than 35 minutes Coding Level of Care Code Acute Reimbursement Specialist for [facility] Fwd Diagnoses Acute pancreatitis K85.90 Cardiomyopathy I42.9 Cardiomyopathy type: unspecified Chronic prostatitis N41.1 Pulmonary HTN I27.20 Atrial fibrillation I48.91 Diabetes mellitus E11.9 Diabetes mellitus type: type 2 Diabetes mellitus intermediate insulin use: without termite renewal inspector use Pulmonary fibrosis J84.10 Hyponatremia E87.1 Dehydration E86.0
[2021-09-23 16:00] VITALS: BP 145/78; PULSE 108; RESP 13; O2SAT 90
[2021-09-23] MEDS: dilTIAZem 60 mg Tablet PO ×2 (16:58→21:00)
[2021-09-23] MEDS: sertraline 50 mg Tablet PO (18:07)
[2021-09-23] MEDS: gabapentin 300 mg Capsule 600 MG PO (18:07)
[2021-09-23 18:18] LABS: Glucose Point of Care 233 mg/dL (70-110)
[2021-09-23 19:22] VITALS: BP 131/77; PULSE 103; RESP 17; TEMP 36.7; O2SAT 92
[2021-09-23 20:57] LABS: Glucose Point of Care 230 mg/dL (70-110)
[2021-09-23 23:54] VITALS: BP 97/58; PULSE 75; RESP 17; TEMP 36.6; O2SAT 96
[2021-09-24 03:46] VITALS: BP 100/60; PULSE 70; RESP 17; TEMP 36.7; O2SAT 93
[2021-09-24] MEDS: piperacillin-tazobactam 3.375 GM in sodium chloride 0.9% (plus) 50 ML IV (05:01)
[2021-09-24 06:46] LABS: Glucose Point of Care 146 mg/dL (70-110)
[2021-09-24 08:00] VITALS: BP 148/83; PULSE 111; RESP 17; TEMP 36.5; O2SAT 90
[2021-09-24] MEDS: enoxaparin 40 mg/0.4 mL Syringe SUBCUT (08:29)
[2021-09-24] MEDS: gabapentin 300 mg Capsule 600 MG PO (08:29)
[2021-09-24] MEDS: memantine 5 mg tablet 10 MG PO (08:29)
[2021-09-24] MEDS: insulin lispro 100 unit/1 mL SUBCUT ×2 (08:29→11:59)
[2021-09-24] MEDS: metoprolol tartrate 25 mg Tablet PO (08:29)
[2021-09-24] MEDS: pantoprazole 40 mg SDV IVP (08:29)
--- NOTE | 2021-09-24 08:58 | PC.SOCIAL ---
IMM updated IMM signed and dated and copy given to patient
[2021-09-24] MEDS: dilTIAZem 60 mg Tablet PO (09:42)
--- NOTE | 2021-09-24 10:19 | P.DS_ITS ---
Discharge Providers Date of Admission: 09/21/21 05:50 Date of Discharge: September 24, 2021 Attending Provider at Admission: Amina Rasmussen DO Attending Provider at Discharge: Lee Murillo MD Primary Care Provider: Pamela Aguila MD Diagnoses at Discharge Discharge Diagnosis (1) Acute pancreatitis: Status: Acute (2) Atrial fibrillation: Status: Acute (3) Cardiomyopathy: Status: Acute Qualifiers: Cardiomyopathy type: unspecified Qualified Code(s): I42.9 - Cardiomyopathy, unspecified (4) Chronic prostatitis: Status: Acute (5) Pulmonary HTN: Status: Acute (6) Diabetes mellitus: Status: Acute Qualifiers: Diabetes mellitus type: type 2 Diabetes mellitus superintendent container terminal insulin use: without snf use Permanent problem details: patient does not endorse this diagnosis today but has high blood sugar (7) Pulmonary fibrosis: Status: Acute (8) Hyponatremia: Status: Acute (9) Dehydration: Status: Acute (10) Cholelithiasis: Status: Acute Reason for Visit Reason for Visit: N\V Chest Pain Brief History: History as per HPI: 86-year-old male who presented to ER complaining of abdominal pain which are possibly 40 hours prior to hospitalization.? He states it is localized to the subxiphoid region without any radiation.? He describes a sharp and's been intermittent since the time of onset.? As worst rated 10 out of 10 and currently rates 2 out of 10.? He did not take any medication for the pain at home.? He indicates that his last bowel movement was possibly 24 hours prior to hospitalization.? He denies diarrhea, melena, hematochezia, stat area.? He indicates that he has not been able to tolerate by mouth since the onset of the pain.? He denies fever, rigors, no nausea, vomiting.? He states that he takes NSAIDs frequently.? He presents for further evaluation Hospital Course Hospital Course Patient was admitted to hospital for further evaluation and management of abdominal pain secondary to pancreatitis. He was started on conservative zohreh atment by bowel rest and IV hydration with IV fluids. Eventually and gradually he was started on diet and has been advanced to GI soft currently which he has been tolerating well without any vomiting and with occasional episodes of abdominal pain. For etiology of pancreatitis multiple investigations were done and there was a concern for biliary obstruction secondary to gallstones which was ruled out with a negative MRCP. Patient does have cholelithiasis so it is quite possible that he had a bout of pancreatitis secondary to passage of a gallstone. Admission he was also found to have acute renal insufficiency and hyponatremia which was treated by IV hydration and he responded well to the treatment. His hospitalization was complicated by him having atrial fibrillation with rapid ventricular response which was managed by adjustment of his home medications. Patient discharged in hemodynamically stable condition with advice to continue taking brat/bland soft diet going forward for next 1 week to 10 days and advance gradually to a regular diet within next 2 weeks. He is also advised to increase his dose of Cardizem to 180 mg oral daily. He is advised to follow-up with a GI surgeon within next 2 weeks for a possible cholecystectomy to prevent further pancreatitis given extensive cholelithiasis. Discharge Data Studies Completed and Pending Completed Studies During Hospitalization Category Date Time Status CTA chest abdomen pelvis [CT angio chest abdomen pelvis Cat Scan 09/20/21 22:06 Completed ] Urgent XR chest 1V portable [id number] Urgent Exams 09/20/21 21:06 Completed MR MRCP [id number] Urgent MRI 09/21/21 01:17 Completed US gall bladder [id number] Urgent Ultrasound 09/21/21 00:05 Completed Radiology Impressions Chest X-Ray 09/20/21 21:06 IMPRESSION: No change, lungs clear Chest/Abdomen/Pelvis CTA 09/20/21 22:06 IMPRESSION: 1. No pulmonary embolism or pneumonia. 2. Mild interstitial edema. IMPRESSION: 1. Acute pancreatitis. No necrosis or pseudocyst. Small ascites. 2. Gallstones in the gallbladder. No visible obstruction. 3. Duodenal inflammation is most likely secondary. Gallbladder Ultrasound 09/21/21 00:05 IMPRESSION: 1. Mildly dilated common bile duct. Distal obstruction such as common bile duct stone not excluded. 2. Cholelithiasis. No convincing ultrasound evidence of acute cholecystitis. Cholangiopancreatography MRI 09/21/21 01:17 IMPRESSION: 1. Inflammatory changes and fluid signal intensity is seen surrounding the pancreas, adjacent to the proximal duodenum, within Gerota's fascia bilaterally and extending into the left pericolic gutter, findings compatible with acute pancreatitis. 2. Gallstones without evidence for cholecystitis. The common bile duct is normal in caliber. Laboratory Results WBC 21.6 10^3/uL (4.0-10.0) H 09/23/21 05:15 RBC 4.22 10^6/uL (4.1-5.3) 09/23/21 05:15 Hgb 13.5 g/dL (11.7-16.6) 09/23/21 05:15 Hct 42.6 % (42.0-52.0) 09/23/21 05:15 MCV 100.9 fl (80-94) H 09/23/21 05:15 MCH 32.0 pg (28.0-34.0) 09/23/21 05:15 MCHC 31.7 g/dL (30.0-36.0) 09/23/21 05:15 RDW 15.4 % (12.1-15.1) H 09/23/21 05:15 Plt Count 155 10^3/cmm (130-400) 09/23/21 05:15 MPV 9.5 fL (7.4-10.4) 09/23/21 05:15 Neut % (Auto) 88.1 % 09/23/21 05:15 Lymph % (Auto) 4.9 % 09/23/21 05:15 [place] % (Auto) 5.2 % 09/23/21 05:15 Eos % (Auto) 0.0 % 09/23/21 05:15 Baso % (Auto) 0.1 % 09/23/21 05:15 Neut # (Auto) 19.04 10^3/uL (1.8-7.7) H 09/23/21 05:15 Lymph # (Auto) 1.1 10^3/uL (0.8-4.8) 09/23/21 05:15 [place] # (Auto) 1.1 10^3/uL (0.2-0.9) H 09/23/21 05:15 Eos # (Auto) 0.0 10^3/uL (0.0-0.8) 09/23/21 05:15 Baso # (Auto) 0.0 10^3/uL (0.0-0.1) 09/23/21 05:15 Nucleated RBC % (auto) 0 % 09/23/21 05:15 Nucleated RBCs # 0.0 /100WBC 09/23/21 05:15 PT 15.40 SECONDS (12.1-14.9) H 09/21/21 05:50 INR 1.18 (0.8-1.2) 09/21/21 05:50 Sodium 133 mmol/L (136-145) L 09/23/21 07:28 Potassium 4.2 mmol/L (3.5-5.1) 09/23/21 07:28 Chloride 102 mmol/L (98-107) 09/23/21 07:28 Carbon Dioxide 16 mmol/L (22-29) L 09/23/21 07:28 Anion Gap 19.2 (5-19) H 09/23/21 07:28 BUN 24 mg/dL (8-23) H 09/23/21 07:28 Creatinine 0.8 mg/dL (0.7-1.2) 09/23/21 07:28 GFR Calculation Not Reportable 09/23/21 07:28 Glucose 161 mg/dL (65-115) H 09/23/21 07:28 POC Glucose 146 mg/dL (70-110) H 09/24/21 06:16 Calculated Osmolality 284 mOsm/kg (285-295) L 09/23/21 07:28 Calcium 7.8 mg/dL (8.5-10.5) L 09/23/21 07:28 Total Bilirubin 4.0 mg/dL (0.15-1.2) H 09/23/21 07:28 Direct Bilirubin 2.30 mg/dL (0.00-0.30) H 09/20/21 23:06 AST 56 U/L (0-40) H 09/23/21 07:28 ALT 74 U/L (0-41) H 09/23/21 07:28 Alkaline Phosphatase 106 IU/L (40-130) 09/23/21 07:28 Lactate Dehydrogenase 330 U/L (135-225) H 09/20/21 23:06 Troponin T Baseline 76 ng/L (0-15) H 09/20/21 21:10 Troponin T 120 Minute 63.25 ng/L (0-15) H 09/20/21 23:06 Delta Troponin T -12.75 ABS# (0-10) L 09/20/21 23:06 Troponin T Hi Sens 6Hr 58.56 ng/L (0-15) H 09/21/21 03:06 Troponin T Hi Sens 6Hr Delta -17.44 ng/L (0-12) L 09/21/21 03:06 Total Protein 6.1 g/dL (6.6-8.7) L 09/23/21 07:28 Albumin 3.5 g/dL (3.5-5.2) 09/23/21 07:28 Globulin 2.6 g/dL (1.3-4.6) 09/23/21 07:28 Triglycerides 82 mg/dL (0-150) 09/21/21 05:50 Cholesterol 88 mg/dL (0-200) 09/21/21 05:50 LDL Cholesterol, Calc 33 mg/dL (50-129) L 09/21/21 05:50 HDL Cholesterol 39 mg/dL (60-100) L 09/21/21 05:50 LDL/HDL Ratio 0.85 RATIO (0.00-3.22) 09/21/21 05:50 Cholesterol/HDL Ratio 2.26 mg/dL (1.0-5.00) 09/21/21 05:50 Lipase 1063 U/L (13-60) H 09/22/21 04:40 Vitamin B12 762 pg/mL (232-1245) 09/21/21 05:50 Folate 19.0 ng/mL (4.5-32.2) 09/21/21 05:50 TSH 0.94 uIU/mL (0.27-4.20) 09/21/21 05:50 Free T4 1.32 ng/dL (0.82-1.77) 09/21/21 05:50 Vitals Last Vital Signs Temp 97.7 F 09/24/21 08:00 Pulse 111 H 09/24/21 08:00 Resp 17 09/24/21 08:00 BP 148/83 09/24/21 08:00 Pulse Ox 90 09/24/21 08:00 Discharge Plan Discharge Patient Disposition: Home Health Service Condition: Stable Prescriptions: New diltiazem HCl [Cardizem CD] 180 mg capsule,extended release 24hr 180 mg PO DAILY Qty: 60 0RF Continued tramadol 50 mg tablet 50 mg PO BID 0RF meloxicam [Mobic] 15 mg tablet 15 mg PO QAM 0RF simvastatin 20 mg tablet 20 mg PO QPM 0RF lisinopril 20 mg tablet 20 mg PO QAM 0RF furosemide 20 mg tablet 20 mg PO DAILY Qty: 90 1RF metoprolol tartrate 25 mg tablet 25 mg PO BID Qty: 120 3RF gabapentin 600 mg tablet 600 mg PO BID 0RF Zyrtec 10 mg Tablet 10 mg PO DAILY PRN (Reason: Allergy Symptoms) 0RF sertraline 50 mg tablet 50 mg PO QPM 0RF memantine 10 mg tablet 10 mg PO BID 0RF Vitamin D3 125 mcg (5,000 unit) Tablet 125 mcg PO DAILY 0RF Discontinued diltiazem HCl 120 mg capsule,extended release 24hr 120 mg PO DAILY Qty: 90 3RF Discharge Orders: Discharge Order (Routine); Ordered 09/24/21 Ordered By: Lee Murillo Referrals: [facility] [Outside] Pamela Aguila MD [Primary Care Provider] - 2 weeks Siddhartha Russell MD [Physician] - 2 weeks (Cholecystectomy secondary to extensive cholelithiasis causing bouts of pancreatitis) Discharge Diet: Advance as tolerated Discharge Activity: Resume usual activity and Increase activity as tolerated Patient Instructions: Opioid Safety, Pancreatitis (DC), GI (Gastrointestinal) Soft Diet (DC) Activity Restrictions/Additional Instructions: Dose of Cardizem has been increased from 120 mg oral daily to 180 mg for now. Please follow-up with surgeon within next 2 weeks for possible cholecystectomy. For diet please advance gradually. For now take brat/soft diet including bananas, applesauce, toast, mashed potatoes, broth going forward for next 1 week to 10 days and advance gradually as tolerated. Please take multiple small meals. Discharge Attestations Time Spent in Discharge Care*: greater than 30 min Specific Discharge Activities: educating patient, educating and/or supporting family/caregiver, discussing with case manager specialist/social workers/dc planners, documenting/other paperwork and evaluating patient/reviewing data Status at Discharge: Cognitive status at discharge: cognitively intact , Behavioral status at discharge: cooperative , Functional status at discharge: uses cane/walker , Overall status at discharge: patient is progressing back to baseline Quality Metrics Clinical Quality Measures [ No reported AMI, CVA or VTE this stay] Coding Level of Care Code Acute Chg FW DC note Diagnoses Acute pancreatitis K85.90 Atrial fibrillation I48.91 Cardiomyopathy I42.9 Cardiomyopathy type: unspecified Chronic prostatitis N41.1 Pulmonary HTN I27.20 Diabetes mellitus E11.9 Diabetes mellitus type: type 2 Diabetes mellitus superintendent container terminal insulin use: without superintendent container terminal use Pulmonary fibrosis J84.10 Hyponatremia E87.1 Dehydration E86.0 Cholelithiasis K80.20
[2021-09-24 11:48] LABS: Glucose Point of Care 235 mg/dL (70-110)
== END 2021-09-24 12:32 | disposition home health service (06) | DRG 439 ==
LOC: ER 09-21 05:29 → MEDSURG 09-21 05:51
PROVIDERS: Emergency Medicine; Internal Medicine; Admitting Provider Internal Medicine; Emergency Provider Emergency Medicine; PCP Internal Medicine; Visit Provider Student in an Organized Health Care Education/Training Program
DX: K85.90 Acute pancreatitis without necrosis or infection, unspecified (principal); N13.8 Other obstructive and reflux uropathy; N17.9 Acute kidney failure, unspecified; E87.1 Hypo-osmolality and hyponatremia; I47.1 Supraventricular tachycardia; I42.9 Cardiomyopathy, unspecified; I10 Essential (primary) hypertension; E11.42 Type 2 diabetes mellitus with diabetic polyneuropathy; N40.1 Benign prostatic hyperplasia with lower urinary tract symptoms; N41.1 Chronic prostatitis; I48.91 Unspecified atrial fibrillation; K80.20 Calculus of gallbladder without cholecystitis without obstruction; F32.A Depression, unspecified; F03.90 Unspecified dementia, unspecified severity, without behavioral disturbance, psychotic disturbance, mood disturbance, and anxiety; I27.20 Pulmonary hypertension, unspecified; E78.5 Hyperlipidemia, unspecified; J84.10 Pulmonary fibrosis, unspecified; I07.1 Rheumatic tricuspid insufficiency; E86.0 Dehydration; Z79.891 Long term (current) use of opiate analgesic
CPT/HCPCS: 36415; 36416; 51702; 71045; 71275; 74174; 74176; 74181; 76705; 80048; 80053; 80061; 80076; 81001; 82306; 82310; 82533; 82607; 82746; 82962; 83605; 83615; 83690; 83735; 83880; 83930; 83935; 83970; 84145; 84295; 84300; 84439; 84443; 84478; 84484; 84550; 85025; 85610; 87086; 87426; 87493; 92526; 92610; 93005; 96365; 96372; 96375; 97110; 97116; 97161; 97530; 99285; C9113; J0610; J1644; J1650; J1815; J1940; J2270; J2405; J2543; J3490; J7030; J7040; P9041; Q9967

== ENCOUNTER 2021-09-26 15:26 | Inpatient (IN) | payer MEDICARE, SELFPAY ==
[2021-09-26 15:35] VITALS: BP 101/73; PULSE 83; RESP 19; O2SAT 93
--- NOTE | 2021-09-26 15:42 | CTR_ITS ---
PROCEDURE INFORMATION: Exam: CT Abdomen And Pelvis Without Contrast Exam date and time: 09/26/2021 4:04 PM Age: 86 years old Clinical indication: Abdominal pain; Patient HX: C/O worsening weakness TECHNIQUE: Imaging protocol: Computed tomography of the abdomen and pelvis without contrast. Radiation optimization: All CT scans at this facility use at least one of these dose optimization techniques: automated exposure control; mA and/or kV adjustment per patient size (includes targeted exams where dose is matched to clinical indication); or iterative reconstruction. COMPARISON: MR MRCP [id number] 09/21/2021 3:41 AM RADIATION DOSE METRICS: Total DLP (mGy-cm): 1875.21 FINDINGS: Limitations: Evaluation of solid organs and vasculature is limited without intravenous contrast. Pleural spaces: Interval development of small/moderate bilateral pleural effusions with compressive atelectasis in the bilateral lower lobes. Heart: Stable moderate enlargement of the visualized portions of the heart. Mild atherosclerotic calcification in the visualized coronary arteries. Liver: The visualized liver is unremarkable. Gallbladder and bile ducts: The gallbladder is contracted. Multiple calcified stones in the gallbladder are stable. No gallbladder wall thickening. No biliary ductal dilatation. Pancreas: Enlargement of the pancreas. Extensive peripancreatic inflammatory change and free fluid, consistent with severe acute pancreatitis. Spleen: The spleen is unremarkable. Adrenal glands: The right and left adrenal glands are unremarkable. Kidneys and ureters: The right and left kidneys are unremarkable. The right and left ureters are unremarkable. Stomach and bowel: Scattered diverticula in the colon. No evidence for diverticulitis. No acute abnormality in the small bowel. Appendix: Appendix not definitely visualized. No inflammatory changes in the pericecal region however. Intraperitoneal space: No free intraperitoneal air. No ascites. No loculated fluid collections to suggest an abscess. Vasculature: Moderate atherosclerotic changes in the visualized arteries. No evidence for aortic aneurysm. Lymph nodes: No lymphadenopathy. Urinary bladder: Unremarkable as visualized. Reproductive: The prostate gland is mildly enlarged. Bones/joints: Degenerative changes in the spine, sacroiliac joints, and hips. Mild spinal canal stenosis at L1-L2 through L5-S1. Multilevel foraminal stenosis of varying severity in the visualized spine. Straightening of the lumbar spine. This may be due to positioning versus muscle spasm. 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 Soft tissues: Interval development of mild body wall edema. CT/CT abdomen pelvis wo con [id number] IMPRESSION: 1. Stable changes consistent with severe acute pancreatitis. Evaluation for pancreatic necrosis cannot be performed without intravenous contrast. 2. Interval development of small/moderate bilateral pleural effusions with compressive atelectasis in the bilateral lower lobes. 3. The gallbladder is contracted. Multiple calcified stones in the gallbladder are stable. 4. Scattered diverticula in the colon. No evidence for diverticulitis. 5. Interval development of mild body wall edema. 6. Incidental/nonacute findings are listed in the report.
--- NOTE | 2021-09-26 15:42 | ECG_ITS ---
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 Measurements Intervals [place] Rate: 79 P: MD: QRS: -5 QRSD: 121 T: 63 QT: 402 QTc: 463 Interpretive Statements ATRIAL FIBRILLATION MODERATE INTRAVENTRICULAR CONDUCTION DELAY [105+ ms QRS DURATION, 80+ ms Q/S IN V1/V2, NO Q AND 60+ ms R IN I/aVL/V5/V6] Compared to ECG 09/20/2021 23:36:23 Atrial flutter no longer present Left-axis deviation no longer present Myocardial infarct finding no longer present Electronically Signed On 09-26-2021 20:15:08 CDT by Arun Washington M.D. [email or web address]
--- NOTE | 2021-09-26 15:45 | ED_ITS ---
HPI - Weakness General: Chief complaint: Weakness Stated complaint: WEAKNESS Time Seen by Provider: 09/26/21 15:28 Source: patient Mode of arrival: EMS History of Present Illness: 86-year-old male presents with significant weakness. He is generally been getting weaker he told me he had been getting weaker over the last couple of weeks however he recently was hospitalized for pancreatitis and he was discharged home just 2 days ago since then he has had recurrent recurrent persistent diarrhea he denies any hematochezia or melena. Denies any dysuria urgency or frequency he is very weak in the room he cannot really localize anything for me family gave most of the history and they arrived later. MD Complaint: generalized weakness Onset (ago): unknown Location: generalized Migration: none Severity: mild Relieving factors: none Exacerbating factors: none Associated symptoms: Denies chest pain, chills, confusion, diaphoresis, dysuria, easy bruising, fever(s), headache(s), short of breath, syncope or vomiting Review of Systems Const: Denies: fever(s), chills or diaphoresis ENMT: Denies: throat pain, ear or mastoid pain, nasal discharge or nasal congestion Card: Denies: chest pain or syncope Resp: Denies: dyspnea, productive cough or non-productive cough GI: Denies: vomiting : Denies: dysuria Musc: Reports: back pain Skin/Breast: Denies: rash or pruritus Neuro: Denies: headache(s) or confusion Leo/Lymph: Denies: easy bruising PFSH ED PFSH: Medical History BPH loc w urin obs/LUTS Cardiomyopathy Chronic prostatitis Dehydration Diabetes mellitus patient does not endorse this diagnosis today but has high blood sugar Family history of prostate cancer Hypertension Hyponatremia Osteoarthritis Pulmonary fibrosis Pulmonary HTN Surgical History H/O arthroscopy of right knee History of back surgery Family History Mother , at age 81 Cancer lung Father , at age 82 Cancer prostate Social History Second hand smoke exposure: No Alcohol intake: never Lives independently: Yes Household members: spouse Marital status: Current occupational status: retired History of recent travel: No Current gender identity: Male Physical Exam Const: EXAM LIMITATIONS: altered mental status (Mildly confused) GENERAL APPEARANCE: cooperative and comfortable ORIENTATION/CONSCIOUSNESS: Yes awake HENMT: COMMON NORMALS: normocephalic and atraumatic HEAD & SCALP: normocephalic and atraumatic Eye: COMMON NORMALS: Equal, round and reactive pupils present, EOMs intact bilaterally, conjunctivae normal and no scleral icterus CONJUNCTIVA: Yes conjunctivae normal PUPIL: Yes Equal, round and reactive pupils present Neck/C-Spine: COMMON NORMALS: full ROM, no lymphadenopathy, supple and no JVD Lymph: LYMPHATIC: no lymphadenopathy noted and no lymphedema noted Resp: COMMON NORMALS: normal respiratory effort, No retractions, No use of accessory muscles and clear to auscultation bilaterally AUSCULTATION: clear to auscultation bilaterally Cardio: COMMON NORMALS: no JVD, regular rate, regular rhythm and No murmurs present (Cardio) RATE: regular rate RHYTHM: regular rhythm GI: COMMON NORMALS: Soft to palpation and No hepatosplenomegaly present AUSCULTATION: Yes normoactive bowel sounds PALPATION: Yes Soft to palpation, No Tenderness to palpation present (GI), No Guarding due to palpation present (GI) and Yes No hepatosplenomegaly present Extremity: COMMON NORMALS: normal to inspection, capillary refill normal, no clubbing, cyanosis or edema, no calf tenderness and no pedal edema Skin: COMMON NORMALS: no rashes or lesions noted GENERAL SKIN EXAM: no rashes or lesions noted Course Vital Signs: Vital signs: Vital Signs Pulse Rate 83 09/26/21 15:35 Respiratory Rate 19 H 09/26/21 15:35 Blood Pressure 101/73 09/26/21 15:35 Pulse Oximetry 93 09/26/21 15:35 MDM - Weakness Medical Decision Making Patient has hyponatremia which I think is contributing to his problems. Condition generalized decline. We will test him for C. difficile discussed with hospitalist orders written Medical Records I reviewed the patient's medical records. Lab Data I reviewed the patient's lab results. : 09/26/21 16:28 09/26/21 16:28 Radiology Impressions Abdomen/Pelvis CT 09/26/21 15:42 IMPRESSION: 1. Stable changes consistent with severe acute pancreatitis. Evaluation for pancreatic necrosis cannot be performed without intravenous contrast. 2. Interval development of small/moderate bilateral pleural effusions with compressive atelectasis in the bilateral lower lobes. 3. The gallbladder is contracted. Multiple calcified stones in the gallbladder are stable. 4. Scattered diverticula in the colon. No evidence for diverticulitis. 5. Interval development of mild body wall edema. 6. Incidental/nonacute findings are listed in the report. Laboratory Results WBC 15.8 10^3/uL (4.0-10.0) H 09/26/21 16:28 RBC 3.81 10^6/uL (4.1-5.3) L 09/26/21 16:28 Hgb 11.8 g/dL (11.7-16.6) 09/26/21 16: Hct 36.2 % (42.0-52.0) L 09/26/21 16:28 MCV 95.0 fl (80-94) H 09/26/21 16:28 MCH 31.0 pg (28.0-34.0) 09/26/21 16:28 MCHC 32.6 g/dL (30.0-36.0) 09/26/21 16:28 RDW 15.0 % (12.1-15.1) 09/26/21 16:28 Plt Count 174 10^3/cmm (130-400) 09/26/21 16:28 MPV 9.6 fL (7.4-10.4) 09/26/21 16: Neut % (Auto) 82.0 % 09/26/21 16: Lymph % (Auto) 5.8 % 09/26/21 16:28 [place] % (Auto) 5.7 % 09/26/21 16:28 Eos % (Auto) 1.9 % 09/26/21 16: Baso % (Auto) 0.2 % 09/26/21 16:28 Neut # (Auto) 12.99 10^3/uL (1.8-7.7) H 09/26/21 16:28 Lymph # (Auto) 0.9 10^3/uL (0.8-4.8) 09/26/21 16:28 [place] # (Auto) 0.9 10^3/uL (0.2-0.9) 09/26/21 16:28 Eos # (Auto) 0.3 10^3/uL (0.0-0.8) 09/26/21 16: Baso # (Auto) 0.0 10^3/uL (0.0-0.1) 09/26/21 16: Nucleated RBC % (auto) 0 % 09/26/21 16: Nucleated RBCs # 0.0 /100WBC 09/26/21 16: Sodium 121 mmol/L (136-145) L 09/26/21 16: Potassium 3.9 mmol/L (3.5-5.1) 09/26/21 16: Chloride 87 mmol/L (98-107) L 09/26/21 16: Carbon Dioxide 20 mmol/L (22-29) L 09/26/21 16: Anion Gap 17.9 (5-19) 09/26/21 16: BUN 40 mg/dL (8-23) H 09/26/21 16: Creatinine 1.6 mg/dL (0.7-1.2) H 09/26/21 16: GFR Calculation Not Reportable 09/26/21 16: Glucose 191 mg/dL (65-115) H 09/26/21 16: Calculated Osmolality 267 mOsm/kg (285-295) L 09/26/21 16: Calcium 7.5 mg/dL (8.5-10.5) L 09/26/21 16: Total Bilirubin 1.8 mg/dL (0.15-1.2) H 09/26/21 16: AST 40 U/L (0-40) 09/26/21 16: ALT 46 U/L (0-41) H 09/26/21 16:28 Alkaline Phosphatase 125 IU/L (40-130) 09/26/21 16:28 Total Protein 6.0 g/dL (6.6-8.7) L 09/26/21 16: Albumin 3.3 g/dL (3.5-5.2) L 09/26/21 16: Globulin 2.7 g/dL (1.3-4.6) 09/26/21 16: Lipase 184 U/L (13-60) H 09/26/21 16:28 Discharge Plan Discharge Condition: Stable Prescriptions: No Action tramadol 50 mg tablet 50 mg PO BID PRN (Reason: Pain) 0RF meloxicam [Mobic] 15 mg tablet 15 mg PO QAM 0RF simvastatin 20 mg tablet 20 mg PO QPM 0RF lisinopril 20 mg tablet 20 mg PO QAM 0RF furosemide 20 mg tablet 20 mg PO DAILY Qty: 90 1RF metoprolol tartrate 25 mg tablet 25 mg PO BID Qty: 120 3RF gabapentin 600 mg tablet 600 mg PO BID 0RF cetirizine [Zyrtec] 10 mg Tablet 10 mg PO DAILY PRN (Reason: Allergy Symptoms) 0RF sertraline 50 mg tablet 50 mg PO QPM 0RF memantine 10 mg tablet 10 mg PO BID 0RF cholecalciferol (vitamin D3) [Vitamin D3] 125 mcg (5,000 unit) Tablet 125 mcg PO DAILY 0RF diltiazem HCl [Cardizem CD] 180 mg capsule,extended release 24hr 180 mg PO DAILY Qty: 60 0RF Referrals: Pamela Aguila MD [Primary Care Provider] - Coding Level of Care Code ED Retirement Benefits Specialist for Chg 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
--- NOTE | 2021-09-26 15:51 | PC.NURSE ---
Continuous cardiac, BP, and SpO2 monitoring initiated.
[2021-09-26 16:36] LABS: Basophils % 0.2 %; Eosinophils # 0.3 10^3/uL (0.0-0.8); Eosinophils % 1.9 %; Hematocrit 36.2 % (42.0-52.0); Hemoglobin 11.8 g/dL (11.7-16.6); Lymphocytes # 0.9 10^3/uL (0.8-4.8); Lymphocytes % 5.8 %; Mean Corpuscular HGB Conc 32.6 g/dL (30.0-36.0); Mean Platelet Volume 9.6 fL (7.4-10.4); Monocytes # 0.9 10^3/uL (0.2-0.9); Monocytes % 5.7 %; Neutrophils # 12.99 10^3/uL (1.8-7.7); Nucleated Red Blood Cells % 0 %; Platelet Count 174 10^3/cmm (130-400); Red Blood Count 3.81 10^6/uL (4.1-5.3); White Blood Count 15.8 10^3/uL (4.0-10.0)
[2021-09-26 16:52] LABS: Alanine Aminotransferase 46 U/L (0-41); Albumin Level 3.3 g/dL (3.5-5.2); Alkaline Phosphatase 125 IU/L (40-130); Anion Gap 17.9 (5-19); Aspartate Amino Transferase 40 U/L (0-40); Blood Urea Nitrogen 40 mg/dL (8-23); Calcium 7.5 mg/dL (8.5-10.5); Carbon Dioxide 20 mmol/L (22-29); Chloride 87 mmol/L (98-107); Globulin 2.7 g/dL (1.3-4.6); Glucose 191 mg/dL (65-115); Lipase 184 U/L (13-60); Osmolality Calculated 267 mOsm/kg (285-295); Potassium 3.9 mmol/L (3.5-5.1); Sodium 121 mmol/L (136-145); Total Bilirubin 1.8 mg/dL (0.15-1.2)
--- NOTE | 2021-09-26 18:12 | PM.HP ---
Providers/Chief Complaint Admitting Physician: Tiki Verma MD Primary Care Provider: Pamela Aguila MD Chief Complaint: WEAKNESS History of Present Illness Chalo Hartman is a 86 year old male who was discharged 2 days ago after management of pancreatitis. His etiology of pancreatitis was thought to be passage of gallstones. Patient is presenting today for worsening of generalized weakness and fatigue. is stating that he has been sleeping for last 20 hours. No strokelike features were found. He is verbally redirectable however very drowsy and fatigued. He has had 5-6 episodes of diarrhea. No episode of chest pain, shortness of breath, fever or vomiting. He is extremely dehydrated, diagnostics in the ER revealed severe hyponatremia patient is extremely drowsy, when I woke him up he was able to tell me his date of , name name of his and his son He is full code CT abdomen pelvis without contrast showed sequelae of pancreatitis however necrosis has not been ruled out, he is afebrile, lipase not significantly high, leukocytosis noted Started fluids, requested lactic acid, check C. difficile, MARTIN Review of Systems Const: Denies: fever(s) Eyes: Denies: change in vision ENMT: Denies: throat pain Card: Denies: chest pain Resp: Denies: dyspnea GI: Reports: abdominal pain, nausea and diarrhea : Denies: flank pain Musc: Denies: neck pain Skin/Breast: Denies: rash or new lesions Neuro: Reports: confusion Psych: Denies: anxiety Endo: Denies: polyuria Leo/Lymph: Denies: easy bruising All/Imm: Denies: urticaria Medications/Allergies Home Medications Medication Instructions Recorded Confirmed Last Taken Type tramadol 50 mg tablet 50 mg PO BID PRN 10/31/19 09/26/21 09/26/21 History lisinopril 20 mg tablet 20 mg PO QAM 04/10/20 09/26/21 09/26/21 History furosemide 20 mg tablet 20 mg PO DAILY #90 tab 10/21/20 09/26/21 09/26/21 Rx meloxicam 15 mg tablet (Mobic) 15 mg PO QAM 10/30/20 09/26/21 09/26/21 History simvastatin 20 mg tablet 20 mg PO QPM 10/30/20 09/26/21 09/25/21 History metoprolol tartrate 25 mg tablet 25 mg PO BID #120 tab 08/07/21 09/26/21 09/26/21 Rx cetirizine 10 mg tablet (Zyrtec) 10 mg PO DAILY PRN 09/21/21 09/26/21 Unknown History cholecalciferol (vitamin D3) 125 125 mcg PO DAILY 09/21/21 09/26/21 09/26/21 History mcg (5,000 unit) tablet (Vitamin D3) gabapentin 600 mg tablet 600 mg PO BID 09/21/21 09/26/21 09/26/21 History memantine 10 mg tablet 10 mg PO BID 09/21/21 09/26/21 09/26/21 History sertraline 50 mg tablet 50 mg PO QPM 09/21/21 09/26/21 09/25/21 History diltiazem HCl 180 mg 180 mg PO DAILY #60 cap 09/24/21 09/26/21 09/26/21 Rx capsule,extended release 24 hr (Cardizem CD) Allergies Allergy/AdvReac Type Severity Reaction Status Date / Time No Known Allergies Allergy Verified 08/28/21 10:28 PFSH Acute PFSH: Medical History BPH loc w urin obs/LUTS Cardiomyopathy Chronic prostatitis Dehydration Diabetes mellitus patient does not endorse this diagnosis today but has high blood sugar Family history of prostate cancer Hypertension Hyponatremia Osteoarthritis Pulmonary fibrosis Pulmonary HTN Surgical History H/O arthroscopy of right knee History of back surgery Family History Mother , at age 81 Cancer lung Father , at age 82 Cancer prostate Social History Second hand smoke exposure: No Alcohol intake: never Lives independently: Yes Household members: spouse Marital status: Current occupational status: retired History of recent travel: No Current gender identity: Male Vitals/I&O/Wt Last Vital Signs Pulse 83 09/26/21 15:35 Resp 19 H 09/26/21 15:35 BP 101/73 09/26/21 15:35 Pulse Ox 93 09/26/21 15:35 Physical Exam Narrative: early male Very drowsy and fatigued However no active signs of stroke Verbally redirectable Alert and oriented He goes back to sleep right away during my interview after answering my questions appropriately is at the bedside Patient clinically does look fluid overloaded Abdomen is distended no signs of peritonitis guarding or rigidity Abdominal wall edema Lower extremity 1+ edema Patient does not look fluid overloaded clinically He is able to follow commands NIH 0 Currently saturating well on room air No active stridor or wheezing or respiratory distress Data : 09/26/21 16:28 09/26/21 16:28 A&P Assessment and plan (1) Cholelithiasis: Status: Acute (2) Acute pancreatitis: Status: Acute (3) BPH loc w urin obs/LUTS: Status: Acute (4) Atrial fibrillation: Status: Acute (5) Metabolic encephalopathy: Status: Acute (6) Hyponatremia syndrome: Status: Acute (7) MARTIN (acute kidney injury): Status: Acute Plan Acute severe hyponatremia Clinical signs of fluid overload however intravascular depletion secondary to pancreatitis Gentle fluid hydration He does have third spacing with pleural effusion, abdominal wall edema Start NS at 50 cc/h For acute hyponatremia Target sodium correction goal 6 to 9 mEq per 24 hours Currently patient is very drowsy and fatigued Monitor closely for airway protection and neurological status change Neurochecks No active signs of sepsis or necrosis However CT scan ordered without contrast Threshold will stay low to add Zosyn MARTIN related to dehydration: Continue IV fluids Hold nephrotoxic agents At home he does take lisinopril, meloxicam which I would hold for now Conservative management Patient is full code Clear liquid diet Check C. 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
[2021-09-26 18:56] LABS: Triglycerides 149 mg/dL (0-150)
[2021-09-26 19:03] LABS: Procalcitonin 0.65 ng/mL (0-0.5)
[2021-09-26] MEDS: sodium chloride 0.9% 1,000 ML 30 ML IV (19:30)
[2021-09-26] MEDS: heparin 5,000 unit/mL INJ 1 mL 5000 UNIT SUBCUT ×2 (19:32→19:33)
[2021-09-26 19:42] VITALS: BP 129/63; PULSE 80; RESP 19; TEMP 36.6; O2SAT 94; BMI 27.1
[2021-09-26 19:49] LABS: Sodium 121 mmol/L (136-145)
[2021-09-26 20:10] VITALS: PULSE 96
[2021-09-26 20:41] VITALS: PULSE 93; RESP 18; O2SAT 95
[2021-09-26 22:00] VITALS: PULSE 102
[2021-09-26 22:07] VITALS: BP 123/69; PULSE 95; RESP 19; TEMP 36.6; O2SAT 99
[2021-09-26 23:27] LABS: Sodium 121 mmol/L (136-145)
[2021-09-27] VITALS (10 sets, daily range): BP systolic 117–130; BP diastolic 71–80; PULSE 67–107; RESP 16–19; TEMP 36.2–36.8; O2SAT 92–96
--- NOTE | 2021-09-27 03:16 | PC.NURSE ---
Patient up to bedside commode with assist of two using walker. Total assist and shuffled feet. No bm, did urinate 200ml.
[2021-09-27 04:59] LABS: Basophils # 0.1 10^3/uL (0.0-0.1); Basophils % 0.3 %; Eosinophils # 0.2 10^3/uL (0.0-0.8); Eosinophils % 1.2 %; Hematocrit 36.3 % (42.0-52.0); Hemoglobin 11.8 g/dL (11.7-16.6); Lymphocytes # 0.7 10^3/uL (0.8-4.8); Lymphocytes % 4.3 %; Mean Corpuscular HGB Conc 32.5 g/dL (30.0-36.0); Mean Corpuscular Hemoglobin 31.4 pg (28.0-34.0); Mean Corpuscular Volume 96.5 fl (80-94); Mean Platelet Volume 9.6 fL (7.4-10.4); Monocytes # 0.9 10^3/uL (0.2-0.9); Monocytes % 5.4 %; Neutrophils # 14.86 10^3/uL (1.8-7.7); Neutrophils % 85.9 %; Nucleated Red Blood Cells % 0 %; Platelet Count 187 10^3/cmm (130-400); Red Blood Count 3.76 10^6/uL (4.1-5.3); Red Cell Distribution Width 14.6 % (12.1-15.1); White Blood Count 17.3 10^3/uL (4.0-10.0)
[2021-09-27 05:18] LABS: Lactate (Lactic Acid level) 1.3 mmol/L (0.5-2.2)
[2021-09-27 05:19] LABS: Magnesium 2.1 mg/dL (1.7-2.3)
[2021-09-27 05:20] LABS: Alanine Aminotransferase 37 U/L (0-41); Albumin Level 2.8 g/dL (3.5-5.2); Alkaline Phosphatase 113 IU/L (40-130); Anion Gap 17.4 (5-19); Aspartate Amino Transferase 30 U/L (0-40); Blood Urea Nitrogen 40 mg/dL (8-23); Calcium 7.5 mg/dL (8.5-10.5); Carbon Dioxide 20 mmol/L (22-29); Chloride 88 mmol/L (98-107); Globulin 2.7 g/dL (1.3-4.6); Glucose 159 mg/dL (65-115); Lipase 171 U/L (13-60); Osmolality Calculated 265 mOsm/kg (285-295); Potassium 4.4 mmol/L (3.5-5.1); Sodium 121 mmol/L (136-145); Total Bilirubin 1.8 mg/dL (0.15-1.2); Total Protein 5.5 g/dL (6.6-8.7)
[2021-09-27] MEDS: heparin 5,000 unit/mL INJ 1 mL 5000 UNIT SUBCUT (05:40)
[2021-09-27] MEDS: pantoprazole 40 mg SDV IVP ×2 (08:34→17:53)
--- NOTE | 2021-09-27 09:35 | P.PN_ITS ---
Subjective Subjective: 86-year male who was discharged on 09/24 after management of gallstone induced pancreatitis. He came back for generalized weakness fatigue and confusion. He was diagnosed with severe hyponatremia in the ER. He has been suffering from poor appetite, recurrent emesis at home. His mentation improved slightly with IV fluid hydration, I am treating him as acute hyponatremia as he was recently discharged from the hospital with normal sodium level. He does have typical signs and symptoms of hyponatremia. And carefully hydrating him with low-maintenance rate normal saline. No active signs of s eizure. No active strokelike features. He does have significant abdominal wall edema, no signs of septic or necrotic pancreas however CT scan of abdomen was done without contrast. He is tolerating clear liquid diet. Might need rehab at the end. Son is in agreement. He carries history of ectopic atrial beats, he was put on Eliquis which was discontinued when he was diagnosed with ectopic atrial beat instead of A. fib. This morning patient is awake and alert he was eating his clear liquid diet/breakfast No worsening abdominal pain, no active emesis His mentation is much more improved as compared to yesterday Son is at the bedside Is afebrile Blood pressure is normal Vitals/I&O/Wt Last Vital Signs Temp 97.8 F 09/27/21 07:28 Pulse 100 09/27/21 08:00 Resp 16 09/27/21 08:00 BP 121/71 09/27/21 07:28 Pulse Ox 95 09/27/21 08:00 09/26/21 09/27/21 09/27/21 22:59 06:59 14:59 Intake Total 520 / 520 Output Total 200 / 200 500 / 700 350 / 350 Balance -200 / -200 20 / -180 -350 / -350 Weight last 48 hrs Weight 90.718 kg Physical Exam Narrative: Pleasant cooperative male NIH 0 Fatigue and lethargy seem slightly improved since yesterday Awake and alert Eating breakfast Does have generalized weakness Neuro, PERRLA S1, S2 variable Abdomen is tense, abdominal wall edema Bowel sound present No tenderness on palpation Mild edema of lower extremities noted as well Saturating well on room air Data : 09/27/21 04:35 09/27/21 04:35 A&P Assessment and plan (1) Hyponatremia syndrome: Status: Acute (2) MARTIN (acute kidney injury): Status: Acute (3) Metabolic encephalopathy: Status: Acute (4) Cholelithiasis: Status: Acute (5) BPH loc w urin obs/LUTS: Status: Acute (6) Atrial fibrillation: Status: Acute Plan 86-year male who was recently discharged from the hospital came back for generalized weakness in the ER he was diagnosed with severe hyponatremia Severe acute hyponatremia He was put on normal saline 30 cc/h, I will increase rate to 75 cc/h His mentation has significantly improved since yesterday PT evaluation Family requesting rehab placement 1 sodium is corrected Urine osmolarity, serum osmolarity, TSH is normal Clinically he does look hypervolemic with body wall edema and lower extremity trace edema He is third spacing which is evident on CT abdomen pelvis as well Albumin 2.8: We will give 1 bag today hyponatremia most likely secondary to use of Lasix, with third spacing due to pancreatitis and low albumin Check cortisol level and uric acid Gallstone induced pancreatitis No active signs or symptoms Lipase trending down No signs of necrotic pancreas, no signs of sepsis CT scan of abdomen was done without contrast In case of any febrile events or sepsis my threshold will stay low for addition of Zosyn and repeating CT scan Hypocalcemia due to pancreatitis we will give 1 g calcium gluconate MARTIN due to intravascular depletion anticipate improvement with IV fluid hydration, Place Acosta catheter for accurate urine output, he does have history of BPH and urine retention History of A. fib, he was taken off Eliquis when he was diagnosed with ectopic atrial beat, his EKG is consistent with A. 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
[2021-09-27] MEDS: calcium gluconate 0.9% NaCL 1 GM/50 ML PREMIX IV (10:02)
[2021-09-27] MEDS: metoprolol tartrate 25 mg Tablet PO ×2 (10:05→17:25)
[2021-09-27 10:57] LABS: Glucose Point of Care 269 mg/dL (70-110)
[2021-09-27] MEDS: albumin 12.5 GM/250 ML VIAL IV (11:43)
[2021-09-27] MEDS: insulin lispro 100 unit/1 mL SUBCUT ×3 (12:12→21:17)
[2021-09-27 12:19] LABS: 25 Hydroxy Vitamin D 69 ng/mL (30-100); NT Pro B Type Natriuretic Pept 6220 pg/mL (0-450); Sodium 122 mmol/L (136-145); Uric Acid 5.2 mg/dL (3.4-7.0)
[2021-09-27 12:56] LABS: Calcium 7.8 mg/dL (8.5-10.5)
[2021-09-27 13:01] LABS: Cortisol Random 16.93 ug/dL (2.47-19.5)
[2021-09-27 13:03] LABS: Parathyroid Hormone 32.9 pg/mL (15-65)
[2021-09-27] MEDS: FUROsemide 10 mg/mL SDV 4mL 40 MG IVP (14:04)
[2021-09-27 17:08] LABS: Glucose Point of Care 279 mg/dL (70-110)
[2021-09-27 20:46] LABS: Sodium 119 mmol/L (136-145)
[2021-09-27 21:01] LABS: Glucose Point of Care 221 mg/dL (70-110)
[2021-09-27] MEDS: apixaban 5 mg Tablet 2.5 MG PO (21:17)
[2021-09-27 22:45] LABS: Sodium 121 mmol/L (136-145)
[2021-09-28] VITALS (11 sets, daily range): BP systolic 126–165; BP diastolic 54–86; PULSE 71–106; RESP 16–20; TEMP 36.3–36.9; O2SAT 91–100
[2021-09-28 04:20] LABS: Basophils # 0.1 10^3/uL (0.0-0.1); Basophils % 0.5 %; Eosinophils # 0.2 10^3/uL (0.0-0.8); Hematocrit 43.6 % (42.0-52.0); Hemoglobin 12.9 g/dL (11.7-16.6); Lymphocytes # 0.7 10^3/uL (0.8-4.8); Lymphocytes % 4.2 %; Mean Corpuscular HGB Conc 29.6 g/dL (30.0-36.0); Mean Corpuscular Hemoglobin 31.8 pg (28.0-34.0); Mean Corpuscular Volume 107.4 fl (80-94); Mean Platelet Volume 10.8 fL (7.4-10.4); Monocytes # 0.9 10^3/uL (0.2-0.9); Monocytes % 4.8 %; Neutrophils # 15.34 10^3/uL (1.8-7.7); Neutrophils % 87.3 %; Nucleated Red Blood Cells % 0 %; Platelet Count 154 10^3/cmm (130-400); Red Blood Count 4.06 10^6/uL (4.1-5.3); Red Cell Distribution Width 14.8 % (12.1-15.1); White Blood Count 17.6 10^3/uL (4.0-10.0)
[2021-09-28 05:40] LABS: Alanine Aminotransferase 33 U/L (0-41); Albumin Level 2.7 g/dL (3.5-5.2); Alkaline Phosphatase 131 IU/L (40-130); Anion Gap 18.7 (5-19); Aspartate Amino Transferase 36 U/L (0-40); Blood Urea Nitrogen 40 mg/dL (8-23); Calcium 8.2 mg/dL (8.5-10.5); Carbon Dioxide 18 mmol/L (22-29); Chloride 90 mmol/L (98-107); Globulin 3.4 g/dL (1.3-4.6); Glucose 138 mg/dL (65-115); Lipase 207 U/L (13-60); Osmolality Calculated 268 mOsm/kg (285-295); Potassium 3.7 mmol/L (3.5-5.1); Sodium 123 mmol/L (136-145); Total Bilirubin 1.5 mg/dL (0.15-1.2); Total Protein 6.1 g/dL (6.6-8.7)
[2021-09-28] MEDS: sodium chloride 1 gm Tablet 2 GM PO ×2 (10:06→18:13)
[2021-09-28] MEDS: metoprolol tartrate 25 mg Tablet PO ×2 (10:06→18:13)
[2021-09-28] MEDS: dilTIAZem ER (24HR) 180 mg Capsule PO (10:06)
[2021-09-28] MEDS: pantoprazole 40 mg SDV IVP ×2 (10:07→18:13)
--- NOTE | 2021-09-28 10:26 | PC.CHAP ---
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 [] Patient/Family/Request visit [] Outpatient visit [] Follow-up visit [] Physician referral [] Code/Alert [x] Routine visit [] Staff referral [] Actively dying [] Patient sleeping [] Family support [] [] Out of room [] Palliative care [] [] Receiving care in room [] Pre-surgical visit [] Trauma [] Long length of stay [] ICU visit [] Other: Relational/Emotional Strength [x] Patient feels connected with others/family/visitors/staff [] Distress [] Loneliness/isolation [] Abandonment Spirituality of Patient [x] Person of Dian [x] Attends Lutheran of their Dian [x] Believes in Prayer [] Reads Bible or Buddhist materials [] There are Spiritual issues to be addressed Residential Care Officer Interventions [x] Prayer [x] Active listening [x] Non-anxious presence [] Spiritual/emotional support [] Crisis/trauma care [] Spiritual counseling [] Bereavement support [] Provided bereavement packet [] Provided Bible/devotional materials [] Provided toy/stuffed animal, coloring book to patient or family member [] Provided Communion [] Anointing/[place] [] Salvation [x] Completed spiritual assessment [] Other: Impact on Illness or Injury [] Angry [] Fearful [] Anxious [] Often cries [] Exhaustion [] Unable to work [] Unable to attend zoroastrian [] Unable to walk/stand [] Unable to read [] Unable to drive [] Unable to eat/drink [] Unable to sleep [] Unable to be with family [] Patient intubated [] Other: Summary Time spent with patient 10 min
[2021-09-28 11:35] LABS: Glucose Point of Care 128 mg/dL (70-110)
[2021-09-28 12:03] LABS: Glucose Point of Care 235 mg/dL (70-110)
[2021-09-28] MEDS: insulin lispro 100 unit/1 mL SUBCUT ×2 (12:29→18:13)
--- NOTE | 2021-09-28 13:33 | PM.PN ---
Subjective Subjective: Patient was seen and examined this morning, he is alert awake oriented x3, denies any abdominal pain nausea vomiting, good urine output secondary to 1 dose of Lasix yesterday, currently serum sodium is 123, At present he is denying any, muscle pain, cramps, headache. Will advance his diet, add 2 g sodium p.o. twice daily. Physical therapy on board. Medications: Medication Review Details: Generic Name Dose Route Start Last Admin Trade Name Russelq PRN Reason Stop Dose Admin Apixaban 2.5 mg 09/27/21 21:00 09/28/21 10:10 Apixaban 5 Mg Ta blet PO Not Given BID@0900,2100 SULEMA Diltiazem HCl 180 mg 09/28/21 09:00 09/28/21 10:06 Diltiazem Er (24 hr) 180 Mg Capsule PO 180 mg DAILY SULEMA Administration Insulin Human Lisp ro 0 unit 09/27/21 12:00 09/28/21 12:29 Insulin Lispro 1 00 Unit/1 Ml SUBCUT 6 unit TIDWM SULEMA Administration Protocol Metoprolol Tartrat e 25 mg 09/27/21 09:00 09/28/21 10:06 Metoprolol Tartr ate 25 Mg Tablet PO 25 mg BID SULEMA Administration Pantoprazole Sodiu m 40 mg 09/27/21 09:00 09/28/21 10:07 Pantoprazole 40 Mg Sdv IVP 40 mg BID SULEMA Administration Sodium Chloride 2 gm 09/28/21 10:00 09/28/21 10:06 Sodium Chloride 1 Gm Tablet PO 2 gm BID SULEMA Administration Vitals/I&O/Wt Last Vital Signs Temp 97.7 F 09/28/21 12:00 Pulse 86 09/28/21 12:00 Resp 16 09/28/21 12:00 BP 128/75 09/28/21 12:00 Pulse Ox 100 09/28/21 12:00 09/27/21 09/28/21 09/28/21 22:59 06:59 14:59 Intake Total 410 / 2120 880 / 880 Output Total 1100 / 2075 1650 / 3725 Balance -690 / 45 -1650 / -1605 880 / 880 Weight last 48 hrs Weight 90.718 kg Physical Exam Const: COMMON NORMALS: patient oriented x3 HENMT: COMMON NORMALS: normocephalic and atraumatic HEAD & SCALP: normocephalic and atraumatic Chest: CHEST: Yes Symmetrical chest wall rise Resp: COMMON NORMALS: normal respiratory effort, No retractions, No use of accessory muscles and clear to auscultation bilaterally EFFORT & INSPECTION: Yes symmetric chest movement AUSCULTATION: clear to auscultation bilaterally Cardio: COMMON NORMALS: regular rate, regular rhythm, S1 normal heart sound present, S2 normal heart sound present, No gallops present (Cardio), No murmurs present (Cardio), No rub (Cardio) and Peripheral pulses 2+ throughout RATE: regular rate RHYTHM: regular rhythm HEART SOUNDS: S1 normal heart sound present and S2 normal heart sound present PERIPHERAL PULSES: Peripheral pulses 2+ throughout GI: COMMON NORMALS: Normal to inspection, nondistended, normoactive bowel sounds present, Soft to palpation, non-tender, No hepatosplenomegaly present and no masses AUSCULTATION: Yes normoactive bowel sounds PALPATION: Yes Soft to palpation and Yes No hepatosplenomegaly present RECTAL EXAM: Yes deferred Extremity: COMMON NORMALS: no clubbing, cyanosis or edema and no pedal edema Neuro: COMMON NORMALS: patient oriented x3 Urinary Catheter Management: Acosta: Cath Placed During This Visit: yes Reason for Continuing Indwelling Catheter: Other Urinary Catheter Date of Insertion: 09/27/21 Urinary Catheter Time of Insertion: 13:23 Data : 09/28/21 03:34 09/28/21 05:11 A&P Assessment and plan (1) Hyponatremia syndrome: Status: Acute (2) MARTIN (acute kidney injury): Status: Acute (3) Metabolic encephalopathy: Status: Acute (4) Cholelithiasis: Status: Acute (5) BPH loc w urin obs/LUTS: Status: Acute (6) Atrial fibrillation: Status: Acute Plan 86-year male who was recently discharged from the hospital came back for generalized weakness in the ER he was diagnosed with severe hyponatremia Severe acute hyponatremia He was put on normal saline 30 cc/h, I will increase rate to 75 cc/h His mentation has significantly improved since yesterday PT evaluation Family requesting rehab placement 1 sodium is corrected Urine osmolarity, serum osmolarity, TSH is normal Clinically he does look hypervolemic with body wall edema and lower extremity trace edema He is third spacing which is evident on CT abdomen pelvis as well Albumin 2.8: We will give 1 bag today hyponatremia most likely secondary to use of Lasix, with third spacing due to pancreatitis and low albumin Check cortisol level and uric acid Gallstone induced pancreatitis No active signs or symptoms Lipase trending down No signs of necrotic pancreas, no signs of sepsis CT scan of abdomen was done without contrast In case of any febrile events or sepsis my threshold will stay low for addition of Zosyn and repeating CT scan Hypocalcemia due to pancreatitis we will give 1 g calcium gluconate MARTIN due to intravascular depletion anticipate improvement with IV fluid hydration, Place Acosta catheter for accurate urine output, he does have history of BPH and urine retention History of A. fib, he was taken off Eliquis when he was diagnosed with ectopic atrial beat, his EKG is consistent with A. fib I would go ahead and start low-dose Eliquis and choosing low-dose because of his abnormal creatinine and age Full code Hemoglobin A1c 6, hyperglycemia He is borderline diabetic. DVT prophylaxis covered with Eliquis Attestations Medical Necessity Statement*: Patient is still in hospital for management of acute hyponatremia. 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
[2021-09-28 17:12] LABS: Glucose Point of Care 212 mg/dL (70-110)
[2021-09-28 20:27] LABS: Glucose Point of Care 289 mg/dL (70-110)
[2021-09-28] MEDS: apixaban 5 mg Tablet 2.5 MG PO (20:56)
[2021-09-28 21:30] LABS: Anion Gap 16.9 (5-19); Blood Urea Nitrogen 40 mg/dL (8-23); Calcium 8.2 mg/dL (8.5-10.5); Carbon Dioxide 19 mmol/L (22-29); Chloride 89 mmol/L (98-107); Glucose 266 mg/dL (65-115); Osmolality Calculated 271 mOsm/kg (285-295); Potassium 3.9 mmol/L (3.5-5.1); Sodium 121 mmol/L (136-145)
[2021-09-28 21:31] LABS: Creatinine Clr Calc Pharmacy 49.5667
[2021-09-29] VITALS (8 sets, daily range): BP systolic 102–147; BP diastolic 68–88; PULSE 74–103; RESP 16–23; TEMP 36.3–37.1; O2SAT 93–97
[2021-09-29 06:06] LABS: Basophils # 0.1 10^3/uL (0.0-0.1); Basophils % 0.3 %; Eosinophils # 0.1 10^3/uL (0.0-0.8); Eosinophils % 0.6 %; Hematocrit 37.2 % (42.0-52.0); Hemoglobin 12.2 g/dL (11.7-16.6); Lymphocytes # 0.5 10^3/uL (0.8-4.8); Lymphocytes % 2.8 %; Mean Corpuscular HGB Conc 32.8 g/dL (30.0-36.0); Mean Corpuscular Hemoglobin 31.3 pg (28.0-34.0); Mean Corpuscular Volume 95.4 fl (80-94); Mean Platelet Volume 9.7 fL (7.4-10.4); Monocytes # 0.7 10^3/uL (0.2-0.9); Monocytes % 4.1 %; Neutrophils # 16.24 10^3/uL (1.8-7.7); Neutrophils % 89.5 %; Nucleated Red Blood Cells % 0 %; Platelet Count 233 10^3/cmm (130-400); Red Cell Distribution Width 14.4 % (12.1-15.1); White Blood Count 18.2 10^3/uL (4.0-10.0)
[2021-09-29 06:32] LABS: Glucose Point of Care 174 mg/dL (70-110)
[2021-09-29 06:35] LABS: Blood Urea Nitrogen 32 mg/dL (8-23); Calcium 8.3 mg/dL (8.5-10.5); Carbon Dioxide 18 mmol/L (22-29); Chloride 92 mmol/L (98-107); Glucose 191 mg/dL (65-115); Osmolality Calculated 272 mOsm/kg (285-295); Sodium 125 mmol/L (136-145)
[2021-09-29 06:39] LABS: Anion Gap 18.9 (5-19); Potassium 3.9 mmol/L (3.5-5.1)
[2021-09-29] MEDS: sodium chloride 1 gm Tablet 2 GM PO ×2 (08:55→18:20)
[2021-09-29] MEDS: pantoprazole 40 mg SDV IVP ×2 (08:55→18:19)
[2021-09-29] MEDS: dilTIAZem ER (24HR) 180 mg Capsule PO (08:55)
[2021-09-29] MEDS: insulin lispro 100 unit/1 mL SUBCUT ×3 (08:55→18:19)
[2021-09-29] MEDS: metoprolol tartrate 25 mg Tablet PO ×2 (08:55→18:20)
--- NOTE | 2021-09-29 09:26 | P.PN_ITS ---
Subjective Subjective: Patient was seen and examined this morning, no acute events overnight, serum sodium is improving, BUN and serum creatinine is improved, patient continued to have good urine output. Working well with physical therapy, currently on dysphagia level 2 diet. Medications: Medication Review Details: Generic Name Dose Route Start Last Admin Trade Name Russelq PRN Reason Stop Dose Admin Apixaban 2.5 mg 09/27/21 21:00 09/28/21 10:10 Apixaban 5 Mg Ta blet PO Not Given BID@0900,2100 SULEMA Diltiazem HCl 180 mg 09/28/21 09:00 09/28/21 10:06 Diltiazem Er (24 hr) 180 Mg Capsule PO 180 mg DAILY SULEMA Administration Insulin Human Lisp ro 0 unit 09/27/21 12:00 09/28/21 12:29 Insulin Lispro 1 00 Unit/1 Ml SUBCUT 6 unit TIDWM SULEMA Administration Protocol Metoprolol Tartrat e 25 mg 09/27/21 09:00 09/28/21 10:06 Metoprolol Tartr ate 25 Mg Tablet PO 25 mg BID SULEMA Administration Pantoprazole Sodiu m 40 mg 09/27/21 09:00 09/28/21 10:07 Pantoprazole 40 Mg Sdv IVP 40 mg BID SULEMA Administration Sodium Chloride 2 gm 09/28/21 10:00 09/28/21 10:06 Sodium Chloride 1 Gm Tablet PO 2 gm BID SULEMA Administration Vitals/I&O/Wt Last Vital Signs Temp 98.7 F 09/29/21 08:00 Pulse 103 H 09/29/21 08:00 Resp 17 09/29/21 08:00 BP 147/77 09/29/21 08:00 Pulse Ox 95 09/29/21 08:00 09/28/21 09/29/21 09/29/21 22:59 06:59 14:59 Intake Total 480 / 1360 236 / 236 Output Total 950 / 950 950 / 1900 Balance -950 / -70 -470 / -540 236 / 236 Physical Exam Const: COMMON NORMALS: patient oriented x3 HENMT: COMMON NORMALS: normocephalic and atraumatic HEAD & SCALP: norm ocephalic and atraumatic Chest: CHEST: Yes Symmetrical chest wall rise Resp: COMMON NORMALS: normal respiratory effort, No retractions, No use of accessory muscles and clear to auscultation bilaterally EFFORT & INSPECTION: Yes symmetric chest movement AUSCULTATION: clear to auscultation bilaterally Cardio: COMMON NORMALS: regular rate, regular rhythm, S1 normal heart sound present, S2 normal heart sound present, No gallops present (Cardio), No murmurs present (Cardio), No rub (Cardio) and Peripheral pulses 2+ throughout RATE: regular rate RHYTHM: regular rhythm HEART SOUNDS: S1 normal heart sound present and S2 normal heart sound present PERIPHERAL PULSES: Peripheral pulses 2+ throughout GI: COMMON NORMALS: Normal to inspection, nondistended, normoactive bowel sounds present, Soft to palpation, non-tender, No hepatosplenomegaly present and no masses AUSCULTATION: Yes normoactive bowel sounds PALPATION: Yes Soft to palpation and Yes No hepatosplenomegaly present RECTAL EXAM: Yes deferred Extremity: COMMON NORMALS: no clubbing, cyanosis or edema and no pedal edema Neuro: COMMON NORMALS: patient oriented x3 Urinary Catheter Management: Acosta: Cath Placed During This Visit: yes Reason for Continuing Indwelling Catheter: Other Urinary Catheter Date of Insertion: 09/27/21 Urinary Catheter Time of Insertion: 13:23 Data : 09/29/21 05:26 09/29/21 05:26 Micro: Microbiology 09/29/21 02:05 C.difficile Toxin B Gene (PCR) - Final Stool Routine Collection A&P Assessment and plan (1) Hyponatremia syndrome: Status: Acute (2) MARTIN (acute kidney injury): Status: Acute (3) Metabolic encephalopathy: Status: Acute (4) Cholelithiasis: Status: Acute (5) BPH loc w urin obs/LUTS: Status: Acute (6) Atrial fibrillation: Status: Acute Plan 86-year-old male presented to the hospital with generalized weakness, he was recently managed for acute pancreatitis and was discharged home. Currently he is being managed for acute hyponatremia. Assessment: Symptomatic acute hyponatremia: TSH: 0.94 Cortisol:16 Random urine sodium Urine specific gravity: Urine osmolality Serum osmolality Continue with salt tablets Monitor intake output Continue to monitor BMP #Acute pancreatitis: Secondary to gallstone: Patient had MRCP done on prior admission.Gallstones without evidence for cholecystitis. The common bile duct is normal in caliber. CT abdomen and pelvis without contrast: Changes are consistent with acute pancreatitis. Currently patient is denying any abdominal pain nausea vomiting, has remained afebrile hemodynamically stable. Currently tolerating diet. Hypocalcemia due to pancreatitis we will give 1 g calcium gluconate MARTIN due to intravascular depletion anticipate improvement with IV fluid hydration, Place Acosta catheter for accurate urine output, he does have history of BPH and urine retention History of A. fib, he was taken off Eliquis when he was diagnosed with ectopic atrial beat, his EKG is consistent with A. fib. He was started on low-dose Eliquis. 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 Currently he has decided not to take Eliquis. Hemoglobin A1c 6, hyperglycemia He is borderline diabetic. DVT prophylaxis: No Lovenox Full code Attestations Medical Necessity Statement*: Patient is to the hospital for management of acute symptomatic hyponatremia. Time Spent in Patient Care: Greater than 35 minutes (>than 50% of time spent in counselling and/or direct pt care on unit) . 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
[2021-09-29 11:01] LABS: Glucose Point of Care 321 mg/dL (70-110)
[2021-09-29 15:47] LABS: Osmolality Serum 277 mOsm/kg (278-305)
[2021-09-29] MEDS: apixaban 5 mg Tablet 2.5 MG PO (21:30)
[2021-09-29 21:51] LABS: Glucose Point of Care 244 mg/dL (70-110)
[2021-09-29 21:51] LABS: Glucose Point of Care 143 mg/dL (70-110)
[2021-09-30] VITALS (11 sets, daily range): BP systolic 106–145; BP diastolic 68–85; PULSE 74–98; RESP 12–20; TEMP 35.7–36.9; O2SAT 91–95
[2021-09-30 06:10] LABS: Basophils % 0.2 %; Eosinophils # 0.2 10^3/uL (0.0-0.8); Eosinophils % 1.1 %; Hemoglobin 11.6 g/dL (11.7-16.6); Lymphocytes # 0.5 10^3/uL (0.8-4.8); Lymphocytes % 3.8 %; Mean Corpuscular HGB Conc 32.2 g/dL (30.0-36.0); Mean Corpuscular Hemoglobin 30.8 pg (28.0-34.0); Mean Corpuscular Volume 95.5 fl (80-94); Mean Platelet Volume 9.4 fL (7.4-10.4); Monocytes # 0.6 10^3/uL (0.2-0.9); Monocytes % 4.3 %; Neutrophils # 12.35 10^3/uL (1.8-7.7); Neutrophils % 87.8 %; Nucleated Red Blood Cells % 0 %; Platelet Count 256 10^3/cmm (130-400); Red Blood Count 3.77 10^6/uL (4.1-5.3); Red Cell Distribution Width 14.6 % (12.1-15.1); White Blood Count 14.1 10^3/uL (4.0-10.0)
[2021-09-30 06:30] LABS: Anion Gap 17.7 (5-19); Blood Urea Nitrogen 28 mg/dL (8-23); Calcium 8.4 mg/dL (8.5-10.5); Carbon Dioxide 18 mmol/L (22-29); Chloride 93 mmol/L (98-107); Creatinine Clr Calc Pharmacy 64.4367; Glucose 165 mg/dL (65-115); Osmolality Calculated 269 mOsm/kg (285-295); Potassium 3.7 mmol/L (3.5-5.1); Sodium 125 mmol/L (136-145)
[2021-09-30 06:53] LABS: Glucose Point of Care 143 mg/dL (70-110)
[2021-09-30] MEDS: insulin lispro 100 unit/1 mL SUBCUT ×3 (07:58→18:14)
[2021-09-30] MEDS: metoprolol tartrate 25 mg Tablet PO ×2 (08:00→18:14)
[2021-09-30] MEDS: sodium chloride 1 gm Tablet 2 GM PO ×2 (08:01→18:14)
[2021-09-30] MEDS: dilTIAZem ER (24HR) 180 mg Capsule PO (08:01)
[2021-09-30] MEDS: pantoprazole DR 40 mg Tablet PO ×2 (09:16→18:14)
[2021-09-30] MEDS: sodium chloride 0.9% 1,000 ML 50 ML IV (09:17)
--- NOTE | 2021-09-30 09:26 | P.PN_ITS ---
Subjective Subjective: Patient was seen and examined this morning, serum sodium this morning is 125, patient is having robust urine output, will start him on gentle IV hydration with normal saline at 50 cc an hour. We will continue with salt tablets.Patient is working with physical therapy, mentation is at baseline. Medications: Medication Review Details: Generic Name Dose Route Start Last Admin Trade Name Heidy PRN Reason Stop Dose Admin Apixaban 2.5 mg 09/27/21 21:00 09/28/21 10:10 Apixaban 5 Mg Ta blet PO Not Given BID@0900,2100 SULEMA Diltiazem HCl 180 mg 09/28/21 09:00 09/28/21 10:06 Diltiazem Er (24 hr) 180 Mg Capsule PO 180 mg DAILY SULEMA Administration Insulin Human Lisp ro 0 unit 09/27/21 12:00 09/28/21 12:29 Insulin Lispro 1 00 Unit/1 Ml SUBCUT 6 unit TIDWM SULEMA Administration Protocol Metoprolol Tartrat e 25 mg 09/27/21 09:00 09/28/21 10:06 Metoprolol Tartr ate 25 Mg Tablet PO 25 mg BID SULEMA Administration Pantoprazole Sodiu m 40 mg 09/27/21 09:00 09/28/21 10:07 Pantoprazole 40 Mg Sdv IVP 40 mg BID SULEMA Administration Sodium Chloride 2 gm 09/28/21 10:00 09/28/21 10:06 Sodium Chloride 1 Gm Tablet PO 2 gm BID SULEMA Administration Vitals/I&O/Wt Last Vital Signs Temp 98.1 F 09/30/21 08:00 Pulse 98 09/30/21 08:00 Resp 18 09/30/21 08:00 BP 145/72 09/30/21 08:00 Pulse Ox 92 09/30/21 08:00 09/29/21 09/30/21 09/30/21 22:59 06:59 14:59 Intake Total 200 / 686 Output Total 700 / 2100 750 / 2850 Balance -500 / -1414 -750 / -2164 Physical Exam Const: COMMON NORMALS: patient oriented x3 HENMT: COMMON NORMALS: normocephalic and atraumatic HEAD & SCALP: normocephalic and atraumatic Chest: CHEST: Yes Symmetrical chest wall rise Resp: COMMON NORMALS: normal respiratory effort, No retractions, No use of accessory muscles and clear to auscultation bilaterally EFFORT & INSPECTION: Yes symmetric chest movement AUSCULTATION: clear to auscultation bilaterally Cardio: COMMON NORMALS: regular rate, regular rhythm, S1 normal heart sound present, S2 normal heart sound present, No gallops present (Cardio), No murmurs present (Cardio), No rub (Cardio) and Peripheral pulses 2+ throughout RATE: r egular rate RHYTHM: regular rhythm HEART SOUNDS: S1 normal heart sound present and S2 normal heart sound present PERIPHERAL PULSES: Peripheral pulses 2+ throughout GI: COMMON NORMALS: Normal to inspection, nondistended, normoactive bowel sounds present, Soft to palpation, non-tender, No hepatosplenomegaly present and no masses AUSCULTATION: Yes normoactive bowel sounds PALPATION: Yes Soft to palpation and Yes No hepatosplenomegaly present RECTAL EXAM: Yes deferred Extremity: COMMON NORMALS: no clubbing, cyanosis or edema and no pedal edema Neuro: COMMON NORMALS: patient oriented x3 Urinary Catheter Management: Acosta: Cath Placed During This Visit: yes Reason for Continuing Indwelling Catheter: Acute Urinary Retention or Obstruction Urinary Catheter Date of Insertion: 09/27/21 Urinary Catheter Time of Insertion: 13:23 Data : 09/30/21 05:46 09/30/21 05:46 Micro: Microbiology 09/29/21 02:05 C.difficile Toxin B Gene (PCR) - Final Stool Routine Collection A&P Assessment and plan (1) Hyponatremia syndrome: Status: Acute (2) MARTIN (acute kidney injury): Status: Acute (3) Metabolic encephalopathy: Status: Acute (4) Cholelithiasis: Status: Acute (5) BPH loc w urin obs/LUTS: Status: Acute (6) Atrial fibrillation: Status: Acute Plan 86-year-old male presented to the hospital with generalized weakness, he was recently managed for acute pancreatitis and was discharged home. Currently he is being managed for acute hyponatremia. Assessment: Symptomatic acute hyponatremia: TSH: 0.94 Cortisol:16 Random urine sodium Urine specific gravity: Urine osmolality Serum osmolality Continue with salt tablets Monitor intake output Continue to monitor BMP #Acute pancreatitis: Secondary to gallstone: Patient had MRCP done on prior admission.Gallstones without evidence for cho lecystitis. The common bile duct is normal in caliber. CT abdomen and pelvis without contrast: Changes are consistent with acute pancreatitis. Currently patient is denying any abdominal pain nausea vomiting, has remained afebrile hemodynamically stable. Currently tolerating diet. Hypocalcemia due to pancreatitis s/p 1 g calcium gluconate MARTIN due to intravascular depletion anticipate improvement with IV fluid hydration, Place Acosta catheter for accurate urine output, he does have history of BPH and urine retention History of A. fib, he was taken off Eliquis when he was diagnosed with ectopic atrial beat, his EKG is consistent with A. fib. He was started on low-dose Eliquis. Patient prefers to consult with his outpatient pharmaceutical development technician, for the need to continue on Eliquis. Currently he has decided not to take Eliquis. Hemoglobin A1c 6, hyperglycemia He is borderline diabetic. DVT prophylaxis: No Lovenox Full code Attestations Medical Necessity Statement*: Patient is to be in hospital for management of hyponatremia. Time Spent in Patient Care: Greater than 35 minutes (>than 50% of time spent in counselling and/or direct pt care on unit) . Coding Level of Care Code Acute Cad Librarian for [facility] Diagnoses Hyponatremia syndrome E87.1 MARTIN (acute kidney injury) N17.9 Metabolic encephalopathy G93.41 Cholelithiasis K80.20 BPH loc w urin obs/LUTS N40.1 Atrial fibrillation I48.91
[2021-09-30 11:36] LABS: Glucose Point of Care 234 mg/dL (70-110)
[2021-09-30 13:59] LABS: Glucose Urine UA 4+ (Normal); Ketones Urine Negative (Negative); Protein Urine Neg (Negative); Urine Appearance Clear (CLEAR); Urine Color Yellow (Yellow); pH Urine 6.5 (5-7)
[2021-09-30 14:00] LABS: Add Urine Microscopic? YES; Bilirubin Urine Neg (Negative); Blood Urine 3+ (Negative); Leukocyte Esterase Urine Negative (Negative); Nitrate Urine Negative (Negative); Squamous Epithelial Cell Urine 0-4 /hpf (0-5); Urobilinogen Urine Norm (Negative); WBC Urine 0-4 /hpf (0-5)
[2021-09-30 14:01] LABS: Bacteria Urine Rare /hpf
[2021-09-30 14:02] LABS: Add Urine Culture? Yes
[2021-09-30 14:10] LABS: Urine Random Sodium 12 mmol/L
[2021-09-30 17:06] LABS: Glucose Point of Care 180 mg/dL (70-110)
[2021-09-30 18:08] LABS: Blood Urea Nitrogen 26 mg/dL (8-23); Calcium 8.2 mg/dL (8.5-10.5); Carbon Dioxide 21 mmol/L (22-29); Chloride 93 mmol/L (98-107); Creatinine Clr Calc Pharmacy 64.4367; Glucose 200 mg/dL (65-115); Osmolality Calculated 276 mOsm/kg (285-295); Sodium 128 mmol/L (136-145)
[2021-09-30 18:55] LABS: Anion Gap 18.2 (5-19); Potassium 4.2 mmol/L (3.5-5.1)
[2021-09-30 20:55] LABS: Glucose Point of Care 219 mg/dL (70-110)
[2021-10-01 00:10] VITALS: BP 149/87; PULSE 87; RESP 20; TEMP 37.1; O2SAT 95
[2021-10-01 03:11] LABS: Basophils % 0.2 %; Eosinophils # 0.1 10^3/uL (0.0-0.8); Hematocrit 37.3 % (42.0-52.0); Hemoglobin 11.7 g/dL (11.7-16.6); Lymphocytes # 0.7 10^3/uL (0.8-4.8); Lymphocytes % 5.2 %; Mean Corpuscular HGB Conc 31.4 g/dL (30.0-36.0); Mean Corpuscular Hemoglobin 30.7 pg (28.0-34.0); Mean Corpuscular Volume 97.9 fl (80-94); Mean Platelet Volume 9.4 fL (7.4-10.4); Monocytes # 0.6 10^3/uL (0.2-0.9); Monocytes % 4.4 %; Neutrophils # 11.65 10^3/uL (1.8-7.7); Neutrophils % 86.1 %; Nucleated Red Blood Cells % 0 %; Platelet Count 286 10^3/cmm (130-400); Red Blood Count 3.81 10^6/uL (4.1-5.3); Red Cell Distribution Width 14.5 % (12.1-15.1); White Blood Count 13.5 10^3/uL (4.0-10.0)
[2021-10-01 03:33] LABS: Anion Gap 18.8 (5-19); Blood Urea Nitrogen 25 mg/dL (8-23); Calcium 8.5 mg/dL (8.5-10.5); Carbon Dioxide 19 mmol/L (22-29); Chloride 95 mmol/L (98-107); Glucose 206 mg/dL (65-115); Osmolality Calculated 278 mOsm/kg (285-295); Potassium 3.8 mmol/L (3.5-5.1); Sodium 129 mmol/L (136-145)
[2021-10-01 04:08] VITALS: BP 150/83; PULSE 104; RESP 18; TEMP 37.2; O2SAT 94
[2021-10-01 06:36] LABS: Glucose Point of Care 187 mg/dL (70-110)
[2021-10-01 07:44] VITALS: BP 159/92; PULSE 102; RESP 14; TEMP 36.7; O2SAT 94
[2021-10-01] MEDS: insulin lispro 100 unit/1 mL SUBCUT ×2 (08:39→12:40)
[2021-10-01] MEDS: sodium chloride 0.9% 1,000 ML 75 ML IV (08:39)
[2021-10-01] MEDS: pantoprazole DR 40 mg Tablet PO (08:40)
[2021-10-01] MEDS: sodium chloride 1 gm Tablet 2 GM PO (08:40)
[2021-10-01] MEDS: dilTIAZem ER (24HR) 180 mg Capsule PO (08:40)
[2021-10-01] MEDS: metoprolol tartrate 25 mg Tablet PO (08:40)
[2021-10-01 11:52] VITALS: BP 127/77; PULSE 86; RESP 17; TEMP 36.7; O2SAT 95
[2021-10-01 11:54] LABS: Glucose Point of Care 267 mg/dL (70-110)
--- NOTE | 2021-10-01 12:04 | P.DS_ITS ---
Discharge Providers Date of Admission: 09/26/21 17:23 Date of Discharge: October 01, 2021 Attending Provider at Admission: Tiki Verma MD Attending Provider at Discharge: Dwight Cole MD Primary Care Provider: Pamela Aguila MD Diagnoses at Discharge Discharge Diagnosis (1) Hyponatremia syndrome: Status: Acute (2) MARTIN (acute kidney injury): Status: Acute (3) Metabolic encephalopathy: Status: Acute (4) Cholelithiasis: Status: Acute (5) BPH loc w urin obs/LUTS: Status: Acute (6) Atrial fibrillation: Status: Acute Reason for Visit Reason for Visit: WEAKNESS Hospital Course Hospital Course 85 yo man with PMHx of HTN, DM-2 (diet controlled), neuropathy with hospitalization for COVID pneumonia, recently discharged after the management of acute pancreatitis secondary to cholelithiasis, was admitted at this time with chief complaint of generalized weakness he was found to be in severe symptomatic hyponatremia likely hypervolemic, with concomitant intravascular volume depletion.TSH and random cortisol was normal. patient was kept on gentle IV hydration, salt tablets , free water restrictions, to which he responded well. At the time of discharge his serum sodium was trending up he was discharged on serum sodium of 129, at the time of discharge he denied any, muscle pain muscle cramps, was at his baseline mentation, he was encouraged to indulge in a healthy balanced diet, keep himself well-hydrated with,gatorade, he was also discharged on p.o. salt tablet, Lasix has been kept on hold on discharge, as he is making good urine on its own, and potentially avoid Lasix associated hyponatremia. His MARTIN which is likely secondary to combination of possible intravascular volume depletion as well as likely due to urinary retention,MARTIN had resolved at the time of discharge: patient passed voiding trail on discharge. For his recent history of acute pancreatitis, secondary to cholelithiasis he has been advised to follow-up with the surgeon, for elective cholecystectomy, patient is aware of that. Patient had also developed A. fib during the hospital stay: He has been continued on Cardizem as well as metoprolol, family has currently opted for not being on anticoagulation, given his age and and possibility of fall. Family understand the risk and benefit of not being on anticoagulation. Given his overall generalized weakness, patient has currently qualified for SNF placement.He is being discharged to SNF: Patient has been advised to do repeat BMP in 1 week: To monitor his serum sodium, he has also been advised to follow-up with his primary care physician in 1 week, at that time depending upon his volume status: Decision regarding resuming Lasix can be made. Physical Exam Const: COMMON NORMALS: patient oriented x3 HENMT: COMMON NORMALS: normocephalic and atraumatic HEAD & SCALP: normocephalic and atraumatic Chest: CHEST: Yes Symmetrical chest wall rise Resp: COMMON NORMALS: normal respiratory effort, No retractions, No use of accessory muscles and clear to auscultation bilaterally EFFORT & INSPECTION: Yes symmetric chest movement AUSCULTATION: clear to auscultation bilaterally Cardio: COMMON NORMALS: regular rate, regular rhythm, S1 normal heart sound present, S2 normal heart sound present, No gallops present (Cardio), No murmurs present (Cardio), No rub (Cardio) and Peripheral pulses 2+ throughout RATE: regular rate RHYTHM: regular rhythm HEART SOUNDS: S1 normal heart sound present and S2 normal heart sound present PERIPHERAL PULSES: Peripheral pulses 2+ throughout GI: COMMON NORMALS: Normal to inspection, nondistended, normoactive bowel sounds present, Soft to palpation, non-tender, No hepatosplenomegaly present and no masses AUSCULTATION: Yes normoactive bowel sounds PALPATION: Yes Soft to palpation and Yes No hepatosplenomegaly present RECTAL EXAM: Yes deferred Extremity: COMMON NORMALS: no clubbing, cyanosis or edema and no pedal edema Neuro: COMMON NORMALS: patient oriented x3 Urinary Catheter Management: Acosta: Cath Placed During This Visit: yes, but has since been removed by the nurse Reason for Continuing Indwelling Catheter: Decision to DC Catheter Urinary Catheter Date of Insertion: 09/27/21 Urinary Catheter Time of Insertion: 13:23 Date Urinary Catheter Removed: 10/01/21 Time Urinary Catheter Discontinued: 10:48 Discharge Data Studies Completed and Pending Completed Studies During Hospitalization Category Date Time Status CT abdomen pelvis con [id number] Stat Cat Scan 09/26/21 15:42 Completed Pending at discharge Category Date Time Status Osmolality Urine Routine Lab 09/27/21 12:47 Received Urine Culture Routine Lab 09/30/21 12:36 Results Radiology Impressions Abdomen/Pelvis CT 09/26/21 15:42 IMPRESSION: 1. Stable changes consistent with severe acute pancreatitis. Evaluation for pancreatic necrosis cannot be performed without intravenous contrast. 2. Interval development of small/moderate bilateral pleural effusions with compressive atelectasis in the bilateral lower lobes. 3. The gallbladder is contracted. Multiple calcified stones in the gallbladder are stable. 4. Scattered diverticula in the colon. No evidence for diverticulitis. 5. Interval development of mild body wall edema. 6. Incidental/nonacute findings are listed in the report. Laboratory Results WBC 13.5 10^3/uL (4.0-10.0) H 10/01/21 02:07 RBC 3.81 10^6/uL (4.1-5.3) L 10/01/21 02:07 Hgb 11.7 g/dL (11.7-16.6) 10/01/21 02:07 Hct 37.3 % (42.0-52.0) L 10/01/21 02:07 MCV 97.9 fl (80-94) H 10/01/21 02:07 MCH 30.7 pg (28.0-34.0) 10/01/21 02:07 MCHC 31.4 g/dL (30.0-36.0) 10/01/21 02:07 RDW 14.5 % (12.1-15.1) 10/01/21 02:07 Plt Count 286 10^3/cmm (130-400) 10/01/21 02:07 MPV 9.4 fL (7.4-10.4) 10/01/21 02:07 Neut % (Auto) 86.1 % 10/01/21 02:07 Lymph % (Auto) 5.2 % 10/01/21 02:07 [place] % (Auto) 4.4 % 10/01/21 02:07 Eos % (Auto) 1.0 % 10/01/21 02:07 Baso % (Auto) 0.2 % 10/01/21 02:07 Neut # (Auto) 11.65 10^3/uL (1.8-7.7) H 10/01/21 02:07 Lymph # (Auto) 0.7 10^3/uL (0.8-4.8) L 10/01/21 02:07 [place] # (Auto) 0.6 10^3/uL (0.2-0.9) 10/01/21 02:07 Eos # (Auto) 0.1 10^3/uL (0.0-0.8) 10/01/21 02:07 Baso # (Auto) 0.0 10^3/uL (0.0-0.1) 10/01/21 02:07 Nucleated RBC % (auto) 0 % 10/01/21 02:07 Nucleated RBCs # 0.0 /100WBC 10/01/21 02:07 Sodium 129 mmol/L (136-145) L 10/01/21 02:07 Potassium 3.8 mmol/L (3.5-5.1) 10/01/21 02:07 Chloride 95 mmol/L (98-107) L 10/01/21 02:07 Carbon Dioxide 19 mmol/L (22-29) L 10/01/21 02:07 Anion Gap 18.8 (5-19) 10/01/21 02:07 BUN 25 mg/dL (8-23) H 10/01/21 02:07 Creatinine 0.9 mg/dL (0.7-1.2) 10/01/21 02:07 GFR Calculation Not Reportable 10/01/21 02:07 Glucose 206 mg/dL (65-115) H 10/01/21 02:07 POC Glucose 267 mg/dL (70-110) H 10/01/21 11:47 Serum Osmolality 277 mOsm/kg (278-305) L 09/27/21 10:40 Calculated Osmolality 278 mOsm/kg (285-295) L 10/01/21 02:07 Lactate 1.3 mmol/L (0.5-2.2) 09/27/21 04:35 Uric Acid 5.2 mg/dL (3.4-7.0) 09/27/21 10:40 Calcium 8.5 mg/dL (8.5-10.5) 10/01/21 02:07 Magnesium 2.1 mg/dL (1.7-2.3) 09/27/21 04:35 Total Bilirubin 1.5 mg/dL (0.15-1.2) H 09/28/21 05:11 Total Bilirubin Cancelled 09/28/21 05:11 AST 36 U/L (0-40) 09/28/21 05:11 AST Cancelled 09/28/21 05:11 ALT 33 U/L (0-41) 09/28/21 05:11 ALT Cancelled 09/28/21 05:11 Alkaline Phosphatase 131 IU/L (40-130) H 09/28/21 05:11 Alkaline Phosphatase Cancelled 09/28/21 05:11 NT-Pro-B Natriuret Pep 6220 pg/mL (0-450) H 09/27/21 10:40 Total Protein 6.1 g/dL (6.6-8.7) L 09/28/21 05:11 Total Protein Cancelled 09/28/21 05:11 Albumin 2.7 g/dL (3.5-5.2) L 09/28/21 05:11 Albumin Cancelled 09/28/21 05:11 Globulin 3.4 g/dL (1.3-4.6) 09/28/21 05:11 Globulin Cancelled 09/28/21 05:11 Triglycerides 149 mg/dL (0-150) 09/26/21 16:28 Lipase 207 U/L (13-60) H 09/28/21 05:11 25-OH Vitamin D Total 69 ng/mL (30-100) 09/27/21 10:40 Procalcitonin 0.65 ng/mL (0-0.5) H 09/26/21 16:28 PTH Intact 32.9 pg/mL (15-65) 09/27/21 10:40 Calcium (PTH Intact) 7.8 mg/dL (8.5-10.5) L 09/27/21 10:40 Random Cortisol 16.93 ug/dL (2.47-19.5) 09/27/21 10:40 Urine Color Yellow (Yellow) 09/30/21 12:36 Urine Appearance Clear (CLEAR) 09/30/21 12:36 Urine pH 6.5 (5-7) 09/30/21 12:36 Ur Specific [place] 1.020 (1.005-1.030) 09/30/21 12:36 Urine Protein Neg (Negative) 09/30/21 12:36 Urine Glucose (UA) 4+ (Normal) H 09/30/21 12:36 Urine Ketones Negative (Negative) 09/30/21 12:36 Urine Blood 3+ (Negative) H 09/30/21 12:36 Urine Nitrate Negative (Negative) 09/30/21 12:36 Urine Bilirubin Neg (Negative) 09/30/21 12:36 Urine Urobilinogen Norm mg/dL (Negative) 09/30/21 12:36 Ur Leukocyte Esterase Negative (Negative) 09/30/21 12:36 Urine RBC 10-15 /hpf (0-2) H 09/30/21 12:36 Urine WBC 0-4 /hpf (0-5) H 09/30/21 12:36 Ur Squamous Epith Cells 0-4 /hpf (0-5) H 09/30/21 12:36 Amorphous Sediment Not Reportable 09/30/21 12:36 Urine Bacteria Rare /hpf (NONE) 09/30/21 12:36 Urine Yeast 3+ /hpf H 09/30/21 12:36 Ur Random Sodium 12 mmol/L 09/30/21 12:36 Vitals Last Vital Signs Temp 98.1 F 10/01/21 11:52 Pulse 86 10/01/21 11:52 Resp 17 10/01/21 11:52 BP 127/77 10/01/21 11:52 Pulse Ox 95 10/01/21 11:52 Discharge Plan Discharge Patient Disposition: Xfer SNF Condition: Stable Prescriptions: New sodium chloride 1 gram Tablet 2 g PO BID 7 Days Qty: 28 0RF Flomax 0.4 mg capsule 0.4 mg PO DAILY Qty: 30 3RF Continued tramadol 50 mg tablet 50 mg PO BID PRN (Reason: Pain) 0RF meloxicam [Mobic] 15 mg tablet 15 mg PO QAM 0RF simvastatin 20 mg tablet 20 mg PO QPM 0RF lisinopril 20 mg tablet 20 mg PO QAM 0RF metoprolol tartrate 25 mg tablet 25 mg PO BID Qty: 120 3RF gabapentin 600 mg tablet 600 mg PO BID 0RF cetirizine [Zyrtec] 10 mg Tablet 10 mg PO DAILY PRN (Reason: Allergy Symptoms) 0RF sertraline 50 mg tablet 50 mg PO QPM 0RF memantine 10 mg tablet 10 mg PO BID 0RF cholecalciferol (vitamin D3) [Vitamin D3] 125 mcg (5,000 unit) Tablet 125 mcg PO DAILY 0RF diltiazem HCl [Cardizem CD] 180 mg capsule,extended release 24hr 180 mg PO DAILY Qty: 60 0RF Held furosemide 20 mg tablet 20 mg PO DAILY Qty: 90 1RF Hold Instructions: Resume on 10/13/21. Discharge Orders: Discharge Order (Routine); Ordered 10/01/21 Ordered By: Dwight Cole Other Ambulatory Orders: Basic Metabolic Panel (Routine) Timeframe: 1 Week Facility: [facility] - Location: Lab - Main Lab Ordered By: Dwight Cole Referrals: [facility] [Outside] Pamela Aguila MD [Primary Care Provider] - 1 week Brett Vargas MD [Physician] - 1 week Discharge Diet: Soft Mechanical Discharge Activity: Increase activity as tolerated Discharge Attestations Time Spent in Discharge Care*: less than 30 min Specific Discharge Activities: educating patient, educating and/or supporting family/caregiver, discussing with pcp/other providers, discussing with case filler/social workers/dc planners, documenting/other paperwork and evaluating patient/reviewing data Status at Discharge: Cognitive status at discharge: cognitively intact , Behavioral status at discharge: cooperative , Quality Metrics Clinical Quality Measures [ No reported AMI, CVA or VTE this stay] Coding Level of Care Code Acute Multi Share Program Coordinator for [facility] Fwd Exam Detailed Diagnoses Hyponatremia syndrome E87.1 MRATIN (acute kidney injury) N17.9 Metabolic encephalopathy G93.41 Cholelithiasis K80.20 BPH loc w urin obs/LUTS N40.1 Atrial fibrillation I48.91
[2021-10-01 13:49] LABS: SARS Covid-2 Antigen Negative (Negative)
[2021-10-01 15:26] VITALS: BP 138/73; PULSE 86; RESP 16; TEMP 36.7; O2SAT 98
[2021-10-01 16:52] VITALS: BP 138/73; PULSE 86; RESP 16; TEMP 36.7; O2SAT 98
--- NOTE | 2021-10-01 16:53 | PC.NURSE ---
Patient discharge to facility, report not given yet awaiting nurse call back. Patient taken to personal vehicle and took assist x3 to get into vehicle with gait belt applied.
[2021-10-07 12:03] LABS: Osmolality Urine 342 mOsm/kg (50-1200)
== END 2021-10-01 16:53 | disposition skilled nursing facility (03) | DRG 640 ==
LOC: ER 15:57 → MEDSURG 17:49
PROVIDERS: Admitting Provider Internal Medicine; Emergency Provider Family Medicine; PCP Internal Medicine; Visit Provider Internal Medicine
DX: E87.1 Hypo-osmolality and hyponatremia (principal); K85.10 Biliary acute pancreatitis without necrosis or infection; G93.41 Metabolic encephalopathy; N13.8 Other obstructive and reflux uropathy; I42.9 Cardiomyopathy, unspecified; N17.9 Acute kidney failure, unspecified; N40.1 Benign prostatic hyperplasia with lower urinary tract symptoms; E11.40 Type 2 diabetes mellitus with diabetic neuropathy, unspecified; I10 Essential (primary) hypertension; M19.90 Unspecified osteoarthritis, unspecified site; J84.10 Pulmonary fibrosis, unspecified; I27.20 Pulmonary hypertension, unspecified; E86.0 Dehydration; K80.20 Calculus of gallbladder without cholecystitis without obstruction; I48.91 Unspecified atrial fibrillation; Z86.16 Personal history of COVID-19; Z87.01 Personal history of pneumonia (recurrent); Z79.891 Long term (current) use of opiate analgesic
CPT/HCPCS: 36415; 36416; 51702; 74176; 80048; 80053; 81001; 82306; 82310; 82533; 82962; 83605; 83690; 83735; 83880; 83930; 83935; 83970; 84145; 84295; 84300; 84478; 84550; 85025; 87086; 87426; 87493; 92526; 92610; 93005; 96372; 97110; 97116; 97161; 97530; 99285; C9113; J0610; J1644; J1815; J1940; J7030; P9041

== ENCOUNTER → 2021-10-06 14:47 | Outpatient (BNVA) | payer MEDICARE, SELFPAY | PROVIDERS: PCP Internal Medicine; Visit Provider Nurse Practitioner Family | DX: E11.621 Type 2 diabetes mellitus with foot ulcer (principal); L97.511 Non-pressure chronic ulcer of other part of right foot limited to breakdown of skin; L89.312 Pressure ulcer of right buttock, stage 2 | CPT/HCPCS: 11042 ==

== ENCOUNTER 2021-10-07 13:43 | Outpatient (CLI) | payer MEDICARE, SELFPAY ==
[2021-10-07 14:10] LABS: Estmated Average Glucose 148; Hemoglobin A1C 6.8 % (4.0-6.0)
[2021-10-07 14:17] LABS: Anion Gap 16.2 (5-19); Blood Urea Nitrogen 13 mg/dL (8-23); Calcium 8.2 mg/dL (8.5-10.5); Carbon Dioxide 22 mmol/L (22-29); Chloride 100 mmol/L (98-107); Glucose 160 mg/dL (65-115); Osmolality Calculated 282 mOsm/kg (285-295); Potassium 4.2 mmol/L (3.5-5.1); Sodium 134 mmol/L (136-145)
== END 2021-10-07 13:44 | disposition home or self-care (01) ==
LOC: LAB 13:44
PROVIDERS: PCP Internal Medicine; Visit Provider Nurse Practitioner
DX: E11.65 Type 2 diabetes mellitus with hyperglycemia (principal); E87.1 Hypo-osmolality and hyponatremia
CPT/HCPCS: 80048; 83036

== ENCOUNTER → 2021-10-13 14:22 | Outpatient (BNVA) | payer MEDICARE, SELFPAY | PROVIDERS: PCP Internal Medicine; Visit Provider Nurse Practitioner Family | DX: E11.621 Type 2 diabetes mellitus with foot ulcer (principal); L97.511 Non-pressure chronic ulcer of other part of right foot limited to breakdown of skin; Z09 Encounter for follow-up examination after completed treatment for conditions other than malignant neoplasm; I96 Gangrene, not elsewhere classified | CPT/HCPCS: 11042 ==

== ENCOUNTER 2021-10-16 16:21 | Outpatient (CLI) | payer MEDICARE, SELFPAY ==
[2021-10-16 17:01] LABS: Blood Urea Nitrogen 16 mg/dL (8-23); Calcium 8.1 mg/dL (8.5-10.5); Carbon Dioxide 26 mmol/L (22-29); Chloride 90 mmol/L (98-107); Glucose 229 mg/dL (65-115); Osmolality Calculated 276 mOsm/kg (285-295); Sodium 129 mmol/L (136-145)
== END 2021-10-16 16:22 | disposition home or self-care (01) ==
PROVIDERS: PCP Internal Medicine; Visit Provider Nurse Practitioner
DX: I42.9 Cardiomyopathy, unspecified (principal)
CPT/HCPCS: 80048

== ENCOUNTER 2021-10-17 10:04 | Inpatient (IN) | payer MEDICARE, SELFPAY ==
[2021-10-17] VITALS (7 sets, daily range): BP systolic 103–121; BP diastolic 58–77; PULSE 98–124; RESP 16–24; TEMP 36.6; O2SAT 90–96; BMI 27.1
--- NOTE | 2021-10-17 10:18 | XRR_ITS ---
PROCEDURE INFORMATION: Exam: XR Chest Exam date and time: 10/17/2021 10:26 AM Age: 86 years old Clinical indication: Shortness of breath; Additional info: SOB TECHNIQUE: Imaging protocol: XR of the chest. Views: 1 view. COMPARISON: CR (CHEST, ) 09/20/2021 9:48 PM FINDINGS: Lungs: The lung parenchyma is clear. Pleural spaces: No pneumothorax. No pleural effusion. Heart/Mediastinum: Stable enlargement of the cardiac silhouette. Bones/joints: Degenerative changes in the right shoulder joint with prominent inferior glenoid osseous projection, similar to prior exam. XR/XR chest 1V portable [id number] IMPRESSION: 1. No acute cardiopulmonary abnormality identified. 2. Stable cardiomegaly.
--- NOTE | 2021-10-17 10:20 | ECG_ITS ---
[facility] Test Date: 2021-10-17 Pat Name: Chalo Hartman Department: Room: Gender: Male Jar Capper: : [phone] Requested By: Yaron Garcia Order Number: [id number] Daysi MD: Skinny Rose M.D. Measurements Intervals [place] Rate: 125 P: WI: QRS: -25 QRSD: 128 T: 67 QT: 327 QTc: 473 Interpretive Statements ATRIAL FIBRILLATION WITH RAPID VENTRICULAR RESPONSE WITH ABERRANT CONDUCTION OR VENTRICULAR PREMATURE COMPLEXES POSSIBLE ANTERIOR MYOCARDIAL INFARCTION , OF INDETERMINATE AGE [30 ms Q WAVE IN V3/V4, OR R < 0.2 mV IN V4] Compared to ECG 09/26/2021 15:56:27 Ventricular premature complex(es) now present Aberrant conduction of supraventricular beat(s) now present Myocardial infarct finding now present Intraventricular conduction delay no longer present Electronically Signed On 10-17-2021 19:02:22 CDT by Skinny Rose M.D. [email or web address]
[2021-10-17 10:28] LABS: Basophils % 0.3 %; Eosinophils # 0.1 10^3/uL (0.0-0.8); Eosinophils % 0.9 %; Hematocrit 33.2 % (42.0-52.0); Hemoglobin 10.8 g/dL (11.7-16.6); Lymphocytes # 1.9 10^3/uL (0.8-4.8); Mean Corpuscular HGB Conc 32.5 g/dL (30.0-36.0); Mean Corpuscular Hemoglobin 29.5 pg (28.0-34.0); Mean Corpuscular Volume 90.7 fl (80-94); Mean Platelet Volume 9.9 fL (7.4-10.4); Monocytes # 0.5 10^3/uL (0.2-0.9); Neutrophils # 9.86 10^3/uL (1.8-7.7); Neutrophils % 78.9 %; Nucleated Red Blood Cells % 0 %; Platelet Count 244 10^3/cmm (130-400); Red Blood Count 3.66 10^6/uL (4.1-5.3); Red Cell Distribution Width 14.6 % (12.1-15.1); White Blood Count 12.5 10^3/uL (4.0-10.0)
--- NOTE | 2021-10-17 10:29 | W.ED.SOB ---
HPI - SOB/Dyspnea General: Chief Complaint: Shortness of Breath/Dyspnea Stated Complaint: DIFFICULT BREATHING Time Seen by Provider: 10/17/21 10:14 History of Present Illness: HPI Narrative: Patient comes in from the long-term care facility with shortness of breath. Patient states is been going on for a couple of days. States he does not normally wear oxygen, however upon arrival here he is hypoxic in the 80s requiring supplemental oxygen. He denies fever. Endorses productive cough. Upon arrival he is tachycardic and stat EKG shows atrial fibrillation with RVR. Associated symptoms: Deny abdominal pain, chest pain, fever(s), nausea, palpitations, polyuria or vomiting Review of Systems Const: Denies: fever(s) or body aches Eyes: Denies: change in vision or blurry vision ENMT: Denies: throat pain or odynophagia Card: Denies: chest pain or palpitations Resp: Reports: dyspnea GI: Denies: abdominal pain, nausea or vomiting : Denies: flank pain or dysuria Musc: Denies: neck pain or back pain Skin/Breast: Denies: rash or pruritus Neuro: Denies: headache(s) or numbness in extremities Psych: Denies: anxiety or change in appetite Endo: Denies: polyuria or excessive sweating PFSH ED PFSH: Medical History (Updated 10/17/21 @ 13:19 by Yaron Garcia MD) Acute pancreatitis MARTIN (acute kidney injury) Atrial fibrillation BPH loc w urin obs/LUTS Cardiomyopathy Cholelithiasis Chronic prostatitis Dehydration Diabetes mellitus with hyperglycemia, without long-term current use of insulin Family history of prostate cancer Hypertension Hyponatremia Hyponatremia syndrome Metabolic encephalopathy Neuropathy Osteoarthritis Pulmonary fibrosis Pulmonary HTN Surgical History (Updated 10/02/21 @ 08:21 by JADE Perez) Chronic neck pain with history of cervical spinal surgery H/O arthroscopy of right knee History of back surgery Family History Mother , at age 81 Cancer lung Father , at age 82 Cancer prostate Social History Second hand smoke exposure: No Alcohol intake: never Lives independently: Yes Household members: spouse Marital status: Current occupational status: retired History of recent travel: No Current gender identity: Male Physical Exam Const: COMMON NORMALS: no acute distress, healthy appearing and alert HENMT: COMMON NORMALS: normocephalic and atraumatic HEAD & SCALP: normocephalic and atraumatic Eye: COMMON NORMALS: Equal, round and reactive pupils present and EOMs intact bilaterally PUPIL: Yes Equal, round and reactive pupils present Neck/C-Spine: COMMON NORMALS: full ROM and supple Resp: COMMON NORMALS: normal respiratory effort, No retractions and No use of accessory muscles Cardio: OTHER: Tachycardia with an irregularly irregular rhythm GI: COMMON NORMALS: Normal to inspection, nondistended, normoactive bowel sounds present, Soft to palpation and non-tender PALPATION: Yes Soft to palpation Back/Pelvis: COMMON NORMALS: thoracic and lumbar spine normal to inspection and no thoracic nor lumbar tenderness Extremity: COMMON NORMALS: full ROM OTHER: 2+ pitting edema of bilateral lower extremity Neuro: SENSORIUM/ORIENTATION: Yes alert Psych: COMMON NORMALS: mental status grossly normal and cooperative Skin: COMMON NORMALS: no rashes or lesions noted and no wounds GENERAL SKIN EXAM: no rashes or lesions noted Course Vital Signs: Vital signs: Vital Signs Temperature 97.8 F 10/17/21 10:10 Pulse Rate 108 H 10/17/21 12:00 Respiratory Rate 24 H 10/17/21 11:00 Blood Pressure 109/75 10/17/21 12:00 Pulse Oximetry 90 10/17/21 12:00 MDM - SOB/Dyspnea Medical Decision Making Patient comes in from the long-term care facility with shortness of breath. Patient states is been going on for a couple of days. States he does not normally wear oxygen, however upon arrival here he is hypoxic in the 80s requiring supplemental oxygen. He denies fever. Endorses productive cough. Upon arrival he is tachycardic and stat EKG shows atrial fibrillation with RVR. Will check labs, start diltiazem bolus and drip, check x-ray, check CT, and reassess. On reassessment I talked to the patient about the test results. I discussed the case with the hospitalist, and we will admit to the hospital for further work-up and treatment. Lab Data : 10/17/21 09:51 10/17/21 09:51 Labs/Radiology: Radiology Impressions Chest X-Ray 10/17/21 10:18 IMPRESSION: 1. No acute cardiopulmonary abnormality identified. 2. Stable cardiomegaly. Chest CTA 10/17/21 11:34 IMPRESSION: 1. No evidence of pulmonary embolus or aortic aneurysm/dissection. 2. Cardiomegaly and coronary artery calcification. 3. Moderate bilateral pleural effusions with bibasilar atelectasis. Laboratory Results WBC 12.5 10^3/uL (4.0-10.0) H 10/17/21 09:51 RBC 3.66 10^6/uL (4.1-5.3) L 10/17/21 09:51 Hgb 10.8 g/dL (11.7-16.6) L 10/17/21 09:51 Hct 33.2 % (42.0-52.0) L 10/17/21 09:51 MCV 90.7 fl (80-94) 10/17/21 09:51 MCH 29.5 pg (28.0-34.0) 10/17/21 09:51 MCHC 32.5 g/dL (30.0-36.0) 10/17/21 09:51 RDW 14.6 % (12.1-15.1) 10/17/21 09:51 Plt Count 244 10^3/cmm (130-400) 10/17/21 09:51 MPV 9.9 fL (7.4-10.4) 10/17/21 09:51 Neut % (Auto) 78.9 % 10/17/21 09:51 Lymph % (Auto) 15.0 % 10/17/21 09:51 [place] % (Auto) 4.0 % 10/17/21 09:51 Eos % (Auto) 0.9 % 10/17/21 09:51 Baso % (Auto) 0.3 % 10/17/21 09:51 Neut # (Auto) 9.86 10^3/uL (1.8-7.7) H 10/17/21 09:51 Lymph # (Auto) 1.9 10^3/uL (0.8-4.8) 10/17/21 09:51 [place] # (Auto) 0.5 10^3/uL (0.2-0.9) 10/17/21 09:51 Eos # (Auto) 0.1 10^3/uL (0.0-0.8) 10/17/21 09:51 Baso # (Auto) 0.0 10^3/uL (0.0-0.1) 10/17/21 09:51 Nucleated RBC % (auto) 0 % 10/17/21 09:51 Nucleated RBCs # 0.0 /100WBC 10/17/21 09:51 Specimen Type Arterial 10/17/21 10:44 Sample Site Radial, right 10/17/21 10:44 ABG pH 7.50 (7.35-7.45) H 10/17/21 10:44 ABG pCO2 36.1 mmHg (35-45) 10/17/21 10:44 ABG pO2 73.2 mmHg (80.0-100.0) L 10/17/21 10:44 ABG HCO3 28.4 mmol/L (22-26) H 10/17/21 10:44 ABG Base Excess 5.0 mmol/L (-2.0-2.0) H 10/17/21 10:44 Holland Test Pos 10/17/21 10:44 Hematocrit 31.5 % (42-52) L 10/17/21 10:44 O2 Delivery Device Nc 10/17/21 10:44 O2 Liters/Min 3.0 % 10/17/21 10:44 FiO2 32.0 % 10/17/21 10:44 Weigher Operator ID Amh 10/17/21 10:44 Sodium 132 mmol/L (136-145) L 10/17/21 09:51 Potassium 3.9 mmol/L (3.5-5.1) 10/17/21 09:51 Chloride 92 mmol/L (98-107) L 10/17/21 09:51 Carbon Dioxide 28 mmol/L (22-29) 10/17/21 09:51 Anion Gap 15.9 (5-19) 10/17/21 09:51 BUN 12 mg/dL (8-23) 10/17/21 09:51 Creatinine 0.9 mg/dL (0.7-1.2) 10/17/21 09:51 GFR Calculation Not Reportable 10/17/21 09:51 Glucose 162 mg/dL (65-115) H 10/17/21 09:51 Calculated Osmolality 277 mOsm/kg (285-295) L 10/17/21 09:51 Lactic Acid 1.4 mmol/L (0.5-2.2) 10/17/21 10:37 Calcium 8.5 mg/dL (8.5-10.5) 10/17/21 09:51 Total Bilirubin 0.6 mg/dL (0.15-1.2) 10/17/21 09:51 AST 32 U/L (0-40) 10/17/21 09:51 ALT 34 U/L (0-41) 10/17/21 09:51 Alkaline Phosphatase 130 IU/L (40-130) 10/17/21 09:51 NT-Pro-B Natriuret Pep 5252 pg/mL (0-450) H 10/17/21 09:51 Total Protein 6.2 g/dL (6.6-8.7) L 10/17/21 09:51 Albumin 2.9 g/dL (3.5-5.2) L 10/17/21 09:51 Globulin 3.3 g/dL (1.3-4.6) 10/17/21 09:51 Discharge Plan Discharge Patient Disposition: Admitted As Inpatient Clinical Impression: Atrial fibrillation with rapid ventricular response Condition: Stable Coding Level of Care Code ED Lockstitch Cup Setter for Maverick Butler
[2021-10-17 10:54] LABS: Alanine Aminotransferase 34 U/L (0-41); Albumin Level 2.9 g/dL (3.5-5.2); Alkaline Phosphatase 130 IU/L (40-130); Chloride 92 mmol/L (98-107); Potassium 3.9 mmol/L (3.5-5.1); Sodium 132 mmol/L (136-145)
[2021-10-17 10:55] LABS: ABG PCO2 36.1 mmHg (35-45); Arterial Blood Gas Hematocrit 31.5 % (42-52); Blood Gas Allen Test Pos; Blood Gas Operator Identificat AMH; Blood Gas Sample Site Radial, right; Blood Gas Sample Type Arterial; HCO3 ABG 28.4 mmol/L (22-26); Oxygen Device NC; PO2 ABG 73.2 mmHg (80.0-100.0)
[2021-10-17] MEDS: dilTIAZem 5 mg/mL SDV 5 mL 10 MG IVP (10:58)
--- NOTE | 2021-10-17 11:09 | PC.PHAR ---
pt is from [facility]-olean states the pts takes care of his medications and states they dont have a mar for the pt-pts states her daughter masoud [phone] has been taking care of the pts medications now- pts and pts daughter masoud verified pts medications-notes are made in the pharmacy comments
[2021-10-17 11:22] LABS: Lactic Sepsis W/Reflex 1.4 mmol/L (0.5-2.2)
[2021-10-17 11:31] LABS: Anion Gap 15.9 (5-19); Aspartate Amino Transferase 32 U/L (0-40); Blood Urea Nitrogen 12 mg/dL (8-23); Calcium 8.5 mg/dL (8.5-10.5); Carbon Dioxide 28 mmol/L (22-29); Globulin 3.3 g/dL (1.3-4.6); Glucose 162 mg/dL (65-115); NT Pro B Type Natriuretic Pept 5252 pg/mL (0-450); Osmolality Calculated 277 mOsm/kg (285-295); Total Bilirubin 0.6 mg/dL (0.15-1.2); Total Protein 6.2 g/dL (6.6-8.7)
--- NOTE | 2021-10-17 11:34 | CTR_ITS ---
PROCEDURE INFORMATION: Exam: CTA Chest With Contrast Exam date and time: 10/17/2021 12:22 PM Age: 86 years old Clinical indication: Cough and shortness of breath; Additional info: Concern for pe TECHNIQUE: Imaging protocol: Computed tomographic angiography of the chest with contrast. 3D rendering (Not supervised by radiologist): MIP and/or 3D reconstructed images were created by the technologist. Radiation optimization: All CT scans at this facility use at least one of these dose optimization techniques: automated exposure control; mA and/or kV adjustment per patient size (includes targeted exams where dose is matched to clinical indication); or iterative reconstruction. Contrast material: OMNIPAQUE 350; Contrast volume: 92 ml; Contrast route: INTRAVENOUS (IV); COMPARISON: CT angio chest abdomen pelvis 09/20/2021 10:32 PM RADIATION DOSE METRICS: Total DLP (mGy-cm): 569.35 FINDINGS: Pulmonary arteries: Normal. No pulmonary emboli. Aorta: There is moderate calcification of the thoracic aorta. There is no thoracic aortic aneurysm or dissection. Lungs: There is bibasilar atelectasis. Pleural spaces: Moderate bilateral pleural effusions. No pneumothorax. Heart: The heart is enlarged. There is calcification of the coronary arteries. Lymph nodes: Unremarkable. No enlarged lymph nodes. Gallbladder and bile ducts: Cholelithiasis. Pancreas: The pancreas is enlarged and there is peripancreatic infiltration consistent with acute pancreatitis. Bones/joints: Chronic degenerative changes are present in the spine. No acute bony abnormality. Soft tissues: Unremarkable. CT/CT angio chest PE protcl [id number] IMPRESSION: 1. No evidence of pulmonary embolus or aortic aneurysm/dissection. 2. Cardiomegaly and coronary artery calcification. 3. Moderate bilateral pleural effusions with bibasilar atelectasis.
[2021-10-17] MEDS: iohexol 350 mg/mL 100 mL Btl IV (12:36)
[2021-10-17] MEDS: FUROsemide 10 mg/mL SDV 4mL 40 MG IVP (13:11)
--- NOTE | 2021-10-17 14:11 | PC.NURSE ---
PT placed on continuous NIBP, SpO2, and CM
--- NOTE | 2021-10-17 14:24 | P.HP_ITS ---
Providers/Chief Complaint Admitting Physician: Margot Dia MD Primary Care Provider: Pamela Aguila MD Chief Complaint: DIFFICULT BREATHING History of Present Illness Chalo Hartman is a 86 year old male who was recently discharged from the hospital after management of hyponatremia, A. fib RVR, he was discharged to [facility] family opted for no anticoagulating agent at that time, he is presenting today with chief complaint of worsening of cough. As per his at the [facility] he was experiencing multiple bouts of cough and they were worried about fluid overload that is why they brought him to the hospital for evaluation. In the ER he was diagnosed with A. fib RVR. Patient is stating that he is quantity of new/signs of new has reduced otherwise he has not experienced any recurrent abdominal pain nausea or vomiting. As per his daughter he has had falls in the past but now they have changed And would like to opt for initiation of anticoagulating agent in order to prevent stroke. Patient remains full code He has not seen a surgeon for elective cholecystectomy He was recently discharged from the hospital after management of gallstone induced pancreatitis Heart rate is in 70s currently on Cardizem drip at 5 Transfer to icu Potassium 3.9, check magnesium level Will do venous Doppler of bilateral lower extremities Leukocytosis 12.5 CT chest did not show PE moderate bilateral pleural effusion Review of Systems Const: Reports: chills Eyes: Denies: change in vision ENMT: Denies: throat pain Card: Denies: chest pain Resp: Denies: dyspnea GI: Denies: abdominal pain : Denies: flank pain Musc: Reports: extremity pain Skin/Breast: Reports: lesions Neuro: Reports: lack of coordination and dizziness Psych: Denies: anxiety Endo: Denies: polyuria Leo/Lymph: Denies: easy bruising All/Imm: Denies: urticaria Medications/Allergies Home Medications Medication Instructions Recorded Confirmed Last Taken Type tramadol 50 mg tablet 50 mg PO BID 10/31/19 10/17/21 10/17/21 History lisinopril 20 mg tablet 10 mg PO QAM 04/10/20 10/17/21 10/17/21 History meloxicam 15 mg tablet (Mobic) 15 mg PO QAM 10/30/20 10/17/21 09/26/21 History metoprolol tartrate 25 mg tablet 25 mg PO BID #120 tab 08/07/21 10/17/21 10/17/21 Rx cholecalciferol (vitamin D3) 125 125 mcg PO QAM 09/21/21 10/17/21 10/17/21 09:00 History mcg (5,000 unit) tablet (Vitamin D3) gabapentin 600 mg tablet 600 mg PO BID 09/21/21 10/17/21 10/17/21 History memantine 10 mg tablet 10 mg PO BID 09/21/21 10/17/21 10/17/21 History sertraline 50 mg tablet 50 mg PO QPM 09/21/21 10/17/21 10/16/21 History Wheelchair #1 ea 10/02/21 10/17/21 Unknown Rx dapagliflozin 5 mg tablet (Farxiga) 5 mg PO QAM #30 tab 10/02/21 10/17/21 10/17/21 09:00 Rx rosuvastatin 10 mg tablet (Crestor) 10 mg PO DAILY #30 tab 10/05/21 10/17/21 2 Weeks Ago Rx ~10/03/21 see pharmacy comment acetaminophen 500 mg tablet 500 - 1,000 mg PO Q6H PRN 10/17/21 10/17/21 Unknown History calcium citrate 315 mg-vitamin D3 1 tab PO BID 10/17/21 10/17/21 10/17/21 History 5 mcg (200 unit) tablet diltiazem HCl 180 mg 180 mg PO QAM 10/17/21 10/17/21 10/17/21 History capsule,extended release 24 hr (Cardizem CD) furosemide 20 mg tablet 20 mg PO QAM 10/17/21 10/17/21 10/17/21 History sodium chloride 1 gram tablet 1,000 mg PO QAM 10/17/21 10/17/21 10/17/21 History tamsulosin 0.4 mg capsule (Flomax) 0.4 mg PO QAM 10/17/21 10/17/21 10/17/21 History Allergies Allergy/AdvReac Type Severity Reaction Status Date / Time No Known Allergies Allergy Verified 10/17/21 10:10 PFSH Acute PFSH: Medical History Acute pancreatitis MARTIN (acute kidney injury) Atrial fibrillation BPH loc w urin obs/LUTS Cardiomyopathy Cholelithiasis Chronic prostatitis Dehydration Diabetes mellitus with hyperglycemia, without long-term current use of insulin Family history of prostate cancer Hypertension Hyponatremia Hyponatremia syndrome Metabolic encephalopathy Neuropathy Osteoarthritis Pulmonary fibrosis Pulmonary HTN Surgical History Chronic neck pain with history of cervical spinal surgery H/O arthroscopy of right knee History of back surgery Family History Mother , at age 81 Cancer lung Father , at age 82 Cancer prostate Social History Second hand smoke exposure: No Alcohol intake: never Lives independently: Yes Household members: spouse Marital status: Current occupational status: retired History of recent travel: No Current gender identity: Male Vitals/I&O/Wt Last Vital Signs Temp 97.8 F 10/17/21 10:10 Pulse 98 10/17/21 14:00 Resp 20 H 10/17/21 14:00 BP 105/77 10/17/21 14:00 Pulse Ox 94 10/17/21 14:00 Weight last 48 hrs Weight 90.718 kg Physical Exam Narrative: Patient clinically looks dehydrated however bilateral lower extremity 2+ pitting edema He is awake and alert Very lethargic Currently on 3 L nasal cannula A. fib without RVR heart rate in 70s Cardizem drip at 5 Abdomen is soft Neurologically intact Nonfocal neuro exam Abdomen is soft however distended no signs of guarding rigidity or peritonitis No right upper quadrant tenderness Data : 10/17/21 09:51 10/17/21 09:51 A&P Assessment and plan (1) Atrial fibrillation with rapid ventricular response: Status: Acute (2) Neuropathy: Status: Chronic (3) BPH loc w urin obs/LUTS: Status: Chronic (4) Hypoxia: Status: Acute Plan Patient presented from [facility] with chief complaint of worsening of cough A. fib RVR Heart rate already better in 70s Overlap with metoprolol higher dose and turn off Cardizem next 2 hours Family has opted to initiate anticoagulating agent we will start Eliquis Recent gallstone pancreatitis Elective cholecystectomy Check potassium and magnesium levels Fall precautions Check venous Doppler to rule out DVT No signs of PE on CTA chest Cardiac diet DuoNeb every 4 as needed Acute hypoxia related to mild pleural effusion, wean to room air he was not using oxygen before No signs of pneumonia Hyponatremia Normal TSH and cortisol, continue salt tablets Congestive heart failure Does show signs of fluid buildup in his legs Continue Lasix Will transfer him to [facility] He does not need ICU Attestations Medical Necessity Statement*: I am anticipating he will be able to go back to see discharged within 48 hours Heart rate is already better Time Spent in Patient Care: 40 Coding Level of Care Code Acute Airfield Engineer Officer for g Fwd Diagnoses Atrial fibrillation with rapid ventricular response I48.91 Neuropathy G62.9 BPH loc w urin obs/LUTS N40.1 Hypoxia R09.02
--- NOTE | 2021-10-17 14:29 | USR_ITS ---
PROCEDURE INFORMATION: Exam: US Duplex Lower Extremity Veins, Bilateral Exam date and time: 10/17/2021 2:40 PM Age: 86 years old Clinical indication: Swelling (edema) of limb; Lower extremity, bilateral; Additional info: Swelling afib rvr TECHNIQUE: Imaging protocol: Real-time Duplex ultrasound of the bilateral extremities with 2-D carrasco scale, color Doppler flow and spectral waveform analysis with image documentation. Complete exam focused on the bilateral lower extremity veins. COMPARISON: CT abdomen pelvis wo con [id number] 09/26/2021 4:04 PM FINDINGS: Right deep veins: Unremarkable. The common femoral, femoral, proximal profunda femoral and popliteal veins are patent without thrombus. Normal Doppler waveforms. Normal compressibility and/or augmentation response. Right superficial veins: Saphenofemoral junction is patent without thrombus. Left deep veins: Unremarkable. The common femoral, femoral, proximal profunda femoral and popliteal veins are patent without thrombus. Normal Doppler waveforms. Normal compressibility and/or augmentation response. Left superficial veins: Saphenofemoral junction is patent without thrombus. Soft tissues: Unremarkable. US/CV venous duplex [facility] [id number] IMPRESSION: No evidence of deep vein thrombosis.
[2021-10-17] MEDS: metoprolol tartrate 25 mg Tablet PO (18:07)
--- NOTE | 2021-10-17 23:51 | PC.NURSE ---
AURE Harrington took over care of pt on 10/17/2021 on [id number]
[2021-10-18] VITALS (20 sets, daily range): BP systolic 97–130; BP diastolic 54–91; PULSE 72–117; RESP 16–26; TEMP 36.2–36.7; O2SAT 88–97
[2021-10-18 03:42] LABS: Basophils % 0.1 %; Hematocrit 31.7 % (42.0-52.0); Hemoglobin 10.5 g/dL (11.7-16.6); Lymphocytes # 0.9 10^3/uL (0.8-4.8); Lymphocytes % 7.2 %; Mean Corpuscular HGB Conc 33.1 g/dL (30.0-36.0); Mean Corpuscular Hemoglobin 29.3 pg (28.0-34.0); Mean Corpuscular Volume 88.5 fl (80-94); Mean Platelet Volume 9.6 fL (7.4-10.4); Monocytes # 0.2 10^3/uL (0.2-0.9); Monocytes % 1.8 %; Neutrophils # 11.01 10^3/uL (1.8-7.7); Neutrophils % 89.5 %; Nucleated Red Blood Cells % 0 %; Platelet Count 296 10^3/cmm (130-400); Red Blood Count 3.58 10^6/uL (4.1-5.3); Red Cell Distribution Width 14.6 % (12.1-15.1); White Blood Count 12.3 10^3/uL (4.0-10.0)
[2021-10-18 04:06] LABS: Anion Gap 21.8 (5-19); Blood Urea Nitrogen 20 mg/dL (8-23); Calcium 8.6 mg/dL (8.5-10.5); Carbon Dioxide 25 mmol/L (22-29); Chloride 91 mmol/L (98-107); Glucose 253 mg/dL (65-115); Magnesium 2.1 mg/dL (1.7-2.3); Osmolality Calculated 289 mOsm/kg (285-295); Potassium 3.8 mmol/L (3.5-5.1); Sodium 134 mmol/L (136-145)
[2021-10-18] MEDS: tamsulosin 0.4 mg Capsule PO (05:10)
[2021-10-18] MEDS: FUROsemide 20 mg Tablet PO (05:10)
[2021-10-18] MEDS: dilTIAZem ER (24HR) 180 mg Capsule PO (05:10)
[2021-10-18] MEDS: sodium chloride 1 gm Tablet PO (05:10)
[2021-10-18] MEDS: metoprolol tartrate 25 mg Tablet PO ×2 (08:52→13:22)
[2021-10-18] MEDS: apixaban 5 mg Tablet PO ×2 (08:52→20:37)
--- NOTE | 2021-10-18 09:10 | PC.NURSE ---
patient AO to self with intermittent confusion about location but reorients easily
--- NOTE | 2021-10-18 11:55 | PC.NURSE ---
Transferred to [place], at bedside
--- NOTE | 2021-10-18 12:00 | P.PN_ITS ---
Subjective Subjective: Patient is doing better heart rate in the 80s Cardizem drip at 5 Leukocytosis 12,000 Vitals/I&O/Wt Last Vital Signs Temp 97.8 F 10/17/21 10:10 Pulse 83 10/18/21 08:00 Resp 16 10/18/21 08:00 BP 105/77 10/17/21 14:00 Pulse Ox 93 10/18/21 08:00 10/17/21 10/18/21 10/18/21 22:59 06:59 14:59 Intake Total 540 / 540 81.833 / 621.833 Output Total 1400 / 1400 1050 / 2450 Balance -860 / -860 -968.167 / -1828.167 Weight last 48 hrs Weight 90.718 kg Physical Exam Narrative: Patient is awake and alert A. fib RVR has improved current heart rate is in 80s Sign of fluid overload bilateral lower extremity edema Patient is awake and alert nonfocal neuro exam Abdomen soft Currently on 3 L nasal cannula Patient is in good spirits Data : 10/18/21 03:13 10/18/21 03:13 A&P Assessment and plan (1) Hypoxia: Status: Acute (2) Atrial fibrillation with rapid ventricular response: Status: Acute (3) Neuropathy: Status: Chronic (4) BPH loc w urin obs/LUTS: Status: Chronic (5) Diabetes mellitus with hyperglycemia, without long-term current use of insulin: Status: Acute (6) Hyponatremia: Status: Acute (7) Osteoarthritis: Status: Acute Plan A. fib RVR Heart rate improved Continue Eliquis Continue p.o. AV bleen blocking agents Acute hypoxia related to pleural effusion, wean oxygen to room air Elective gallstone surgery outpatient Hyponatremia has improved continue salt tablets CHF acute exacerbation Continue Lasix Transferring back to [facility] tomorrow Attestations Medical Necessity Statement*: Discharge tomorrow Time Spent in Patient Care: 30 Coding Level of Care Code Acute Mimeographer for Maverick Fwd Diagnoses Hypoxia R09.02 Atrial fibrillation with rapid ventricular response I48.91 Neuropathy G62.9 BPH loc w urin obs/LUTS N40.1 Diabetes mellitus with hyperglycemia, without long-term current use of insulin E11.65 Hyponatremia E87.1 Osteoarthritis M19.90
[2021-10-18] MEDS: metoprolol tartrate 50 mg Tablet PO (20:37)
[2021-10-18] MEDS: temazepam 15 mg Capsule PO (23:49)
[2021-10-19] VITALS (9 sets, daily range): BP systolic 103–129; BP diastolic 71–99; PULSE 82–108; RESP 15–20; TEMP 36.4–36.8; O2SAT 91–99
[2021-10-19 03:19] LABS: Basophils % 0.1 %; Hematocrit 31.2 % (42.0-52.0); Hemoglobin 10.6 g/dL (11.7-16.6); Lymphocytes % 7.1 %; Mean Corpuscular Hemoglobin 29.4 pg (28.0-34.0); Mean Corpuscular Volume 86.4 fl (80-94); Mean Platelet Volume 9.1 fL (7.4-10.4); Monocytes # 0.5 10^3/uL (0.2-0.9); Monocytes % 3.5 %; Neutrophils # 12.39 10^3/uL (1.8-7.7); Nucleated Red Blood Cells % 0 %; Platelet Count 322 10^3/cmm (130-400); Red Blood Count 3.61 10^6/uL (4.1-5.3); Red Cell Distribution Width 14.6 % (12.1-15.1); White Blood Count 14.1 10^3/uL (4.0-10.0)
[2021-10-19 03:45] LABS: Anion Gap 15.5 (5-19); Blood Urea Nitrogen 29 mg/dL (8-23); Calcium 8.3 mg/dL (8.5-10.5); Carbon Dioxide 26 mmol/L (22-29); Chloride 96 mmol/L (98-107); Creatinine Clr Calc Pharmacy 80.5459; Glucose 262 mg/dL (65-115); Osmolality Calculated 293 mOsm/kg (285-295); Potassium 3.5 mmol/L (3.5-5.1); Sodium 134 mmol/L (136-145)
[2021-10-19] MEDS: FUROsemide 20 mg Tablet 40 MG PO (06:34)
[2021-10-19] MEDS: sodium chloride 1 gm Tablet PO (06:34)
[2021-10-19] MEDS: tamsulosin 0.4 mg Capsule PO (06:34)
[2021-10-19] MEDS: dilTIAZem ER (24HR) 180 mg Capsule PO (06:34)
--- NOTE | 2021-10-19 07:44 | PC.NURSE ---
received bedside report, reviewed poc and assumed care of patient. and daughter at bedside, no needs identified at this time.
[2021-10-19] MEDS: metoprolol tartrate 50 mg Tablet PO ×2 (09:24→18:35)
[2021-10-19] MEDS: apixaban 5 mg Tablet PO ×2 (09:24→20:24)
--- NOTE | 2021-10-19 09:30 | XRR_ITS ---
PROCEDURE INFORMATION: Exam: XR Chest Exam date and time: 10/19/2021 9:42 AM Age: 86 years old Clinical indication: Other: Congestion TECHNIQUE: Imaging protocol: XR of the chest. Views: 1 view. COMPARISON: CR (CHEST, ) 10/17/2021 10:26 AM FINDINGS: Lungs: Unremarkable. No consolidation. Pleural spaces: Unremarkable. No pleural effusion. No pneumothorax. Heart/Mediastinum: The cardiac silhouette is enlarged but unchanged. Bones/joints: Unremarkable. XR/XR chest 1V portable [id number] IMPRESSION: Stable cardiomegaly. No acute abnormality.
[2021-10-19] MEDS: cefTRIAXone 1,000 MG in sodium chloride 0.9% (plus) 50 ML 100 MG IV (16:35)
--- NOTE | 2021-10-19 16:55 | P.PN_ITS ---
Subjective Subjective: Daughter stating that overnight he was experiencing wet cough He could not sleep well This morning he was drowsy Genital swelling noted Went Acosta cath was placed purulent urine was collected by the nurse UA and culture requested Started ceftriaxone I also requested PT and ST evaluation as per the daughter r he has been aspirating food, He has been more confused today Vitals/I&O/Wt Last Vital Signs Temp 97.5 F L 10/19/21 15:11 Pulse 91 10/19/21 15:11 Resp 16 10/19/21 15:11 BP 118/89 10/19/21 15:11 Pulse Ox 99 10/19/21 15:11 10/19/21 10/19/21 10/19/21 06:59 14:59 22:59 Intake Total 360 / 360 Output Total 300 / 700 Balance -300 / 218.25 360 / 360 Physical Exam Narrative: Signs of congestive heart failure Crackles positive Lower extremity edema, genital edema Very drowsy however verbally redirectable On 1.5 L nasal cannula No acute respiratory distress No active chest pain Urinary Catheter Management: Acosta: Cath Placed During This Visit: yes Urinary Catheter Date of Insertion: 10/19/21 Urinary Catheter Time of Insertion: 14:58 Data : 10/19/21 02:44 10/19/21 02:44 A&P Assessment and plan (1) Hypoxia: Status: Acute (2) Atrial fibrillation with rapid ventricular response: Status: Acute (3) Cardiomyopathy: Status: Acute Qualifiers: Cardiomyopathy type: unspecified Qualified Code(s): I42.9 - Cardiomyopathy, unspecified (4) Neuropathy: Status: Chronic (5) BPH loc w urin obs/LUTS: Status: Chronic (6) UTI (urinary tract infection): Status: Acute Plan Metabolic encephalopathy Likely related to UTI UA sent Start ceftriaxone A. fib without RVR Continue AV belen blocking agent Initiated Eliquis CHF exacerbation Continue Lasix Very drowsy and lethargic PT evaluation along ST Acute hypoxia related to hypoventilation, repeat chest x-ray did not show any pneumonia, currently on 1.5 L, wean oxygen to room air Gallstones in the gallbladder, need elective surgery Full code De-escalated his diet today we will follow-up with speech therapy Attestations Medical Necessity Statement*: Continue medical management Time Spent in Patient Care: 30 Coding Level of Care Code Acute Architectural Sales Consultant for Chg Fwd Diagnoses Hypoxia R09.02 Atrial fibrillation with rapid ventricular response I48.91 Cardiomyopathy I42.9 Cardiomyopathy type: unspecified Neuropathy G62.9 BPH loc w urin obs/LUTS N40.1 UTI (urinary tract infection) N39.0
[2021-10-19 18:05] LABS: Add Urine Microscopic? YES; Bilirubin Urine Neg (Negative); Blood Urine 3+ (Negative); Glucose Urine UA 4+ (Normal); Ketones Urine Negative (Negative); Leukocyte Esterase Urine 2+ (Negative); Nitrate Urine Positive (Negative); Protein Urine Trace (Negative); Specific Gravity, Urine 1.005 (1.005-1.030); Urine Appearance Cloudy (CLEAR); Urine Color Yellow (Yellow); Urobilinogen Urine Norm (Negative); pH Urine 7 (5-7)
[2021-10-19 18:19] LABS: WBC Urine TOO NUMEROUS TO CNT /hpf (0-5)
[2021-10-19 18:20] LABS: Bacteria Urine 2+ /hpf; Squamous Epithelial Cell Urine 0-4 /hpf (0-5)
[2021-10-19 18:21] LABS: Add Urine Culture? Yes
[2021-10-19] MEDS: FUROsemide 40 mg Tablet PO (18:35)
--- NOTE | 2021-10-19 19:28 | PC.NURSE ---
Dr. Dillard notified of patient asking for Tramadol that he takes at home for back pain.
[2021-10-19] MEDS: TRAMadol 50 mg Tablet PO (20:24)
--- NOTE | 2021-10-19 20:56 | PC.NURSE ---
Dr. Dillard notified of blood glucose of 343. Notified that there is not sliding scale ordered on patient.
[2021-10-19] MEDS: insulin lispro 100 unit/1 mL SUBCUT (21:11)
[2021-10-19 21:18] LABS: Glucose Point of Care 343 mg/dL (70-110)
--- NOTE | 2021-10-19 21:26 | PC.NURSE ---
Heel protects placed on patient.
[2021-10-20] VITALS (13 sets, daily range): BP systolic 96–117; BP diastolic 62–83; PULSE 72–112; RESP 16–22; TEMP 36.7–37.4; O2SAT 93–96
[2021-10-20] MEDS: acetaminophen 500 mg Tablet PO (00:34)
--- NOTE | 2021-10-20 00:38 | PC.NURSE ---
Patient having difficulty sleeping. Family member at bedside asking for Benadryl for sinuses and sleep. Patient agreeable. Dr. Dillard notified.
[2021-10-20] MEDS: diphenhydrAMINE 25 mg Capsule PO (01:03)
[2021-10-20 03:27] LABS: Basophils % 0.1 %; Eosinophils # 0.1 10^3/uL (0.0-0.8); Eosinophils % 0.7 %; Hemoglobin 9.9 g/dL (11.7-16.6); Lymphocytes # 1.3 10^3/uL (0.8-4.8); Lymphocytes % 11.5 %; Mean Corpuscular HGB Conc 34.1 g/dL (30.0-36.0); Mean Corpuscular Hemoglobin 29.6 pg (28.0-34.0); Mean Corpuscular Volume 86.6 fl (80-94); Monocytes # 0.5 10^3/uL (0.2-0.9); Monocytes % 4.7 %; Neutrophils # 9.02 10^3/uL (1.8-7.7); Neutrophils % 82.2 %; Nucleated Red Blood Cells % 0 %; Platelet Count 243 10^3/cmm (130-400); Red Blood Count 3.35 10^6/uL (4.1-5.3); Red Cell Distribution Width 14.6 % (12.1-15.1)
[2021-10-20 03:39] LABS: Anion Gap 14.3 (5-19); Blood Urea Nitrogen 22 mg/dL (8-23); Calcium 7.8 mg/dL (8.5-10.5); Carbon Dioxide 27 mmol/L (22-29); Chloride 94 mmol/L (98-107); Creatinine Clr Calc Pharmacy 80.5459; Glucose 127 mg/dL (65-115); Osmolality Calculated 279 mOsm/kg (285-295); Potassium 3.3 mmol/L (3.5-5.1); Sodium 132 mmol/L (136-145)
[2021-10-20] MEDS: tamsulosin 0.4 mg Capsule PO (05:08)
[2021-10-20] MEDS: sodium chloride 1 gm Tablet PO (05:08)
[2021-10-20] MEDS: dilTIAZem ER (24HR) 180 mg Capsule PO (05:08)
--- NOTE | 2021-10-20 07:26 | PC.NURSE ---
received report, reviewed poc, assumed care of patient. no needs identified at this time
[2021-10-20] MEDS: ipratropium-albuterol 3 mL Neb INHALATION ×3 (07:59→21:57)
[2021-10-20] MEDS: metoprolol tartrate 50 mg Tablet PO (08:30)
[2021-10-20] MEDS: FUROsemide 40 mg Tablet PO (08:30)
[2021-10-20] MEDS: TRAMadol 50 mg Tablet PO (08:30)
[2021-10-20] MEDS: apixaban 5 mg Tablet PO ×2 (08:30→20:33)
--- NOTE | 2021-10-20 11:05 | PC.SLP ---
Patient continues to demonstrate signs/symptoms of aspiration. Will have nursing request MBS order for patient.
[2021-10-20 11:16] LABS: Glucose Point of Care 327 mg/dL (70-110)
[2021-10-20] MEDS: guaiFENesin-dextromethorphan UDC 10 mL PO (11:38)
[2021-10-20] MEDS: lidocaine 1% 5 ML in potassium chloride premix 100 ML 25 ML IV (11:38)
[2021-10-20] MEDS: FUROsemide 10 mg/mL SDV 10mL 60 MG IVP (11:38)
[2021-10-20] MEDS: benzonatate 100 mg Capsule 200 MG PO (11:38)
[2021-10-20] MEDS: insulin lispro 100 unit/1 mL SUBCUT ×2 (11:38→18:05)
--- NOTE | 2021-10-20 12:08 | P.PN_ITS ---
Subjective Subjective: Patient is on ceftriaxone Leukocytosis trending down Afebrile Hypokalemia repleted Patient is stating that his cough gets worse mostly at night when he lays supine I discussed the possibility of postnasal drip and GERD Added Protonix, Flonase, dextromethorphan and Tessalon Perles A. fib RVR heart rate fluctuating between 90-1 10 increase the dose of metoprolol Abnormal UA currently on ceftriaxone will wait for urine culture and sensitivity report before his discharge from the hospital Hyperglycemia Change Lasix to IV Vitals/I&O/Wt Last Vital Signs Temp 99.1 F 10/20/21 11:03 Pulse 99 10/20/21 11:03 Resp 16 10/20/21 11:03 BP 110/62 10/20/21 11:03 Pulse Ox 96 10/20/21 11:03 10/19/21 10/20/21 10/20/21 22:59 06:59 14:59 Intake Total 410 / 770 1440 / 2210 240 / 240 Output Total 1100 / 1100 1500 / 2600 Balance -690 / -330 -60 / -390 240 / 240 Physical Exam Narrative: Today he is much more awake and alert able to tell me his overnight events A. fib RVR heart rate fluctuating 90-1 10 Looks fluid overloaded Genital edema patient was the same as yesterday Acosta catheter in place He is awake and alert nonfocal neuro exam is at the bedside Currently on 1.5 L nasal cannula Abdomen is soft Crackles on lung auscultation Urinary Catheter Management: Acosta: Cath Placed During This Visit: yes Reason for Continuing Indwelling Catheter: Accurate Measurement of Urinary Output in Critically Ill Patients Urinary Catheter Date of Insertion: 10/19/21 Urinary Catheter Time of Insertion: 14:58 Data : 10/20/21 03:01 10/20/21 03:01 A&P Assessment and plan (1) UTI (urinary tract infection): Status: Acute (2) Atrial fibrillation with rapid ventricular response: Status: Acute (3) Cardiomyopathy: Status: Acute Qualifiers: Cardiomyopathy type: unspecified Qualified Code(s): I42.9 - Cardiomyopathy, unspecified (4) Atrial fibrillation: Status: Chronic (5) Hypoxia: Status: Acute (6) Diabetes mellitus with hyperglycemia, without long-term current use of insulin: Status: Acute (7) Hyponatremia: Status: Acute (8) Hypokalemia: Status: Acute Plan Acute CHF exacerbation, preserved action fraction heart failure exacerbation I will switch his Lasix to IV Acosta catheter has been placed UTI Pyuria Assessment is pending I have added ceftriaxone Leukocytosis trending down, creatinine normal, no fever A. fib RVR Increase the dose of metoprolol Started Eliquis Hyponatremia is appropriate to hyperglycemia Hemoglobin A1c 6.8 Medium dose sliding scale we will add low-dose Lantus Type 2 diabetes Hyperglycemia Hypokalemia: Potassium repleted Acute hypoxia No signs of aspiration pneumonia Speech therapy recommended dysphagia diet Generalized weakness and deconditioning No focal deficit Is awake and alert and oriented Check phosphorus level Low threshold to get CT head without contrast will stay low however no acute strokelike features Full code Dysphagia level [address] evaluation Attestations Medical Necessity Statement*: Continue medical treatment for his UTI, CHF exacerbation plan to discharge him back to [facility] in next 48 hours Time Spent in Patient Care: 40 Coding Level of Care Code Acute Telemetry Technician for g Fwd Diagnoses UTI (urinary tract infection) N39.0 Atrial fibrillation with rapid ventricular response I48.91 Cardiomyopathy I42.9 Cardiomyopathy type: unspecified Atrial fibrillation I48.91 Hypoxia R09.02 Diabetes mellitus with hyperglycemia, without long-term current use of insulin E11.65 Hyponatremia E87.1 Hypokalemia E87.6
--- NOTE | 2021-10-20 12:19 | USCV_ITS ---
Devan Chalo Age: 86 Gender: M : 1935 Exam Date: 10/20/2021 14:53 Ordering Phys: Tiki Verma MD Technologist: JEFF [place]am Location[place] [facility] [place]: CHRONIC HEART FAILURE BP: 110 / 62 HR: 96 Rhythm: Atrial fibrillation Technical Quality: Technically difficult study MEASUREMENTS (Male / Female) Normal Values 2D ECHO LA Width 4.5 cm LA Height 7.0 cm RA Width 3.9 cm RA Height 5.7 cm DOPPLER MV Peak Velocity 74.0 cm/s MV Area PHT 4.5 cm squared MV E' Velocity 36.0 cm/s Mitral E to MV E' Ratio 7.4 Mitral E to LV E' Lateral Ratio 6.8 Mitral E to LV E' Septal Ratio 8.1 TR Peak Velocity 177.0 cm/s TR Peak Gradient 12.5 mmHg TR Mean Velocity 123.5 cm/s TR Mean Gradient 7.1 mmHg TR Velocity Time Integral 40.1 cm TV Peak E Velocity 61.0 cm/s Right Atrial Pressure 8.0 mmHg Pulmonary Artery Systolic Pressu 20.5 mmHg PV Peak Velocity 94.0 cm/s RV Acceleration Time 0.1 s RV Ejection Time 0.3 s RV AcT/ET 0.2 FINDINGS Left Ventricle Normal left ventricular cavity size and grossly normal systolic function. Left ventricular ejection fraction is estimated at 60 %. Although no diagnostic regional wall motion abnormality could be identified, this possibility cannot be completely excluded. Right Ventricle Normal right ventricular size and systolic function. Right Atrium Normal right atrial size. Left Atrium Mildly increased left atrial size. Mitral Valve Structurally normal mitral valve. No mitral valve regurgitation. Aortic Valve Aortic valve not well visualized. Tricuspid Valve Structurally normal tricuspid valve. Pulmonic Valve Pulmonic valve not well visualized. Trace pulmonary valve regurgitation. Pericardium No pericardial effusion. Aorta Aorta not well visualized. IVC Inferior vena cava not visualized. CONCLUSIONS 1. This is a technically difficult study. 2. Normal left ventricular cavity size and grossly normal systolic function. Left ventricular ejection fraction is estimated at 60 %. Although no diagnostic regional wall motion abnormality could be identified, this possibility cannot be completely excluded. 3. No significant change when compared to study dated 04/28/2020. Marnie Keith MD (Electronically Signed) Final Date: 22 October 2021 10:07 S
[2021-10-20 13:13] LABS: Estmated Average Glucose 177; Hemoglobin A1C 7.8 % (4.0-6.0)
[2021-10-20 13:18] LABS: Magnesium 1.9 mg/dL (1.7-2.3); Phosphorus 2.6 mg/dL (2.5-4.5)
[2021-10-20] MEDS: cefTRIAXone 1,000 MG in sodium chloride 0.9% (plus) 50 ML 100 MG IV (14:35)
[2021-10-20 17:16] LABS: Glucose Point of Care 293 mg/dL (70-110)
[2021-10-20] MEDS: fluticasone nasal spray 16gm Btl 1 SPRAY NASAL (18:02)
[2021-10-20] MEDS: metoprolol tartrate 50 mg Tablet 100 MG PO (18:04)
[2021-10-20] MEDS: pantoprazole DR 40 mg Tablet PO (18:04)
[2021-10-21] VITALS (12 sets, daily range): BP systolic 95–147; BP diastolic 58–95; PULSE 72–104; RESP 15–20; TEMP 36.8–37.6; O2SAT 90–98
[2021-10-21] MEDS: ipratropium-albuterol 3 mL Neb INHALATION (03:46)
[2021-10-21 04:04] LABS: Basophils % 0.2 %; Eosinophils # 0.1 10^3/uL (0.0-0.8); Eosinophils % 0.5 %; Hematocrit 30.5 % (42.0-52.0); Lymphocytes # 1.4 10^3/uL (0.8-4.8); Lymphocytes % 11.6 %; Mean Corpuscular HGB Conc 32.8 g/dL (30.0-36.0); Mean Corpuscular Hemoglobin 29.2 pg (28.0-34.0); Mean Corpuscular Volume 89.2 fl (80-94); Mean Platelet Volume 9.3 fL (7.4-10.4); Monocytes # 0.5 10^3/uL (0.2-0.9); Monocytes % 3.8 %; Neutrophils # 10.11 10^3/uL (1.8-7.7); Neutrophils % 83.3 %; Nucleated Red Blood Cells % 0 %; Platelet Count 242 10^3/cmm (130-400); Red Blood Count 3.42 10^6/uL (4.1-5.3); Red Cell Distribution Width 14.6 % (12.1-15.1); White Blood Count 12.1 10^3/uL (4.0-10.0)
[2021-10-21 04:31] LABS: Alanine Aminotransferase 57 U/L (0-41); Albumin Level 2.7 g/dL (3.5-5.2); Alkaline Phosphatase 101 IU/L (40-130); Anion Gap 11.7 (5-19); Aspartate Amino Transferase 45 U/L (0-40); Blood Urea Nitrogen 19 mg/dL (8-23); Calcium 8.3 mg/dL (8.5-10.5); Carbon Dioxide 30 mmol/L (22-29); Chloride 96 mmol/L (98-107); Creatinine Clr Calc Pharmacy 80.5459; Globulin 2.9 g/dL (1.3-4.6); Glucose 192 mg/dL (65-115); Osmolality Calculated 285 mOsm/kg (285-295); Potassium 3.7 mmol/L (3.5-5.1); Sodium 134 mmol/L (136-145); Total Bilirubin 0.5 mg/dL (0.15-1.2); Total Protein 5.6 g/dL (6.6-8.7)
[2021-10-21] MEDS: dilTIAZem ER (24HR) 180 mg Capsule PO (05:21)
[2021-10-21] MEDS: tamsulosin 0.4 mg Capsule PO (05:21)
[2021-10-21] MEDS: sodium chloride 1 gm Tablet PO (05:21)
[2021-10-21 06:43] LABS: Glucose Point of Care 205 mg/dL (70-110)
[2021-10-21] MEDS: insulin lispro 100 unit/1 mL SUBCUT ×2 (09:36→13:48)
[2021-10-21] MEDS: guaiFENesin-dextromethorphan UDC 10 mL PO ×2 (09:37→21:55)
[2021-10-21] MEDS: metoprolol tartrate 50 mg Tablet 100 MG PO (09:37)
[2021-10-21] MEDS: apixaban 5 mg Tablet PO ×2 (09:37→20:48)
[2021-10-21] MEDS: pantoprazole DR 40 mg Tablet PO ×2 (09:37→17:21)
[2021-10-21] MEDS: benzonatate 100 mg Capsule 200 MG PO ×2 (09:37→21:55)
--- NOTE | 2021-10-21 10:45 | FL_ITS ---
WS: [id number] Modified barium swallow, 10/21/2021 Clinical Data: Oral dysphagia Comparison: None. Fluoroscopy time: 0min [id number] # of spot films: Findings: The patient was able to propel the oral bolus normally. However in the hypopharynx there was a large amount of vallecular pooling which cleared slightly with multiple swallows. Then there was aspiration with persistent coughing. FL/FL barium swallow modifd [id number] Impression: Significant aspiration and the study was terminated.
[2021-10-21 11:55] LABS: Glucose Point of Care 297 mg/dL (70-110)
--- NOTE | 2021-10-21 12:20 | CT_ITS ---
WS: [id number] CT HEAD NONCONTRAST HISTORY: Dysphagia TECHNIQUE: Contiguous axial imaging performed through the brain in 2.5 mm imaging. Bone and soft tiss ue windows. Sagittal and coronal reformats reviewed. All CT scans at [facility] use at least one of these dose optimization techniques: automated exposure control; mA and/or kV adjustment per pa tient size (includes targeted exams where dose is matched to clinical indication); or iterative recon struction. DLP: 979.48 mGy.cm COMPARISON: 02/22/2021 No acute intracranial hemorrhage, midline shift or mass effect. Moderate atrophy and small vessel ischemic disease. Ventricles: Mild ventriculomegaly and the extra-axial spaces are prominent also on the basis of atro phy. No inferior displacement of the cerebellar tonsils. Marked calcification in the distal vertebral quynh dianna and also within the intracranial carotid arteries. Paranasal sinuses: As visualized are clear. Mastoid air cells: Well pneumatized. Calvarium and scalp: Skull is intact with no soft tissue edema or swelling. CT/CT head wo con* [id number] IMPRESSION: 1. No acute intracranial hemorrhage or edema. 2. Moderate atrophy and small vessel ischemic changes. Stable since 02/22/2021 .
[2021-10-21] MEDS: pyridostigmine 60 mg Tablet PO ×4 (13:00→20:48)
--- NOTE | 2021-10-21 13:25 | P.PN_ITS ---
Subjective Subjective: Morning patient was awake and alert He was not on oxygen, on room air he was saturating 86 to 88%, I had to put him on 2 L nasal cannula Improved with saturations of 94% Daughter and at the bedside I read discussed the indication and contusion of Eliquis, during hospitalization they are agreeable for Eliquis usage however because of extreme weakness lethargy and deconditioning he will be high risk of falls, will not continue Eliquis For UTI I am still waiting on culture and sensitivity report Leukocytosis 12,000 afebrile Significant aspiration as per modified barium swallow no signs of stroke, CT head reviewed clinically does not show any signs of stroke With swallowing, weakness, memory deficit I have started pyridostigmine as a trial He is not ready to be discharged Still showing signs of fluid overload Cough has not improved despite all the treatment that was started yesterday He is still hyperglycemic A. fib RVR improved with increase of metoprolol, Vitals/I&O/Wt Last Vital Signs Temp 99.4 F 10/21/21 03:34 Pulse 72 10/21/21 12:00 Resp 18 10/21/21 12:00 BP 95/58 10/21/21 12:00 Pulse Ox 97 10/21/21 12:00 10/20/21 10/21/21 10/21/21 22:59 06:59 14:59 Intake Total 515 / 995 0 / 995 360 / 360 Output Total 2150 / 2150 1100 / 3250 Balance -1635 / -1155 -1100 / -2255 360 / 360 Physical Exam Narrative: Patient is awake and alert On 2 L nasal cannula Dysphagia Able to move his extremities no active focal deficits noted EOMI, PERRLA No tongue deviation Mucous membranes are dry Acosta catheter draining dilute urine Abdomen is soft Bilateral breath sounds with rhonchi at the base of the lungs Abdomen soft Daughter and at the bedside Genital edema, lower extremity 2+ pitting edema Urinary Catheter Management: Acosta: Cath Placed During This Visit: yes Reason for Continuing Indwelling Catheter: Accurate Measurement of Urinary Output in Critically Ill Patients Urinary Catheter Date of Insertion: 10/19/21 Urinary Catheter Time of Insertion: 14:58 Data : 10/21/21 03:34 10/21/21 03:34 Micro: Microbiology 10/19/21 14:50 Urine Culture - Preliminary Urine,Clean Catch Gram Negative Rods A&P Assessment and plan (1) Hypokalemia: Status: Acute (2) UTI (urinary tract infection): Status: Acute (3) Hypoxia: Status: Acute (4) Atrial fibrillation with rapid ventricular response: Status: Acute (5) Cardiomyopathy: Status: Acute Qualifiers: Cardiomyopathy type: unspecified Qualified Code(s): I42.9 - Cardiomyopathy, unspecified (6) Atrial fibrillation: Status: Chronic (7) Neuropathy: Status: Chronic (8) 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 Lasix Hypokalemia: Repleted Dysphagia Myasthenia gravis? No signs of stroke Modified barium swallow report reviewed Currently on dysphagia level 2 diet Acute hypoxia Afebrile, leukocytosis 12,000 Not typical aspiration pneumonia signs on the x-ray He is high risk UTI: Ceftriaxone, sensitivity culture report pending A. fib RVR: Improved however due to low blood pressure after cut back on his Cardizem and metoprolol dosages Patient, his and daughter decided against continuation of Eliquis at the time of discharge because of his high risk of fall During hospitalization continue Eliquis as he in a supervised environment Deconditioning and generalized weakness Adding pyridostigmine Phosphorus levels are normal CT head unremarkable Goals of care discussed with the patient, his and her his daughter he does not want to be resuscitated, defibrillated or put on a mechanical ventilator I will change his CODE STATUS to DNR/DNI Consistent carb diet Hyperglycemia Type 2 diabetes Uncontrolled add Lantus to 5 units Daily PT and ST I will monitor for next 24 to 30 hours to see if we can send him back to intermediate, very deconditioned, multiple comorbid conditions, and will take time to recover this was conveyed to the family and the patient clearly in layman terms Attestations Medical Necessity Statement*: Discharge in next [address] [facility] Time Spent in Patient Care: 30 Coding Level of Care Code Acute Manager Domestic for Maverick Butler Diagnoses Hypokalemia E87.6 UTI (urinary tract infection) N39.0 Hypoxia R09.02 Atrial fibrillation with rapid ventricular response I48.91 Cardiomyopathy I42.9 Cardiomyopathy type: unspecified Atrial fibrillation I48.91 Neuropathy G62.9 BPH loc w urin obs/LUTS N40.1 Diabetes mellitus with hyperglycemia, without long-term current use of insulin E11.65 Hyponatremia E87.1
--- NOTE | 2021-10-21 13:36 | XR_ITS ---
WS: [id number] Portable AP upright chest, 10/21/2021 Clinical Data: aspiration Comparison: Portable chest, 10/19/2021 Findings: No nodules, masses or effusions are seen. The heart is enlarged. The pulmonary vascularity is not increased. No pneumonia or pneumothorax is seen. Monitor leads are on the chest wall. There is osteoarthritic change of the inferior right glenoid and also the left glenoid.. XR/XR chest 1V portable [id number] Impression: Negative chest.
[2021-10-21] MEDS: cefTRIAXone 1,000 MG in sodium chloride 0.9% (plus) 50 ML 100 MG IV (16:03)
[2021-10-21 16:53] LABS: Glucose Point of Care 119 mg/dL (70-110)
[2021-10-21] MEDS: phosphorus 250 mg Tablet PO (17:20)
[2021-10-21] MEDS: metoprolol tartrate 50 mg Tablet PO (20:48)
[2021-10-21] MEDS: insulin glargine 100 units/1 mL 5 UNIT SUBCUT (20:48)
[2021-10-21 22:57] LABS: Glucose Point of Care 246 mg/dL (70-110)
[2021-10-22] VITALS (10 sets, daily range): BP systolic 115–145; BP diastolic 62–82; PULSE 89–106; RESP 16–26; TEMP 36.3–37.2; O2SAT 91–95
[2021-10-22 04:32] LABS: Basophils % 0.1 %; Eosinophils # 0.1 10^3/uL (0.0-0.8); Eosinophils % 0.7 %; Hematocrit 31.3 % (42.0-52.0); Hemoglobin 10.2 g/dL (11.7-16.6); Lymphocytes # 1.5 10^3/uL (0.8-4.8); Lymphocytes % 10.7 %; Mean Corpuscular HGB Conc 32.6 g/dL (30.0-36.0); Mean Corpuscular Hemoglobin 29.4 pg (28.0-34.0); Mean Corpuscular Volume 90.2 fl (80-94); Mean Platelet Volume 9.2 fL (7.4-10.4); Monocytes # 0.5 10^3/uL (0.2-0.9); Monocytes % 3.8 %; Neutrophils % 83.8 %; Nucleated Red Blood Cells % 0 %; Platelet Count 229 10^3/cmm (130-400); Red Blood Count 3.47 10^6/uL (4.1-5.3); Red Cell Distribution Width 14.9 % (12.1-15.1); White Blood Count 14.3 10^3/uL (4.0-10.0)
[2021-10-22 04:55] LABS: Alanine Aminotransferase 59 U/L (0-41); Albumin Level 2.6 g/dL (3.5-5.2); Alkaline Phosphatase 115 IU/L (40-130); Anion Gap 12.9 (5-19); Aspartate Amino Transferase 56 U/L (0-40); Blood Urea Nitrogen 16 mg/dL (8-23); Carbon Dioxide 29 mmol/L (22-29); Chloride 95 mmol/L (98-107); Creatinine Clr Calc Pharmacy 80.5459; Glucose 184 mg/dL (65-115); Osmolality Calculated 282 mOsm/kg (285-295); Potassium 3.9 mmol/L (3.5-5.1); Sodium 133 mmol/L (136-145); Total Bilirubin 0.6 mg/dL (0.15-1.2); Total Protein 5.6 g/dL (6.6-8.7)
[2021-10-22] MEDS: dilTIAZem ER (24HR) 120 mg Capsule PO (06:48)
[2021-10-22] MEDS: sodium chloride 1 gm Tablet PO (06:48)
[2021-10-22] MEDS: tamsulosin 0.4 mg Capsule PO (06:48)
--- NOTE | 2021-10-22 08:00 | MR_ITS ---
WS: [id number] MRI HEAD WITHOUT CONTRAST TECHNIQUE: Sagittal T1, T2 axial, T2 axial FLAIR, axial and coronal T1 images, axial susceptibility w eighted imaging, axial diffusion weighted images, and coronal T2 images were obtained. CLINICAL INFORMATION: dysphagia, r/o stroke COMPARISON: CT head October 21, 2021 FINDINGS: No evidence of restricted diffusion to suggest acute ischemia. Ventricular system and basal cisterns are patent. Mild small vessel changes. Moderate parenchymal volume loss. Tiny chronic lacunar infarct LEFT thalamus. Normal vascular flow voids at the skull base. No extra-axial fluid collections. No ev idence of mass or mass effect. Paranasal sinuses are well aerated. Mastoid air cells well aerated. No hemosiderin on the susceptibility weighted images. Normal optic chiasm and pituitary infundibulum. Advanced symmetric atrophy temporal lobes and hippocampal formations. Normal cavernous sinuses and M dinora's cave. Mild to moderate central canal stenosis in the upper cervical spine at C3-C5. This is p artially visualized. This can be followed up with cervical spine MRI MR/MR head wo con* [id number] IMPRESSION: 1. No evidence of restricted diffusion to suggest acute ischemia. 2. Mild small vessel changes. Moderate parenchymal volume loss. Paranasal sinu ses and mastoid air cells are well aerated. 3. No hemosiderin on susceptibly weighted images. 4. Advanced symmetric atrophy temporal lobes and hippocampal formations. 5. Mild to moderate central canal stenosis in the upper cervical spine partial ly visualized at C3-C5. This can be further evaluated with MRI cervical spine w ithout gadolinium enhancement.
[2021-10-22 09:22] LABS: Glucose Point of Care 251 mg/dL (70-110)
[2021-10-22] MEDS: benzonatate 100 mg Capsule 200 MG PO (10:25)
[2021-10-22] MEDS: pyridostigmine 60 mg Tablet PO ×2 (10:26→17:38)
[2021-10-22] MEDS: FUROsemide 40 mg Tablet PO (10:26)
[2021-10-22] MEDS: phosphorus 250 mg Tablet PO ×2 (10:26→17:38)
[2021-10-22] MEDS: pantoprazole DR 40 mg Tablet PO ×2 (10:26→17:38)
[2021-10-22] MEDS: metoprolol tartrate 50 mg Tablet PO ×2 (10:26→20:46)
[2021-10-22] MEDS: fluticasone nasal spray 16gm Btl 1 SPRAY NASAL ×2 (10:27→17:39)
--- NOTE | 2021-10-22 12:08 | P.PN_ITS ---
Subjective Subjective: Patient is not noticing overnight events however patient and his family decided to pursue hospice care at home, onsite case manager has been updated Vitals/I&O/Wt Last Vital Signs Temp 97.8 F 10/22/21 12:04 Pulse 89 10/22/21 12:04 Resp 25 H 10/22/21 12:04 BP 115/65 10/22/21 12:04 Pulse Ox 91 10/22/21 12:04 10/21/21 10/22/21 10/22/21 22:59 06:59 14:59 Intake Total 290 / 650 118 / 118 Balance 290 / 650 118 / 118 Physical Exam Narrative: Clinical signs of fluid overload Third spacing Very fatigued and lethargic Does not have typical signs of myasthenia gravis No new focal deficits Currently on 1.5 to 2 L of oxygen Abdomen is soft Genital edema Lower extremity 2+ pitting edema Comfortable no active pain Urinary Catheter Management: Acosta: Cath Placed During This Visit: yes Reason for Continuing Indwelling Catheter: Accurate Measurement of Urinary Output in Critically Ill Patients Urinary Catheter Date of Insertion: 10/19/21 Urinary Catheter Time of Insertion: 14:58 Data : 10/22/21 04:10 10/22/21 04:10 Micro: Microbiology 10/19/21 14:50 Urine Culture - Preliminary Urine,Clean Catch Gram Negative Rods A&P Assessment and plan (1) Hypokalemia: Status: Acute (2) UTI (urinary tract infection): Status: Acute (3) Hypoxia: Status: Acute (4) Atrial fibrillation with rapid ventricular response: Status: Acute (5) Cardiomyopathy: Status: Acute Qualifiers: Cardiomyopathy type: unspecified Qualified Code(s): I42.9 - Cardiomyopathy, unspecified (6) Atrial fibrillation: Status: Chronic (7) Neuropathy: Status: Chronic (8) 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 fib without RVR He will not get Eliquis at the time of discharge because of his risk of falls Acute hypoxia related to hypoventilation no signs of aspiration pneumonia currently on 1 to 1.5 L oxygen Still hyperglycemic, I will escalate his Lantus to 10 units Very fatigued and lethargic However awake and alert MRI head is pending UTI with gram-negative rods continue ceftriaxone White count 14,000 without any fever Attestations Medical Necessity Statement*: Discharge home tomorrow Time Spent in Patient Care: 20 Coding Level of Care Code Acute Marketing Account Manager for Chg Fwd Diagnoses Hypokalemia E87.6 UTI (urinary tract infection) N39.0 Hypoxia R09.02 Atrial fibrillation with rapid ventricular response I48.91 Cardiomyopathy I42.9 Cardiomyopathy type: unspecified Atrial fibrillation I48.91 Neuropathy G62.9 BPH loc w urin obs/LUTS N40.1 Diabetes mellitus with hyperglycemia, without long-term current use of insulin E11.65 Hyponatremia E87.1
[2021-10-22 12:17] LABS: Glucose Point of Care 269 mg/dL (70-110)
[2021-10-22] MEDS: insulin lispro 100 unit/1 mL SUBCUT ×2 (12:54→17:39)
--- NOTE | 2021-10-22 16:08 | PC.SOCIAL ---
IMM UPDATED IMM dated and initialed, copy placed in chart and copy given to patient
[2021-10-22 16:55] LABS: Glucose Point of Care 219 mg/dL (70-110)
[2021-10-22] MEDS: cefTRIAXone 1,000 MG in sodium chloride 0.9% (plus) 50 ML 100 MG IV (17:39)
[2021-10-22] MEDS: insulin glargine 100 units/1 mL 5 UNIT SUBCUT (20:46)
[2021-10-22 20:49] LABS: Glucose Point of Care 182 mg/dL (70-110)
--- NOTE | 2021-10-22 23:24 | PC.NURSE ---
patient observed to have extended run of possible v-tach on telemetry. Patient assessed. Responds appropriately. Informed Dr Carter. No new orders received as patient is DNR and possible to d/c tomorrow with hospice referral. Strips printed and placed in chart.
[2021-10-23] VITALS (9 sets, daily range): BP systolic 111–140; BP diastolic 73–86; PULSE 89–109; RESP 18–22; TEMP 37.1–37.3; O2SAT 91–96
[2021-10-23] MEDS: dilTIAZem ER (24HR) 120 mg Capsule PO (05:12)
[2021-10-23] MEDS: tamsulosin 0.4 mg Capsule PO (05:12)
[2021-10-23 06:14] LABS: Glucose Point of Care 175 mg/dL (70-110)
[2021-10-23] MEDS: phosphorus 250 mg Tablet PO (09:41)
[2021-10-23] MEDS: metoprolol tartrate 50 mg Tablet PO (09:41)
[2021-10-23] MEDS: FUROsemide 40 mg Tablet PO (09:42)
[2021-10-23] MEDS: pantoprazole DR 40 mg Tablet PO (09:42)
[2021-10-23] MEDS: insulin lispro 100 unit/1 mL SUBCUT ×2 (09:48→12:41)
--- NOTE | 2021-10-23 10:52 | P.DS_ITS ---
Discharge Providers Date of Admission: 10/19/21 16:46 Date of Discharge: October 23, 2021 Attending Provider at Admission: Margot Dia MD Attending Provider at Discharge: Tiki Verma MD Primary Care Provider: Pamela Aguila MD Diagnoses at Discharge Discharge Diagnosis (1) Hypokalemia: Status: Acute (2) UTI (urinary tract infection): Status: Acute (3) Hypoxia: Status: Acute (4) Atrial fibrillation with rapid ventricular response: Status: Acute (5) Cardiomyopathy: Status: Acute Qualifiers: Cardiomyopathy type: unspecified Qualified Code(s): I42.9 - Cardiomyopathy, unspecified (6) Atrial fibrillation: Status: Chronic (7) Neuropathy: Status: Chronic (8) 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 Hartman who was recently discharged from the hospital presented with chief complaint of worsening cough. He was diagnosed with A. fib RVR, required Cardizem drip for short amount. He, initially family decided to opt for Eliquis in anticipation that he will be under supervised environment and will be able to prevent falls. His hospitalization was remarkable for new onset dysphagia, CT head and MRI head unremarkable no new strokelike features were identified. He has been gradually declining throughout his hospitalization, he also had lower extremity edema along with genital edema, echo showed preserved ejection fraction diastolic dysfunction heart failure for which he required diuretics after placement of Acosta catheter. He was requiring 1 to 2 L of oxygen which was also new, no signs of aspiration pneumonia as per the recent chest x-ray. This was likely secondary to hypoventilation. He was extremely lethargic and fatigued, initially there was plan to [facility] back to his [facility] however after multiple family discussions and his slow recovery and poor prognosis due to multiple comorbid conditions family and the patient decided to opt for home hospice care. He is on ground level 2 dysphagia diet with thickened liquid consistency. He is not able to walk without assistance. Modified barium swallow showed significant aspiration. No signs of brainstem stroke. Target heart rate for A. fib less than 110. Family decided against Eliquis because of his worsening functional decline. Physical Exam Narrative: Clinical signs of fluid overload Third spacing Very fatigued and lethargic Does not have typical signs of myasthenia gravis No new focal deficits Currently on 1.5 to 2 L of oxygen Abdomen is soft Genital edema Lower extremity 2+? pitting edema Comfortable no active pain Urinary Catheter Management: Acosta: Cath Placed During This Visit: yes Reason for Continuing Indwelling Catheter: Assist Healing of Perineal & Sacral Wounds- Incontinent Patients Urinary Catheter Date of Insertion: 10/19/21 Urinary Catheter Time of Insertion: 14:58 Discharge Data Studies Completed and Pending Completed Studies During Hospitalization Category Date Time Status CT angio chest PE protcl [id number] Urgent Cat Scan 10/17/21 11:[address] head wo con* [id number] Routine Cat Scan 10/21/21 12:20 Completed FL barium swallow modifd [id number] Routine Exams 10/21/21 10:45 Completed XR chest 1V portable [id number] Routine Exams 10/19/21 09:30 Completed XR chest 1V portable [id number] Routine Exams 10/21/21 13:36 Completed XR chest 1V portable [id number] Urgent Exams 10/17/21 10:18 Completed MR head wo con* [id number] Urgent MRI 10/22/21 08:00 [place] [id number] Routine Ultrasound 10/17/21 14:29 Completed CV. echo complete* [id number] Routine Ultrasound 10/20/21 12:19 Completed Radiology Impressions Chest CTA 10/17/21 11:34 IMPRESSION: 1. No evidence of pulmonary embolus or aortic aneurysm/dissection. 2. Cardiomegaly and coronary artery calcification. 3. Moderate bilateral pleural effusions with bibasilar atelectasis. Venous Duplex 10/17/21 14:29 IMPRESSION: No evidence of deep vein thrombosis. Modified Barium Swallow 10/21/21 10:45 Impression: Significant aspiration and the study was terminated. Head CT 10/21/21 12:20 IMPRESSION: 1. No acute intracranial hemorrhage or edema. 2. Moderate atrophy and small vessel ischemic changes. Stable since 02/22/2021. Chest X-Ray 10/21/21 13:36 Impression: Negative chest. Head MRI 10/22/21 08:00 IMPRESSION: 1. No evidence of restricted diffusion to suggest acute ischemia. 2. Mild small vessel changes. Moderate parenchymal volume loss. Paranasal sinuses and mastoid air cells are well aerated. 3. No hemosiderin on susceptibly weighted images. 4. Advanced symmetric atrophy temporal lobes and hippocampal formations. 5. Mild to moderate central canal stenosis in the upper cervical spine partially visualized at C3-C5. This can be further evaluated with MRI cervical spine without gadolinium enhancement. Laboratory Results WBC 14.3 10^3/uL (4.0-10.0) H 10/22/21 04:10 RBC 3.47 10^6/uL (4.1-5.3) L 10/22/21 04:10 Hgb 10.2 g/dL (11.7-16.6) L 10/22/21 04:10 Hct 31.3 % (42.0-52.0) L 10/22/21 04:10 MCV 90.2 fl (80-94) 10/22/21 04:10 MCH 29.4 pg (28.0-34.0) 10/22/21 04:10 MCHC 32.6 g/dL (30.0-36.0) 10/22/21 04:10 RDW 14.9 % (12.1-15.1) 10/22/21 04:10 Plt Count 229 10^3/cmm (130-400) 10/22/21 04:10 MPV 9.2 fL (7.4-10.4) 10/22/21 04:10 Neut % (Auto) 83.8 % 10/22/21 04:10 Lymph % (Auto) 10.7 % 10/22/21 04:10 Russell % (Auto) 3.8 % 10/22/21 04:10 Eos % (Auto) 0.7 % 10/22/21 04:10 Baso % (Auto) 0.1 % 10/22/21 04:10 Neut # (Auto) 12.00 10^3/uL (1.8-7.7) H 10/22/21 04:10 Lymph # (Auto) 1.5 10^3/uL (0.8-4.8) 10/22/21 04:10 Russell # (Auto) 0.5 10^3/uL (0.2-0.9) 10/22/21 04:10 Eos # (Auto) 0.1 10^3/uL (0.0-0.8) 10/22/21 04:10 Baso # (Auto) 0.0 10^3/uL (0.0-0.1) 10/22/21 04:10 Nucleated RBC % (auto) 0 % 10/22/21 04:10 Nucleated RBCs # 0.0 /100WBC 10/22/21 04:10 Specimen Type Arterial 10/17/21 10:44 Sample Site Radial, right 10/17/21 10:44 ABG pH 7.50 (7.35-7.45) H 10/17/21 10:44 ABG pCO2 36.1 mmHg (35-45) 10/17/21 10:44 ABG pO2 73.2 mmHg (80.0-100.0) L 10/17/21 10:44 ABG HCO3 28.4 mmol/L (22-26) H 10/17/21 10:44 ABG Base Excess 5.0 mmol/L (-2.0-2.0) H 10/17/21 10:44 Holland Test Pos 10/17/21 10:44 Hematocrit 31.5 % (42-52) L 10/17/21 10:44 O2 Delivery Device Nc 10/17/21 10:44 O2 Liters/Min 3.0 % 10/17/21 10:44 FiO2 32.0 % 10/17/21 10:44 Learning Operations Specialist ID Amh 10/17/21 10:44 Sodium 133 mmol/L (136-145) L 10/22/21 04:10 Potassium 3.9 mmol/L (3.5-5.1) 10/22/21 04:10 Chloride 95 mmol/L (98-107) L 10/22/21 04:10 Carbon Dioxide 29 mmol/L (22-29) 10/22/21 04:10 Anion Gap 12.9 (5-19) 10/22/21 04:10 BUN 16 mg/dL (8-23) 10/22/21 04:10 Creatinine 0.8 mg/dL (0.7-1.2) 10/22/21 04:10 GFR Calculation Not Reportable 10/22/21 04:10 Glucose 184 mg/dL (65-115) H 10/22/21 04:10 POC Glucose 175 mg/dL (70-110) H 10/23/21 06:07 Estimat Average Glucose 177 10/20/21 03:01 Hemoglobin A1c 7.8 % (4.0-6.0) H 10/20/21 03:01 Calculated Osmolality 282 mOsm/kg (285-295) L 10/22/21 04:10 Lactic Acid 1.4 mmol/L (0.5-2.2) 10/17/21 10:37 Calcium 8.0 mg/dL (8.5-10.5) L 10/22/21 04:10 Phosphorus 2.6 mg/dL (2.5-4.5) 10/20/21 03:01 Magnesium 1.9 mg/dL (1.7-2.3) 10/20/21 03:01 Total Bilirubin 0.6 mg/dL (0.15-1.2) 10/22/21 04:10 AST 56 U/L (0-40) H 10/22/21 04:10 ALT 59 U/L (0-41) H 10/22/21 04:10 Alkaline Phosphatase 115 IU/L (40-130) 10/22/21 04:10 NT-Pro-B Natriuret Pep 5252 pg/mL (0-450) H 10/17/21 09:51 Total Protein 5.6 g/dL (6.6-8.7) L 10/22/21 04:10 Albumin 2.6 g/dL (3.5-5.2) L 10/22/21 04:10 Globulin 3.0 g/dL (1.3-4.6) 10/22/21 04:10 Urine Color Yellow (Yellow) 10/19/21 14:50 Urine Appearance Cloudy (CLEAR) 10/19/21 14:50 Urine pH 7 (5-7) 10/19/21 14:50 Ur Specific [place] 1.005 (1.005-1.030) 10/19/21 14:50 Urine Protein Trace (Negative) 10/19/21 14:50 Urine Glucose (UA) 4+ (Normal) H 10/19/21 14:50 Urine Ketones Negative (Negative) 10/19/21 14:50 Urine Blood 3+ (Negative) H 10/19/21 14:50 Urine Nitrate Positive (Negative) H 10/19/21 14:50 Urine Bilirubin Neg (Negative) 10/19/21 14:50 Urine Urobilinogen Norm mg/dL (Negative) 10/19/21 14:50 Ur Leukocyte Esterase 2+ (Negative) H 10/19/21 14:50 Urine RBC 10-15 /hpf (0-2) H 10/19/21 14:50 Urine WBC Too numerous to cnt /hpf (0-5) H 10/19/21 14:50 Ur Squamous Epith Cells 0-4 /hpf (0-5) H 10/19/21 14:50 Amorphous Sediment Not Reportable 10/19/21 14:50 Urine Bacteria 2+ /hpf (NONE) H 10/19/21 14:50 Vitals Last Vital Signs Temp 98.7 F 10/23/21 04:00 Pulse 109 H 10/23/21 07:18 Resp 20 H 10/23/21 07:18 BP 140/86 10/23/21 07:18 Pulse Ox 92 10/23/21 07:18 Discharge Plan Discharge Patient Disposition: Hospice - Home Condition: Stable Prescriptions: New levofloxacin 750 mg tablet 750 mg PO DAILY 7 Days Qty: 7 0RF Continued tramadol 50 mg tablet 50 mg PO BID 0RF lisinopril 20 mg tablet 10 mg PO QAM 0RF Farxiga 5 mg tablet 5 mg PO QAM Qty: 30 2RF (DME) Wheelchair See Rx Instructions .Route .MEDSUPPLY Qty: 1 0RF Rx Instructions: As directed acetaminophen 500 mg Tablet 500 - 1,000 mg PO Q6H PRN (Reason: Pain) 0RF diltiazem HCl [Cardizem CD] 180 mg capsule,extended release 24hr 180 mg PO QAM 0RF sodium chloride 1 gram tablet 1,000 mg PO QAM 0RF tamsulosin [Flomax] 0.4 mg capsule 0.4 mg PO QAM 0RF furosemide 20 mg tablet 20 mg PO QAM 0RF gabapentin 600 mg tablet 600 mg PO BID 0RF sertraline 50 mg tablet 50 mg PO QPM 0RF memantine 10 mg tablet 10 mg PO BID 0RF Changed metoprolol tartrate 25 mg tablet 50 mg PO BID Qty: 120 3RF Discontinued meloxicam [Mobic] 15 mg tablet 15 mg PO QAM 0RF Hold Instructions: CKD rosuvastatin [Crestor] 10 mg tablet 10 mg PO DAILY Qty: 30 2RF calcium citrate-vitamin D3 [Citracal plus D] 315 mg-5 mcg (200 unit) Tablet 1 tab PO BID 0RF cholecalciferol (vitamin D3) [Vitamin D3] 125 mcg (5,000 unit) Tablet 125 mcg PO QAM 0RF Discharge Orders: Discharge Order (Routine); Ordered 10/23/21 Ordered By: Tiki Verma Referrals: Pamela Aguila MD [Primary Care Provider] - Discharge Diet: As Directed Patient Instructions: Levofloxacin (By mouth), Hospice Care Activity Restrictions/Additional Instructions: Dysphagia ground diet with honey thick liquid consistency For Pseudomonas we will continue 7 days of antibiotics Pain management as per hospice care Discharge Attestations Time Spent in Discharge Care*: less than 30 min Status at Discharge: Cognitive status at discharge: cognitively intact , Behavioral status at discharge: cooperative , Quality Metrics Clinical Quality Measures [ No reported AMI, CVA or VTE this stay] Coding Level of Care Code Acute g [facility] note Diagnoses Hypokalemia E87.6 UTI (urinary tract infection) N39.0 Hypoxia R09.02 Atrial fibrillation with rapid ventricular response I48.91 Cardiomyopathy I42.9 Cardiomyopathy type: unspecified Atrial fibrillation I48.91 Neuropathy G62.9 BPH loc w urin obs/LUTS N40.1 Diabetes mellitus with hyperglycemia, without long-term current use of insulin E11.65 Hyponatremia E87.1
[2021-10-23 11:40] LABS: Glucose Point of Care 244 mg/dL (70-110)
[2021-10-23] MEDS: ipratropium-albuterol 3 mL Neb INHALATION (14:21)
--- NOTE | 2021-10-23 16:10 | PC.NURSE ---
Discharge Note Patient discharged to home on hospice care via [facility] ambulance accompanied by family members. Discharge instructions reviewed with patient and/or circulation sales representative. Mobile pharmacy medications and/or prescriptions provided. Belongings/home medications returned.
== END 2021-10-23 14:30 | disposition hospice, home (50) | DRG 308 ==
LOC: ER 13:19 → ICU 15:02 → MEDSURG 10-18 11:53
PROVIDERS: Admitting Provider Internal Medicine; Emergency Provider Emergency Medicine; PCP Internal Medicine; Visit Provider Internal Medicine
DX: I48.91 Unspecified atrial fibrillation (principal); I50.31 Acute diastolic (congestive) heart failure; N13.8 Other obstructive and reflux uropathy; N39.0 Urinary tract infection, site not specified; E87.1 Hypo-osmolality and hyponatremia; N40.1 Benign prostatic hyperplasia with lower urinary tract symptoms; I42.9 Cardiomyopathy, unspecified; N41.1 Chronic prostatitis; E11.65 Type 2 diabetes mellitus with hyperglycemia; E11.40 Type 2 diabetes mellitus with diabetic neuropathy, unspecified; I11.0 Hypertensive heart disease with heart failure; M19.90 Unspecified osteoarthritis, unspecified site; J84.10 Pulmonary fibrosis, unspecified; I27.20 Pulmonary hypertension, unspecified; R06.89 Other abnormalities of breathing; E87.6 Hypokalemia; Z79.891 Long term (current) use of opiate analgesic; R13.10 Dysphagia, unspecified
CPT/HCPCS: 36415; 36416; 36600; 51702; 70450; 70551; 71045; 71275; 74230; 80048; 80053; 81001; 82803; 82962; 83036; 83605; 83735; 83880; 84100; 85025; 87077; 87086; 87186; 92523; 92526; 92610; 92611; 93005; 93306; 93970; 94640; 96365; 96366; 96372; 96375; 97110; 97116; 97162; 97530; 99285; G0378; J0696; J1815 ×2; J1940; J3480; J3490; Q9967